=== PATIENT | male | born 1945 | race African-American/Black ===

== ENCOUNTER 2019-11-16 22:38 | Inpatient (IN) | payer OTHER ==
[2019-11-16 23:19] LABS: Absolute Lymphocytes (CBC) 0.8 K/uL (0.7-4.9); Basophils % 0.4 % (0-1.3); Hematocrit 35.2 % (39.6-49.0); Lymphocytes % 5.9 % (15.3-44.8); MPV 9.1 fL (7.6-11.3); RBC Red Blood Cell Count 4.22 M/uL (4.33-5.43)
[2019-11-16 23:51] LABS: Protime INR 1.33
[2019-11-17 00:06] LABS: Albumin 3.7 g/dL (3.4-5.0); Bilirubin Direct 0.5 mg/dL (0-0.2); Magnesium 2.1 mg/dL (1.8-2.4); Potassium 3.8 mmol/L (3.5-5.1); Protein, Total 7.5 g/dL (6.4-8.2); Troponin (Emerg Dept Use Only) 0.06 ng/mL (0.0-0.045)
[2019-11-17 00:20] LABS: Anisocytosis 1+; Blood Morphology Comment NOTED (NOT SEEN); Platelet Estimate ADEQ
--- NOTE | 2019-11-17 01:53 | ER ---
Nurse's Notes [facility] Name: Eze Wallace Age: 74 yrs Sex: Male : 1945 Arrival Date: 11/16/2019 Time: 22:48 Bed 20 Private MD: Diagnosis: Unspecified combined systolic (congestive) and diastolic (congestive) heart failure;Weakness Presentation: 11/16 22:49 Presenting complaint: Child states: He fell yesterday walking down the ramp at his [place] house. we took him to the [place] to have him checked out because he usually walks well They discharged him after giving him potassium. Today he was having trouble getting around and slowly fell down in the bathroom. The last time this happened he was having oxygen depravation because of sleep apnea. Transition of care: patient was not received from another setting of care. Onset of symptoms was November 15, 2019. Risk Assessment: Do you want to hurt yourself or someone else? Patient reports no desire to harm self or others. Initial Sepsis Screen: Does the patient meet any 2 criteria? No. Patient's initial sepsis screen is negative. Does the patient have a suspected source of infection? No. Patient's initial sepsis screen is negative. Care prior to arrival: None. 22:49 Method Of Arrival: EMS: [facility] tl1 22:49 Acuity: MIRIAM 2 tl1 Historical: - Allergies: 22:58 No Known Allergies; tl1 - Home Meds: 22:58 Potassium Chloride Oral [Active]; Aspirin Oral [Active]; hydrochlorothiazide Oral tl1 [Active]; lisinopril Oral [Active]; tamulosin [Active]; Omeprazole Oral [Active]; carvedilol oral oral [Active]; atorvastatin oral oral [Active]; finasteride oral oral [Active]; - PMHx: 22:58 Hypertension; BPH; High Cholesterol; Obesity; tl1 - Immunization history:: Adult Immunizations up to date. - Social history:: Smoking status: Patient/guardian denies using tobacco, never smoked. - Ebola Screening: : Patient negative for fever greater than or equal to 101.5 degrees Fahrenheit, and additional compatible Ebola Virus Disease symptoms Patient denies exposure to infectious person Patient denies travel to an Ebola-affected area in the 21 days before illness onset. Screenin:11 Abuse screen: Denies threats or abuse. Denies injuries from another. Nutritional rv screening: No deficits noted. Tuberculosis screening: No symptoms or risk factors identified. Fall Risk None identified. Assessment: 23:10 General: Appears in no apparent distress. uncomfortable, Behavior is calm, cooperative. rv Pain: Complains of pain in knees, generalized. Neuro: Level of Consciousness is awake, alert, obeys commands, Oriented to person, place, time, situation. Cardiovascular: Patient's skin is warm and dry. Respiratory: Airway is patent. GI: No signs and/or symptoms were reported involving the gastrointestinal system. : No signs and/or symptoms were reported regarding the genitourinary system. EENT: No signs and/or symptoms were reported regarding the EENT system. Derm: Skin is intact. Musculoskeletal: No signs and/or symptoms reported regarding the musculoskeletal system. 11/17 01:34 Reassessment: Patient appears in no apparent distress at this time. Patient and/or rv family updated on plan of care and expected duration. Pain level reassessed. Patient is alert, oriented x 3, equal unlabored respirations, skin warm/dry/pink. awaiting CT scan result. Vital Signs: 11/16 23:00 BP 145 / 94; Pulse 93; Resp 19; Temp 98.9; Pulse Ox 98% on R/A; Weight 195.04 kg; tl1 Height 6 ft. 0 in. (182.88 cm); Pain 5/10; 11/17 00:00 BP 139 / 77; Pulse 87; Resp 18; Pulse Ox 97% on R/A; rv 01:00 BP 138 / 68; Pulse 96; Resp 18; Pulse Ox 96% on R/A; rv 02:18 BP 132 / 105; Pulse 103; Resp 22; Pulse Ox 97% on R/A; Pain 0/10; tl1 04:05 BP 138 / 90; Pulse 98; Resp 20; Temp 98.1; Pulse Ox 95% on R/A; Pain 0/10; tl1 11/16 23:00 Body Mass Index 58.32 (195.04 kg, 182.88 cm) tl1 ED Course: 11/16 22:48 Patient arrived in ED. tl1 22:51 Carlos Augustine MD is Attending Physician. tw4 22:51 Jai, Donn, RN is Primary Nurse. rv 22:54 Triage completed. tl1 23:00 Arm band placed on right wrist. tl1 23:11 Patient has correct armband on for positive identification. Bed in low position. Call rv light in reach. Side rails up X2. Adult w/ patient. Pulse ox on. NIBP on. 23:11 Inserted saline lock: 20 gauge in right antecubital area, using aseptic technique. rv Blood collected. Missed attempt(s): 22 gauge in right antecubital area. 23:29 XRAY Chest (1 view) In Process Unspecified. EDMS 12 00:49 CT completed. Pt tolerated procedure poorly. Patient moved to CT via stretcher. Patient moved back from CT. 01:01 CT Head Brain wo Cont In Process Unspecified. EDMS 01:51 Sheldon Paulino MD is Hospitalizing Provider. tw4 04:01 Pillow given. tl1 04:01 Cleaned of incontinence. Linen changed. tl1 04:01 No provider procedures requiring assistance completed. Patient admitted, IV remains in tl1 place. 04:10 Jean cath inserted, using sterile technique, 18 Fr., by pr, balloon inflated, to ao gravity drainage, returned didier urine. Patient tolerated well. Administered Medications: 02:18 Drug: Lasix 40 mg Route: IVP; Infused Over: 4 mins; Site: left forearm; tl1 04:40 Follow up: Response: No adverse reaction; Marked relief of symptoms tl1 Output: 04:39 Urine: 900ml (Jean); Total: 900ml. tl1 Outcome: 01:52 Decision to Hospitalize by Provider. tw4 04:39 Admitted to Tele accompanied by nurse, accompanied by tech, via stretcher, with chart. tl1 04:39 Condition: stable 04:39 Instructed on the need for admit. 04:41 Patient left the ED. tl1 Signatures: Dispatcher [employer] EDMS Chavez Melton Roseanne Rhodes, RN RN tl1 Terry Rodriguez RN RN ao Wadley, Terrence, MD MD tw4 Donn Vergara, SAMI RN rv
--- NOTE | 2019-11-17 01:53 | EDPHYS ---
Physician Documentation [facility] Name: Eze Wallace Age: 74 yrs Sex: Male : 1945 Arrival Date: 11/16/2019 Time: 22:48 Bed 20 Private MD: ED Physician Carlos Augustine HPI: 11/17 04:32 This 74 yrs old Black Male presents to ER via EMS with complaints of General Weakness. tw4 04:32 The patient presents with generalized weakness. Onset: The symptoms/episode tw4 began/occurred today. Context: occurred at home. Modifying factors: The symptoms are alleviated by nothing, the symptoms are aggravated by nothing. Associated signs and symptoms: The patient has no apparent associated signs or symptoms. Severity of symptoms: At their worst the symptoms were moderate in the emergency department the symptoms have resolved. The patient has not experienced similar symptoms in the past. Historical: - Allergies: 11/16 22:58 No Known Allergies; tl1 - Home Meds: 22:58 Potassium Chloride Oral [Active]; Aspirin Oral [Active]; hydrochlorothiazide Oral tl1 [Active]; lisinopril Oral [Active]; tamulosin [Active]; Omeprazole Oral [Active]; carvedilol oral oral [Active]; atorvastatin oral oral [Active]; finasteride oral oral [Active]; - PMHx: 22:58 Hypertension; BPH; High Cholesterol; Obesity; tl1 - Immunization history:: Adult Immunizations up to date. - Social history:: Smoking status: Patient/guardian denies using tobacco, never smoked. - Ebola Screening: : Patient negative for fever greater than or equal to 101.5 degrees Fahrenheit, and additional compatible Ebola Virus Disease symptoms Patient denies exposure to infectious person Patient denies travel to an Ebola-affected area in the 21 days before illness onset. ROS: 11/17 04:32 Constitutional: Negative for fever, chills, and weight loss, Eyes: Negative for injury, tw4 pain, redness, and discharge, Cardiovascular: Negative for chest pain, palpitations, and edema, Respiratory: Negative for shortness of breath, cough, wheezing, and pleuritic chest pain, Abdomen/GI: Negative for abdominal pain, nausea, vomiting, diarrhea, and constipation, Back: Negative for injury and pain, MS/Extremity: Negative for injury and deformity, Skin: Negative for injury, rash, and discoloration. Neuro: Positive for weakness, Negative for altered mental status, dizziness, gait disturbance, headache, hearing loss, loss of consciousness, numbness, seizure activity, speech changes, syncope. Psych: Exam: 04:32 Constitutional: This is a well developed, well nourished patient who is awake, alert, tw4 and in no acute distress. Head/Face: Normocephalic, atraumatic. Chest/axilla: Normal chest wall appearance and motion. Nontender with no deformity. No lesions are appreciated. Cardiovascular: Regular rate and rhythm with a normal S1 and S2. No gallops, murmurs, or rubs. Normal PMI, no JVD. No pulse deficits. Respiratory: Lungs have equal breath sounds bilaterally, clear to auscultation and percussion. No rales, rhonchi or wheezes noted. No increased work of breathing, no retractions or nasal flaring. Abdomen/GI: Soft, non-tender, with normal bowel sounds. No distension or tympany. No guarding or rebound. No evidence of tenderness throughout. Back: No spinal tenderness. No costovertebral tenderness. Full range of motion. MS/ Extremity: Pulses equal, no cyanosis. Neurovascular intact. Full, normal range of motion. Neuro: Awake and alert, GCS 15, oriented to person, place, time, and situation. Cranial nerves II-XII grossly intact. Motor strength 5/5 in all extremities. Sensory grossly intact. Cerebellar exam normal. Normal gait. Vital Signs: 11/16 23:00 BP 145 / 94; Pulse 93; Resp 19; Temp 98.9; Pulse Ox 98% on R/A; Weight 195.04 kg; tl1 Height 6 ft. 0 in. (182.88 cm); Pain 5/10; 11/17 00:00 BP 139 / 77; Pulse 87; Resp 18; Pulse Ox 97% on R/A; rv 01:00 BP 138 / 68; Pulse 96; Resp 18; Pulse Ox 96% on R/A; rv 02:18 BP 132 / 105; Pulse 103; Resp 22; Pulse Ox 97% on R/A; Pain 0/10; tl1 04:05 BP 138 / 90; Pulse 98; Resp 20; Temp 98.1; Pulse Ox 95% on R/A; Pain 0/10; tl1 11/16 23:00 Body Mass Index 58.32 (195.04 kg, 182.88 cm) tl1 MDM: 11/16 22:51 Patient medically screened. tw4 11/17 04:36 Differential diagnosis: cardiac arrhythmia, CVA, GI bleed. Data reviewed: vital signs, tw4 nurses notes. Data interpreted: Pulse oximetry: Interpretation: normal. Counseling: I had a detailed discussion with the patient and/or guardian regarding: the historical points, exam findings, and any diagnostic results supporting the discharge/admit diagnosis, lab results. Special discussion: I discussed with the patient/guardian in detail that at this point there is no indication for admission to the hospital. It is understood, however, that if the symptoms persist or worsen the patient needs to return immediately for re-evaluation. 04:37 Physician consultation: Sheldon Paulino MD regarding admission, to the telemetry unit. tw4 patient's condition, and will see patient in inpatient room. ED course: Pt underwent CT for previous neurologic symptoms that he had a day ago. CT scan negative. Pt CXR revealed CXR. will admit for weakness and CHf. D/W Dr Sanchez will obtain a neuro consult. 11/16 22:51 Order name: Basic Metabolic Panel; Complete Time: 00:24 tw4 11/17 00:26 Interpretation: Normal except: GLUC 109; BUN 26; CRE 1.40; GFR 60. tw4 11/16 22:51 Order name: CBC with Diff; Complete Time: 00:24 tw4 11/17 00:26 Interpretation: Normal except: WBC 13.0; RBC 4.22; HGB 11.6; HCT 35.2; MCV 83.5; LYM% tw4 5.9; GUSTAVO% 85.7; RDW 18.7; NEUT A 11.1. 11/16 22:51 Order name: LFT's; Complete Time: 00:24 4 11/17 00:27 Interpretation: Normal except: AST 109; BILIT 2.0; BILID 0.5; GLOB 3.8; A/G 1.0. tw4 11/16 22:51 Order name: Magnesium; Complete Time: 00:24 tw4 11/17 00:28 Interpretation: Within normal limits: MG 2.1. tw4 11/16 22:51 Order name: NT PRO-BNP; Complete Time: 00:24 tw4 11/17 00:27 Interpretation: Within normal limits: NT PRO-BNP 742. tw4 11/16 22:51 Order name: PT-INR; Complete Time: 00:24 tw4 11/17 00:27 Interpretation: Normal except: PT 15.5. tw4 11/16 22:51 Order name: Troponin (emerg Dept Use Only); Complete Time: 00:24 tw4 11/17 00:27 Interpretation: Abnormal: TROPED 0.06. tw4 11/16 23:51 Order name: Manual Differential; Complete Time: 00:24 EDMS 11/17 00:28 Interpretation: Normal except: SEGS 86; LYM 10. tw4 11/17 00:59 Order name: Urine Microscopic Only rv 11/17 01:00 Order name: Urine Dipstick--Ancillary (enter results) nj 11/17 02:31 Order name: Urine Culture EDCA 11/17 03:32 Order name: CBC with Automated Diff EDMS 11/17 03:32 Order name: CBC with Automated Diff EDMS 11/17 03:33 Order name: Comprehensive Metabolic Panel EDCA 11/16 22:51 Order name: XRAY Chest (1 view) tw4 11/17 00:22 Order name: CT Head Brain wo Cont rv 11/17 03:32 Order name: Echo with Doppler EDMS 11/17 03:33 Order name: Comprehensive Metabolic Panel EDMS 11/17 03:33 Order name: Magnesium EDMS 11/17 03:33 Order name: Magnesium EDMS 11/17 03:33 Order name: Phosphorus EDMS 11/17 03:33 Order name: Phosphorus EDMS 11/17 03:33 Order name: NT PRO-BNP EDMS 11/17 03:33 Order name: NT PRO-BNP EDMS 11/17 03:33 Order name: Protime (+INR) EDMS 11/17 03:33 Order name: Protime (+INR) EDMS 11/17 03:33 Order name: PTT, Activated Partial Thromb EDMS 11/17 03:33 Order name: PTT, Activated Partial Thromb EDMS 11/17 03:33 Order name: Troponin I EDMS 11/17 03:33 Order name: Troponin I EDMS 11/16 22:51 Order name: EKG; Complete Time: 22:57 tw4 11/16 22:51 Order name: Cardiac monitoring; Complete Time: 23:11 tw4 11/16 22:51 Order name: EKG - Nurse/Tech; Complete Time: 23:11 4 11/16 22:51 Order name: IV Saline Lock; Complete Time: 23:11 4 11/16 22:51 Order name: Labs collected and sent; Complete Time: 23:11 tw4 11/16 22:51 Order name: O2 Per Protocol; Complete Time: 23:11 tw4 11/16 22:51 Order name: O2 Sat Monitoring; Complete Time: 23:11 tw4 11/17 03:32 Order name: [facility] 11/17 04:02 Order name: Jean; Complete Time: 04:40 tl1 EC:32 Rate is 86 beats/min. Rhythm is regular. QRS [place] is Normal. ID interval is normal. QT tw4 interval is normal. No Q waves. T waves are Inverted in leads V3, V4, V5. No ST changes noted. Clinical impression: NSR w/ Non-specific ST/T Changes. Interpreted by me. Reviewed by me. Administered Medications: 02:18 Drug: Lasix 40 mg Route: IVP; Infused Over: 4 mins; Site: left forearm; tl1 04:40 Follow up: Response: No adverse reaction; Marked relief of symptoms tl1 Disposition: 11/17/19 01:52 Hospitalization ordered by Sheldon Paulino for Inpatient Admission. Preliminary diagnosis are Unspecified combined systolic (congestive) and diastolic (congestive) heart failure, Weakness. - Bed requested for Telemetry/MedSurg (Inpatient). - Status is Inpatient Admission. tl1 - Condition is Stable. - Problem is new. - Symptoms are unchanged. UTI on Admission? No Signatures: Dispatcher [employer] [facility] Roseanne Rhodes RN RN tl1 Liyah Hart RN RN Carlos Augustine MD MD tw4 Corrections: (The following items were deleted from the chart) 03:43 01:52 Hospitalization Ordered by Sheldon Paulino MD for Inpatient Admission. Preliminary cg diagnosis is Unspecified combined systolic (congestive) and diastolic (congestive) heart failure; Weakness. Bed requested for Telemetry/MedSurg (Inpatient). Status is Inpatient Admission. Condition is Stable. Problem is new. Symptoms are unchanged. UTI on Admission? No. tw4 04:41 03:43 11/17/2019 01:52 Hospitalization Ordered by Sheldon Paulino MD for Inpatient tl1 Admission. Preliminary diagnosis is Unspecified combined systolic (congestive) and diastolic (congestive) heart failure; Weakness. Bed requested for Telemetry/MedSurg (Inpatient). Status is Inpatient Admission. Condition is Stable. Problem is new. Symptoms are unchanged. UTI on Admission? No. cg
[2019-11-17] MEDS ORDERED: FUROSEMIDE 40 MG/4 ML VIAL ONE (02:08)
[2019-11-17 02:27] LABS: Urine Bacteria >50 /HPF (NONE SEEN); Urine Culture Reflex Order REFLEXED; Urine Mucus 4+ /HPF (NONE SEEN); Urine RBC <5 /HPF (NONE SEEN); Urine Urothelial Cells <5 /HPF (NONE SEEN)
[2019-11-17 02:28] LABS: Urine Blood 2+ (NEG); Urine Glucose NEGATIVE (NEG); Urine Protein 2+ (NEG); Urine Specific Gravity >1.030 (1.005-1.030)
[2019-11-17] MEDS ORDERED: ACETAMINOPHEN 500 MG TAB PO PRN (03:26)
[2019-11-17] MEDS ORDERED: ONDANSETRON 4 MG/2 ML VIAL IV PRN (03:26)
[2019-11-17] MEDS ORDERED: POTASSIUM CL SA 10 MEQ TAB PO ONE (05:26)
[2019-11-17] MEDS: FUROSEMIDE 40 MG/4 ML VIAL IV SCH ×3 (05:48→17:15)
[2019-11-17] MEDS ORDERED: HYDROCORTISONE SUC 100 MG INJ IV ONE ×2 (05:50→22:34)
[2019-11-17] MEDS: METOPROLOL TAR 50 MG TAB PO SCH ×3 (06:20→21:41)
[2019-11-17] MEDS ORDERED: CEFTRIAXONE/SWI 1gm 1 GM/10 ML SYR IV SCH (07:00)
--- NOTE | 2019-11-17 07:49 | EKG ---
Test Date: 2019-11-16 Test Time: 23:16:04 Sales Porter: DINO MEASUREMENT RESULTS: Intervals: Rate: 86 RI: 176 QRSD: 110 QT: 376 QTc: 449 [place]: P: 40 RI: 176 QRS: -19 T: -31 INTERPRETIVE STATEMENTS: Normal sinus rhythm Nonspecific T wave abnormality Abnormal ECG Compared to ECG 02/16/2007 15:51:30 T-wave abnormality now present Electronically Signed On 11-17-19 07:49:00 SECRETARY ADMINISTRATIVE ASSISTANT by Milo Wilson
--- NOTE | 2019-11-17 08:09 | RAD REPORT ---
EXAM DESCRIPTION: RAD - Chest Single View - 11/16/2019 11:29 pm CLINICAL HISTORY: MALAISE Chest pain. COMPARISON: No comparisons FINDINGS: Portable technique limits examination quality. Mild to moderate pulmonary edema is seen bilaterally. The heart is moderately enlarged with a tortuou s thoracic aorta. No displaced fractures.
--- NOTE | 2019-11-17 08:13 | RAD REPORT ---
EXAM DESCRIPTION: RAD - Knee Left 2 View - 11/17/2019 6:57 am CLINICAL HISTORY: pain COMPARISON: Chest Single View dated 11/16/2019 FINDINGS: The examination is limited due to nonstandard anatomic positioning. Severe tricompartmenta l osteoarthritis is noted with [id number]. A small suprapatellar joint effusion is evident. Soft ti ssue swelling is evident along the anterior aspect of the knee. Bony fragmentation along the inferior patella seen, age undetermined. Correlation with point tenderness in this region would be suggested. IMPRESSION: Advanced tricompartmental osteoarthritis.
[2019-11-17] MEDS: CLOPIDOGREL 75 MG TABLET PO SCH (08:25)
[2019-11-17] MEDS: ASPIRIN EC 81 MG TAB PO SCH (08:25)
[2019-11-17] MEDS: ENOXAPARIN 40 MG/0.4 ML SQ SCH (08:25)
--- NOTE | 2019-11-17 08:30 | P.HP ---
Certification for Inpatient Patient admitted to: Inpatient With expected LOS: >2 Midnights Patient will require the following post-hospital care: None Practitioner: I am a practitioner with admitting privileges, knowledge of patient current condition, hospital course, and medical plan of care. Services: Services provided to patient in accordance with Admission requirements found in Title 42 Section 412.3 of the Code of Federal Regulations Patient History Date of Service: 11/17/19 Reason for admission: Syncope; knee pain History of Present Illness: Patient is a 74-year-old gentleman who fell a few days ago. He apparently had a near syncopal event but was able to catch himself. He went to the emergency room at the [facility] in his workup was unremarkable. He was sent home but he has continued to have pain in his knee. He tried to stand up yesterday and fell to his knees. He came into the hospital for further evaluation. Into the emergency room his workup revealed bilateral arthropathy as well as dyspnea. He has been short of breath for the last few days. Is given him a hard time getting around. He will be admitted to the hospital for CHF exacerbation. He does have bilateral warm knees and it appears he may have arthropathy. Unknown etiology. Patient has multiple comorbidities. He has morbid obesity, hypertension, diabetes, and patient also has lymphedema. He will be admitted to the hospital for further workup. Allergies No Known Allergies Allergy (Verified 11/17/19 04:55) Home Medications: Acetaminophen [Tylenol] 2 tab PO BIDP PRN 11/17/19 Aspirin Chewable [Aspirin Chewable*] 1 tab PO DAILY 11/17/19 Atorvastatin Calcium [Lipitor] 1 tab PO DAILY 11/17/19 Carvedilol [Coreg] 1 tab PO BID 11/17/19 Cetirizine HCl [Allergy Relief] 1 tab PO DAILY PRN 11/17/19 Finasteride [Proscar*] 1 tab PO DAILY 11/17/19 Lisinopril [Zestril] 1 tab PO DAILY 11/17/19 Omeprazole [Prilosec] 1 tab PO DAILY 11/17/19 Potassium Chloride 1 tab PO DAILY 11/17/19 Tamsulosin [Flomax*] 1 tab PO DAILY 11/17/19 hydroCHLOROthiazide [Hydrochlorothiazide] 1 tab PO DAILY 11/17/19 - Past Medical/Surgical History Has patient received pneumonia vaccine in the past: Yes Diabetic: Yes -: sleep apnea -: HTN -: HLD -: obesity -: lymphedema -: DM-borderline not on medication -: CHF Past Surgical History: Patient denies surgical history - Family History Father History Unknown: Yes Mother History Unknown: Yes - Social History Smoking Status: Former smoker Alcohol use: No CD- Drugs: No Caffeine use: No Place of Residence: Home Review of Systems 10-point ROS is otherwise unremarkable Physical Examination - Vital Signs Temperature: 98.7 F Blood Pressure: 145/74 Pulse: 82 Respirations: 16 Pulse Ox (%): 94 - Physical Exam General: Alert, In no apparent distress, Oriented x3 HEENT: Atraumatic, PERRLA, Mucous membr. moist/pink, EOMI, Sclerae nonicteric Neck: Supple, 2+ carotid pulse no bruit, No LAD, Without JVD or thyroid abnormality Respiratory: Diminished, Crackles/rales Cardiovascular: Regular rate/rhythm, Normal S1 S2, Systolic murmur Gastrointestinal: Normal bowel sounds, Soft and benign, Non-distended, No tenderness Musculoskeletal: No clubbing, No tenderness, Swelling Integumentary: No rashes, Tenderness/swelling Neurological: Normal gait, Normal speech, Normal strength at 5/5 x4 extr, Normal tone, Sensation intact, Cranial nerves 3-12 intact, Normal affect Lymphatics: No axilla or inguinal lymphadenopathy - Studies Laboratory Data (last 24 hrs) 11/16/19 23:05: PT 15.5 H, INR 1.33 11/16/19 23:05: WBC 13.0 H, Hgb 11.6 L, Hct 35.2 L, Plt Count 205 11/16/19 23:05: Sodium 141, Potassium 3.8, BUN 26 H, Creatinine 1.40 H, Glucose 109 H, Magnesium 2.1, Total Bilirubin 2.0 H, AST 109 H, ALT 53, Alkaline Phosphatase 76 Assessment & Plan - Problems (Diagnosis) (1) Lymphedema Current Visit: Yes Status: Acute (2) Congestive heart failure Current Visit: Yes Status: Acute Qualifiers: Heart failure type: systolic Heart failure chronicity: acute Qualified Code(s): I50.21 - Acute systolic (congestive) heart failure (3) Hypertension Current Visit: Yes Status: Acute (4) Type 2 diabetes mellitus Current Visit: Yes Status: Acute (5) Status post fall Current Visit: Yes Status: Acute (6) Syncope Current Visit: Yes Status: Acute (7) Morbid obesity with BMI of 60.0-69.9, adult Current Visit: Yes Status: Acute - Plan 1. Echocardiogram 2. Continue with treatment of her arthropathy 3. Continue with low dose Beta paulina 4. Cardiology consultation 5. Aggressive diuresis 6. Strict I's and O's 7. Repeat CXR 8. Daily weights 9. Anti-inflammatory but avoid NSAIDs 10. Physical therapy consultation 11. GI and DVT prophylaxis Discharge Plan: Home Plan to discharge in: Greater than 2 days - Advance Directives Does patient have a Living Will: Yes Does patient have a Durable POA for Healthcare: Yes - Code Status/Comfort Care Code Status Assessed: Yes Code Status: Full Code Critical Care: No Time Spent Managing PTS Care (In Minutes): 45
--- NOTE | 2019-11-17 11:23 | RAD REPORT ---
EXAM DESCRIPTION: Head Brain Wo Cont CLINICAL HISTORY: WEAKNESS COMPARISON: None Available. TECHNIQUE: Multiple helical axial tomographic images were obtained of the head without intravenous c ontrast. This exam was performed according to our departmental dose-optimization program, which inclu hardeep automated exposure control, adjustment of the mA and/or kV according to patient size and/or use o f iterative reconstruction technique. FINDINGS: Mild generalized brain volume loss is demonstrated. There is mild hypoattenuation in the c erebral white matter which is nonspecific but suggestive of chronic microvascular ischemic changes. T here is no acute intracranial hemorrhage. No mass. No midline shift. No ventriculomegaly. Blake-white matter differentiation is maintained. Paranasal sinuses are clear. Mastoid air cells and middle ear spaces are clear. Orbits and orbital co ntents are unremarkable. Osseous structures are unremarkable. Surrounding soft tissues are unremarkable. IMPRESSION: No acute intracranial process. Electronically signed by: Walt Gambino MD 11/17/2019 1:04 AM SOLDERER Due to temporary technical issues with the PACS/Fluency reporting system, reports are being signed by the in house radiologist as a courtesy to ensure prompt reporting. The interpreting radiologist is f ully responsible for the content of the report.
--- NOTE | 2019-11-17 14:32 | P.PN ---
Date of Service: 11/17/19 Patient states he feels much better after IV Lasix given in the ED. He is diuresing. He is currently not orthopneic. He is complaining of pain in bilateral knees. Breath sounds are diminished on lung auscultation. Bilateral knee is warm to touch, more swollen on the left and tender. Continue IV Lasix Jean catheter inserted, strict I&Os. Echocardiogram is pending. Knee x-ray report severe osteoarthritis. Check uric acid level Pain management as needed.
[2019-11-17] MEDS: CEFTRIAXONE/SWI 1gm 1 GM/10 ML SYR IV SCH (21:41)
[2019-11-17] MEDS ORDERED: WATER FOR INJ,STERILE 10 ML ONE (22:55)
[2019-11-18 06:10] LABS: Protime INR 1.18
[2019-11-18 06:22] LABS: Albumin 2.9 g/dL (3.4-5.0); Bilirubin Total 1.1 mg/dL (0.2-1.0); Magnesium 2.2 mg/dL (1.8-2.4); Potassium 3.7 mmol/L (3.5-5.1); Protein, Total 6.4 g/dL (6.4-8.2); Uric Acid 4.8 mg/dL (3.5-7.2)
[2019-11-18 06:39] LABS: Absolute Lymphocytes (CBC) 0.8 K/uL (0.7-4.9); Basophils % 0.4 % (0-1.3); Hematocrit 31.5 % (39.6-49.0); Lymphocytes % 8.2 % (15.3-44.8); RBC Red Blood Cell Count 3.79 M/uL (4.33-5.43)
--- NOTE | 2019-11-18 07:51 | ECHO ---
HEIGHT: 6 ft 0 in WEIGHT: 427 lb 8 oz DATE OF STUDY: 11/17/[address]: Sheldon Paulino MD 2-DIMENSIONAL: YES M.MODE: YES DOPPLER: YES COLOR FLOW: YES TDS: YES PORTABLE: NO DEFINITY: NO BUBBLE STUDY: NO DIAGNOSIS: CONGESTIVE HEART FAILURE CARDIAC HISTORY: CATHERIZATION: NO SURGERY: NO PROSTHETIC VALVE: NO PACEMAKER: NO MEASUREMENTS (cm) DIASTOLIC (NORMALS) SYSTOLIC (NORMALS) IVSd 1.3 (0.6-1.2) LA Diam 4.1 (1.9-4.0) LVEF 59% LVIDd 4.7 (3.5-5.7) LVIDs 3.2 (2.0-3.5) %FS 31% LVPWd 1.3 (0.6-1.2) Ao Diam 3.0 (2.0-3.7) 2 DIMENSIONAL ASSESSMENT: RIGHT ATRIUM: NORMAL LEFT ATRIUM: DILATED RIGHT VENTRICLE: NORMAL LEFT VENTRICLE: LEFT VENTRICULAR HYPERTROPHY TRICUSPID VALVE: NORMAL MITRAL VALVE: NORMAL PULMONIC VALVE: NORMAL AORTIC VALVE: SCLEROSIS PERICARDIAL EFFUSION: NONE AORTIC ROOT: NORMAL LEFT VENTRICULAR WALL MOTION: NORMAL DOPPLER/COLOR FLOW: NO AORTIC STENOSIS OR AORTIC REGURGITATION. IMPAIRED LEFT VENTRICULAR RELAXATION. COMMENTS: NORMAL LEFT VENTRICULAR EJECTION FRACTION. LEFT VENTRICULAR HYPERTROPHY. AORTIC SCLEROSIS WITH NO AORTIC STENOSIS OR AORTIC REGURGITATION. IMPAIRED LEFT VENTRICULAR RELAXATION. TECHNOLOGIST: Joy DYE
[2019-11-18] MEDS ORDERED: POTASSIUM CL SA 10 MEQ TAB PO ONE (08:00)
[2019-11-18] MEDS: CLOPIDOGREL 75 MG TABLET PO SCH (08:38)
[2019-11-18] MEDS: METOPROLOL TAR 50 MG TAB PO SCH ×2 (08:38→20:40)
[2019-11-18] MEDS: ASPIRIN EC 81 MG TAB PO SCH (08:39)
[2019-11-18] MEDS: FUROSEMIDE 40 MG/4 ML VIAL IV SCH ×2 (08:39→18:11)
[2019-11-18] MEDS: ENOXAPARIN 40 MG/0.4 ML SQ SCH (08:39)
--- NOTE | 2019-11-18 12:35 | P.PN ---
Subjective Date of Service: 11/18/19 Chief Complaint: Falls; knee pain Patient states he feels much better today. He reports less pain in bilateral knee are better. He is not orthopneic. Physical Examination - Vital Signs Temperature: 97.0 F Blood Pressure: 138/71 Pulse: 67 Respirations: 20 Pulse Ox (%): 97 - Physical Exam General: Alert, In no apparent distress HEENT: Mucous membr. moist/pink Neck: JVD not distended Respiratory: Clear to auscultation bilaterally (Trace bilateral lower extremity edema), Diminished Cardiovascular: Edema Gastrointestinal: Normal bowel sounds, Soft and benign, No tenderness Musculoskeletal: Other (Left knee swelling with mild erythema.) Neurological: Normal speech, Other (No focal deficits) Assessment And Plan - Current Problems (Diagnosis) (1) Acute diastolic heart failure Current Visit: Yes Status: Acute (2) Arthritis Current Visit: Yes Status: Acute (3) Lymphedema Current Visit: Yes Status: Acute (4) Morbid obesity with BMI of 60.0-69.9, adult Current Visit: Yes Status: Acute (5) Status post fall Current Visit: Yes Status: Acute (6) Type 2 diabetes mellitus Current Visit: Yes Status: Acute (7) UTI (urinary tract infection) Current Visit: Yes Status: Acute - Plan Continue IV Lasix for diuresis CHF and lymphedema. Continue IV Rocephin for UTI. Urine culture report mixed growth. Patient knee pain and swelling seems to have improved after a couple of shots of IV hydrocortisone. Will start short course oral prednisone 20 mg daily. Continue PT and OT PT recommended inpatient rehab versus skilled rehab Check hemoglobin A1c.
[2019-11-18] MEDS: CEFTRIAXONE/SWI 1gm 1 GM/10 ML SYR IV SCH (20:40)
[2019-11-19 07:08] VITALS: BMI 57.1
[2019-11-19 07:10] LABS: BUN Blood Urea Nitrogen 21 mg/dL (7-18); Bicarbonate 34 mmol/L (21-32); Glucose Level 106 mg/dL (74-106); Potassium 3.2 mmol/L (3.5-5.1); Sodium Level 142 mmol/L (136-145)
[2019-11-19] MEDS ORDERED: predniSONE 20 MG TAB PO SCH (09:00)
[2019-11-19] MEDS: ASPIRIN EC 81 MG TAB PO SCH (09:57)
[2019-11-19] MEDS: METOPROLOL TAR 50 MG TAB PO SCH (09:57)
[2019-11-19] MEDS: CLOPIDOGREL 75 MG TABLET PO SCH (09:58)
[2019-11-19] MEDS: FUROSEMIDE 40 MG/4 ML VIAL IV SCH ×2 (09:58→17:24)
[2019-11-19] MEDS: ENOXAPARIN 40 MG/0.4 ML SQ SCH (09:58)
[2019-11-19 12:17] VITALS: BP 160/83; TEMP 97.1
[2019-11-19] MEDS ORDERED: POTASSIUM 25 MEQ EFFERV TAB PO SCH (13:00)
--- NOTE | 2019-11-19 16:13 | P.PN ---
Subjective Date of Service: 11/19/19 Chief Complaint: Falls; knee pain No major changes from yesterday. He reports weakness in bilateral knees. He denies any shortness of breath. Physical Examination - Vital Signs Temperature: 97.1 F Blood Pressure: 160/83 Pulse: 88 Respirations: 18 Pulse Ox (%): 95 - Physical Exam General: In no apparent distress, Obese Neck: JVD not distended Respiratory: Clear to auscultation bilaterally, Diminished Cardiovascular: Regular rate/rhythm, Normal S1 S2 Gastrointestinal: Soft and benign, No tenderness Musculoskeletal: Other (Bilateral lower extremity, bilateral knees swelling have improved.) Neurological: Normal speech, Normal strength at 5/5 x4 extr - Studies Microbiology Data (last 24 hrs): 11/17/19 00:50 Clean Catch Urine [place] Count - Final >100,000 CFU/ML. 11/17/19 00:50 Clean Catch Urine - Final MIXED [place]. Assessment And Plan - Current Problems (Diagnosis) (1) Acute diastolic heart failure Current Visit: Yes Status: Acute (2) Arthritis Current Visit: Yes Status: Acute (3) Lymphedema Current Visit: Yes Status: Acute (4) Morbid obesity with BMI of 60.0-69.9, adult Current Visit: Yes Status: Acute (5) Status post fall Current Visit: Yes Status: Acute (6) Type 2 diabetes mellitus Current Visit: Yes Status: Acute (7) UTI (urinary tract infection) Current Visit: Yes Status: Acute - Plan Continue IV Lasix for diuresis CHF and lymphedema. Continue IV Rocephin for UTI. Urine culture report mixed growth. Planning for 5 days of antibiotic treatment for UTI. Continue oral prednisone 20 mg daily. Continue PT and OT PT recommended inpatient rehab versus skilled rehab
[2019-11-19 16:39] VITALS: O2SAT 93
--- NOTE | 2019-11-19 17:52 | P.DS ---
Admission Date: 11/17/19 Discharge Date: 11/19/19 Disposition: TRANSFER TO INPATIENT REHAB Discharge Condition: FAIR Reason for Admission: Falls; knee pain - Problems (1) Acute diastolic heart failure Current Visit: Yes Status: Acute (2) Arthritis Current Visit: Yes Status: Acute (3) Lymphedema Current Visit: Yes Status: Acute (4) Morbid obesity with BMI of 60.0-69.9, adult Current Visit: Yes Status: Acute (5) Status post fall Current Visit: Yes Status: Acute (6) Type 2 diabetes mellitus Current Visit: Yes Status: Acute (7) UTI (urinary tract infection) Current Visit: Yes Status: Acute Brief History of Present Illness: 74-year-old gentleman with a history of hypertension, morbidly obese presented to the ED with a complaint of weakness and pain in his bilateral knees. His EKG demonstrate sinus rhythm with nonspecific T-wave abnormality. Chest x-ray demonstrates findings suggestive of vascular congestion. His troponin was mildly elevated to 0.06. The patient had no complaint of chest. His bilateral knees were swollen, worse on the left. His knee x-rays reported advanced osteoarthritis. The patient was admitted for further management. Hospital Course: He was treated with IV Lasix and diuresed well with it. His shortness of breath improved. Echocardiogram was performed which reported normal EF. His renal function was stable. He was also placed on steroids with improvement in his bilateral knee pain and swelling. His UA suggested the presence of UTI. Urine culture yielded mixed growth. Patient was treated with IV Rocephin for UTI. Patient was seen by physical therapy and inpatient rehab recommended. He has been accepted for rehab. Patient is therefore discharged for acute rehab. Her home medications have been resumed on discharge. He is also prescribed Lasix 40 mg daily. He is also prescribed Augmentin for 5 days to complete treatment for UTI. Vital Signs/Physical Exam: Temp Pulse Resp BP Pulse Ox 97.1 F 88 18 160/83 H 95 11/19/19 16:13 11/19/19 17:24 11/19/19 16:13 11/19/19 17:24 11/19/19 16:13 General: In no apparent distress, Obese HEENT: Mucous membr. moist/pink Neck: JVD not distended Respiratory: Clear to auscultation bilaterally, Normal air movement, Diminished Cardiovascular: Regular rate/rhythm, Normal S1 S2, Edema Gastrointestinal: Normal bowel sounds, Soft and benign, No tenderness Musculoskeletal: Other (Bilateral lower extremity lymphedema) Neurological: Normal speech, Normal strength at 5/5 x4 extr Laboratory Data at Discharge: WBC 9.2 K/uL (4.3-10.9) D 11/18/19 05:34 Hgb 10.7 g/dL (13.6-17.9) L 11/18/19 05:34 Hct 31.5 % (39.6-49.0) L 11/18/19 05:34 Plt Count 184 K/uL (152-406) 11/18/19 05:34 PT 13.8 SECONDS (9.5-12.5) H 11/18/19 05:34 INR 1.18 11/18/19 05:34 APTT 25.0 SECONDS (24.3-36.9) 11/18/19 05:34 Sodium 142 mmol/L (136-145) 11/19/19 06:15 Potassium 3.2 mmol/L (3.5-5.1) L 11/19/19 06:15 BUN 21 mg/dL (7-18) H 11/19/19 06:15 Creatinine 0.96 mg/dL (0.55-1.3) 11/19/19 06:15 Glucose 106 mg/dL (74-106) 11/19/19 06:15 Uric Acid 4.8 mg/dL (3.5-7.2) 11/18/19 05:34 Phosphorus 3.0 mg/dL (2.5-4.9) 11/18/19 05:34 Magnesium 2.2 mg/dL (1.8-2.4) 11/18/19 05:34 Total Bilirubin 1.1 mg/dL (0.2-1.0) H 11/18/19 05:34 AST 91 U/L (15-37) H 11/18/19 05:34 ALT 60 U/L (12-78) 11/18/19 05:34 Alkaline Phosphatase 63 U/L (45-117) 11/18/19 05:34 Troponin I 0.06 ng/mL (0.0-0.045) H 11/17/19 07:10 Home Medications: Acetaminophen [Tylenol] 2 tab PO BIDP PRN 11/17/19 Aspirin Chewable [Aspirin Chewable*] 1 tab PO DAILY 11/17/19 Atorvastatin Calcium [Lipitor] 1 tab PO DAILY 11/17/19 Carvedilol [Coreg] 1 tab PO BID 11/17/19 Cetirizine HCl [Allergy Relief] 1 tab PO DAILY PRN 11/17/19 Finasteride [Proscar*] 1 tab PO DAILY 11/17/19 Lisinopril [Zestril] 1 tab PO DAILY 11/17/19 Omeprazole [Prilosec] 1 tab PO DAILY 11/17/19 Potassium Chloride 1 tab PO DAILY 11/17/19 Tamsulosin [Flomax*] 1 tab PO DAILY 11/17/19 hydroCHLOROthiazide [Hydrochlorothiazide] 1 tab PO DAILY 11/17/19 Amox/Clavulanate [Augmentin 875-125 Tab] 1 each PO BID #10 tab 11/19/19 Clopidogrel Bisulfate [Plavix*] 75 mg PO DAILY tablet 11/19/19 predniSONE [Prednisone*] 20 mg PO DAILY tab 11/19/19 New Medications: Amox/Clavulanate [Augmentin 875-125 Tab] 1 each PO BID #10 tab Diet: ADA Activity: Fall precautions Time spent managing pt's care (in minutes): 40
[2019-11-20] MEDS ORDERED: POTASSIUM 25 MEQ EFFERV TAB PO SCH (09:00)
== END 2019-11-19 19:55 | DRG 292 ==
LOC: ER 22:38 → ERHOLD 11-17 03:26 → 4TH 11-17 04:07
PROVIDERS: ADMIT Hospitalist; ATTEND Internal Medicine
DX: I11.0 Hypertensive heart disease with heart failure (principal); N39.0 Urinary tract infection, site not specified; Z68.44 Body mass index [BMI] 60.0-69.9, adult; I50.32 Chronic diastolic (congestive) heart failure; E66.01 Morbid (severe) obesity due to excess calories; E11.9 Type 2 diabetes mellitus without complications; E78.5 Hyperlipidemia, unspecified; G47.30 Sleep apnea, unspecified; R55 Syncope and collapse; Z91.81 History of falling
CPT/HCPCS: 36415; 51702; 70450; 71045; 80048; 80053; 80076; 81003; 81015; 82140; 83036; 83605; 83735; 83880; 84100; 84484; 84550; 85025; 85610; 85730; 87086; 87088; 93005; 93306; 96374; 97110; 97116; 97161; 97530; 99285; J0696; J1650; J1720; J1940; J7512

== ENCOUNTER 2019-11-19 15:29 | Inpatient (IN) | payer OTHER ==
--- NOTE | 2019-11-19 16:52 | R.PREADM ---
SCREENING DATE AND TIME 11/19/2019 16:11 (PRINTER FLOOR COVERING ASSISTANT) ANTICIPATED REHAB ADMISSION DATE 11/21/2019 REFERRING FACILITY [facility] REFERRAL DATE AND TIME 11/19/2019 16:11 (PRINTER FLOOR COVERING ASSISTANT) REFERRAL OFFICE PHONE [phone] REFERRAL ROOM# [id number] ACUTE ADMIT DATE 11/17/2019 Previous Rehabilitation(s): No. 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 Laureano Waller M.D. MR# [id number] NAME MELYSSA OBANDO ADDRESS [address] PHONE [facility] [address] DATE OF 1945 AGE 74 SSN# [id number] GENDER male MARITAL STATUS RACE black ADMIT FROM 02 - [facility] PRE-HOSPITAL LIVING SETTING 01 - Home (private home/apt. board/care, assisted living, penitentiary, transitional living) HOME TYPE AND DETAILS Type of home: single family house # of levels in the residence: 0 # of steps within the residence: 0 # of steps to enter the residence: 0 PRE-HOSPITAL LIVING WITH Alone FAMILY SUPPORT Yes PRIMARY FAMILY CONTACT NAME LUCAS BENTON PRIMARY FAMILY CONTACT PHONE 1ST EMERGENCY CONTACT LUCAS BENTON 1ST CONTACT PHONE PHONE 2ND CONTACT ON ADM.? no PATIENT EMPLOYMENT STATUS Retired (for age) PATIENT EMPLOYER No Employer PAYOR INFORMATION: 1ST PAYOR NAME Medicare 1ST PAYOR PHONE [phone] 1ST PAYOR INJURY/ILLNESS DUE TO ACCIDENT? No ANOTHER DEMOCRAT RESPONSIBLE? No PRIMARY REHAB/ACUTE DIAGNOSIS: CHF EXACERBATION ONSET DATE 11/17/2019 REHAB IMPAIRMENT CATEGORY (KAITLYN): 14 Cardiac does NOT meet 60% rule PRIMARY DIAGNOSIS-RELATED SURGERIES: No surgeries related to the primary diagnosis were performed. COMORBID REHAB/ACUTE DIAGNOSES: - N/A SLEEP APNEA HTN HLD OBESITY Chronic Lymphedema DM-BORDERLINE NOT ON MEDICATION CHF INTERVENTIONS: - Sleep Apnea 02 sats Oxygen Respiratory management RISK FOR COMPLICATIONS: - Sleep Apnea Anoxia BI CVA Fatigue CA SUMMARY OF ACUTE HOSPITALIZATION: Pt. is a 74 yo Right-handed black male. On 11/17/2019 he was admitted to [facility] with diagnosis CHF EXACERBATION . His impairment category is Cardiac 09 - Cardiac Disorders (09). Pre-morbidly, Pt. was independent/mod-I in Locomotion, Safety Awareness, Social Cognition, Transfers Control, Balance, Sphincter Control, Self-Care, Endurance, and Communication; and he had good Locomot ion, Safety Awareness, Balance, Social Cognition, Transfers Control, Sphincter Control, Communication , Endurance, and Self-Care. Currently, he has deficits of locomotion, transfers control, endurance, and self care . Pt. is now referred to [facility] for acute in-patient rehabilitation in order to maximize patient's functional independence in activities of daily living, strength, ROM, and mobi lity. Patient has realistic goal of being discharged at assistance level 6-[place] to reside at Home with Fam braden/Relatives. Melyssa Obando is a 77 year old male that lives alone in a single divine house. Modified independent with all ADLs and self care. On 11/17/2019, patient fell and his work up revealed bilateral arthropathy as well as dyspnea and has been short of breath for the last few days and was admitted to [facility] and treated. He is now medically stable but in need of 24-hour nursing, doctor supervision and oversite while receiving acti ve and ongoing intensive (PT, reasonably expected to participate in 3hours of therapy a day/15 hours per week and receive care with an intensive interdisciplinary approach. PAST MEDICAL HISTORY CHF Chronic Lymphedema DM-BORDERLINE NOT ON MEDICATION HLD HTN OBESITY SLEEP APNEA PAST SURGICAL HISTORY: N/A MEDICATION ALLERGIES: No Known Drug Allergies (NKDA) ENVIRONMENTAL ALLERGIES: None Known - Substance Allergies None Known - Other Allergies None Known CODE STATUS: Full code WEIGHT/HEIGHT/BMI: WEIGHT 427 lbs HEIGHT 6' 0" BMI 57.9 DIET: - Diet Type Regular - Diet - Solid Texture Regular - Diet - Liquid Texture Regular - Tube Feed N/A REVIEW OF SYSTEMS: - Gen Alert and awake Lying in bed No apparent distress Oriented to: person, time, and place - Vital Signs Temperature: 97.1 F SBP/DBP: 160/83 Pulse: 88 Resp: 18 Vital signs stable, afebrile - CVS RRR VITAL SIGNS Temperature: 97.1 F SBP/DBP: 160/83 Pulse: 88 Resp: 18 Vital signs stable, afebrile MEDICATIONS/TREATMENT: Other- See attached MAR (Medication Administration Record). CURRENT SPHINCTER CONTROL: Pre-hospital bladder status: continent # of bladder accidents in the last 7 days prior to screenin Pre-hospital bowel status: continent # of bowel accidents in the last 7 days prior to screenin Last Bowel Movement Date: 11/18/2019 CURRENT LOCOMOTION STATUS: distance walked 200 feet DETAILED CURRENT FUNCTIONAL STATUS: - Bladder accident frequency: Ind - No accidents in the past 7 days - Bowel accident frequency: Ind - No accidents in the past 7 days - Walking score based on distance walked: 0(N/A) score based on distance walked: 3(>=150ft) - Wheelchair score based on distance traveled: 0(N/A) QI SCORES: - Self-Care A. Eating 05-Setup or clean-up assistance B. Oral hygiene 05-Setup or clean-up assistance C. Toileting hygiene 04-Supervision or touching assistance E. Shower/bathe self 03-Partial/moderate assistance F. Upper body dressing 03-Partial/moderate assistance G. Lower body dressing 02-Substantial/maximal assistance H. Putting on/taking off footwear 02-Substantial/maximal assistance - Mobility A. Roll left and right 03-Partial/moderate assistance B. Sit to lying 03-Partial/moderate assistance C. Lying to sitting on side of bed 03-Partial/moderate assistance D. Sit to stand 03-Partial/moderate assistance E. Chair/[id number] transfer 03-Partial/moderate assistance F. Toilet transfer 03-Partial/moderate assistance G. Car transfer 88-Not attempted due to medical condition or safety concerns I. Walk 10 feet 04-Supervision or touching assistance J. Walk 50 feet with two turns 88-Not attempted due to medical condition or safety concerns K. Walk 150 feet 04-Supervision or touching assistance L. Walking 10 feet on uneven surfaces 88-Not attempted due to medical condition or safety concerns M. 1 step (curb) 88-Not attempted due to medical condition or safety concerns N. 4 steps 88-Not attempted due to medical condition or safety concerns O. 12 steps 88-Not attempted due to medical condition or safety concerns P. Picking up object 88-Not attempted due to medical condition or safety concerns R. Wheel 50 feet with two turns 88-Not attempted due to medical condition or safety concerns S. Wheel 150 feet 88-Not attempted due to medical condition or safety concerns - Bladder and Bowel Bladder continence 0-Always continent Bowel continence 0-Always continent - Endurance Fair - Balance Fair - Safety Awareness Fair CURRENT FUNC. DEFICITS: Self-Care, Mobility, Endurance, Balance, and Safety Awareness CURRENT / PREVIOUS ASSISTIVE DEVICES: 3-in-1 Commode BSC Home [facility] Bed Rolling Walker Shower Chair Tub Bench Wheelchair CURRENT USE ASSISTIVE DEVICES: SCDs HISTORY OF FALLS. HAS THE PATIENT HAD TWO OR MORE FALLS IN THE PAST YEAR OR ANY FALL WITH INJURY IN T HE PAST YEAR?: No PRIOR SURGERY. DID THE PATIENT HAVE MAJOR SURGERY DURING THE 100 DAYS PRIOR TO ADMISSION?: No THERAPY NOTES FROM ACUTE CARE: Attached. SPECIAL NEEDS: - Safety Concerns Skin breakdown precautions needed due to skin breakdown risk PATIENT NEEDS ACTIVE AND ONGOING THERAPEUTIC INTERVENTION OF MULTIPLE THERAPY DISCIPLINES, INCLUDING: - Dietary and Nutrition Adequate Nutrition. Nutritional Education. Nutritional Supplements. PATIENT NEEDS CLOSE MEDICAL SUPERVISION BY A REHABILITATION PHYSICIAN FOR: Coordination of Treatment Team Medical and Co-Morbidity Management PATIENT REQUIRES 24X7 REHAB NURSING FOR MEDICAL AND FUNCTIONAL MGT. OF THE FOLLOWING DEFICITS: Disease Management Medication Management Patient/Family Education Providing Safe Environment PATIENT REQUIRES INTENSIVE, COORDINATED INTERDISCIPLINARY APPROACH TO REHAB: Arranging Home Equipment/Services Discharge Planning Family Intervention/Training Water Jet Operator/Case Management PATIENT REHAB POTENTIAL: Saroj OBANDO is able and expected to receive 3 hours of individualized therapy daily on at least 5 of e very 7 days Saroj HERNANDEZs prognosis for significant practical improvement within a reasonable period of time appea rs Good Expected level of measurable improvement will be of a practical value to Saroj OBANDO's functional capa city or adaptations to impairments Has a viable Discharge Plan Medically appropriate; condition is sufficiently stable to participate in intensive rehab program DISCHARGE PLAN: - Estimated Length of Stay (days) 10. - Consensus on plan Discharge plan has been discussed with primary caregiver. Patient/Family is in agreement with the evelio n. Primary caregiver is in agreement with the plan. - Patient/Family Goals Return home with assistance. - Planned Living Setting Upon Discharge Home, to live with Family/Relatives. Transitional Living. RECOMMENDED CARE LEVEL: IRF RECOMMENDATION DETAILS: Recommended Admission to Comprehensive Rehabilitation Program to Increase Functional [place] SCREENER'S COMPLETENESS CONFIRMATION: - Screening Confirmation The patient data collection on this preadmission screening form is finished PHYSICIANS REVIEW AND ADMISSION DETERMINATION Admit - Based on my review of the Pre-Admission Screening results, in my medical judgment and experie nce, I concur with the findings and recommend admission to [facility], as this patient requires an IRF level of care. SIGNATURE PANEL: Clinical Liaison - [electronically] signed by Adan Solorzano on 11/19/2019 at 16:38 (PRINTER FLOOR COVERING ASSISTANT) Physician Reviewer - [electronically] signed by Dr. Laureano Waller M.D. on 11/19/2019 at 16:51 (PRINTER FLOOR COVERING ASSISTANT )
[2019-11-19 21:58] LABS: Urine Appearance CLOUDY; Urine Bilirubin NEGATIVE (NEG); Urine Blood 3+ (NEG); Urine Color YELLOW; Urine Glucose NEGATIVE (NEG); Urine Protein 1+ (NEG); Urine pH 6.5 (5.0-7.0)
[2019-11-19] MEDS ORDERED: ACETAMINOPHEN 325 MG TABLET PO PRN (22:02)
[2019-11-19] MEDS ORDERED: ACETAMINOPHEN 500 MG TAB PO PRN (22:06)
[2019-11-19 22:10] LABS: Urine Bacteria <20 /HPF (NONE SEEN); Urine Culture Reflex Order NOT NEEDED; Urine Mucus 1+ /HPF (NONE SEEN); Urine RBC TNTC /HPF (NONE SEEN)
[2019-11-19] MEDS ORDERED: CETIRIZINE HCL 5 MG TABLET PO PRN (22:39)
[2019-11-20] MEDS ORDERED: D50W 25 GM/50 ML SYRINGE/VIAL IV PRN (03:09)
[2019-11-20] MEDS ORDERED: GLUCAGON 1 MG/VIAL IM PRN (03:09)
[2019-11-20] MEDS: carvediloL 25 MG TAB PO SCH ×2 (05:25→16:53)
[2019-11-20 05:37] VITALS: BMI 55.5
[2019-11-20] MEDS: PANTOPRAZOLE 40MG TABLET PO SCH (06:16)
[2019-11-20 06:24] LABS: Basophils % 0.3 % (0-1.3); Hematocrit 34.5 % (39.6-49.0); Lymphocytes % 15.2 % (15.3-44.8); MPV 8.6 fL (7.6-11.3); RBC Red Blood Cell Count 4.07 M/uL (4.33-5.43)
[2019-11-20] MEDS: INSULIN -REGULAR HUMAN 50 UNIT/0.5 ML ML SQ SCH ×4 (07:30→20:20)
[2019-11-20 07:37] LABS: BUN Blood Urea Nitrogen 24 mg/dL (7-18); Bicarbonate 34 mmol/L (21-32); Glucose Level 110 mg/dL (74-106); Magnesium 2.1 mg/dL (1.8-2.4); Potassium 3.5 mmol/L (3.5-5.1); Sodium Level 141 mmol/L (136-145)
[2019-11-20 07:41] LABS: Prealbumin ND mg/dL (20-40)
[2019-11-20] MEDS: ASPIRIN EC 81 MG TAB PO SCH (08:10)
[2019-11-20] MEDS: FINASTERIDE 5 MG TAB PO SCH (08:11)
[2019-11-20] MEDS: predniSONE 20 MG TAB PO SCH (08:11)
[2019-11-20] MEDS: POTASSIUM CL SA 10 MEQ TAB PO SCH (08:12)
[2019-11-20] MEDS: lisinopriL 20 MG TAB PO SCH (08:12)
[2019-11-20] MEDS: CLOPIDOGREL 75 MG TABLET PO SCH (08:12)
[2019-11-20] MEDS: hydroCHLOROthiazide 25 MG TAB PO SCH (08:12)
[2019-11-20] MEDS: ATORVASTATIN 80 MG TAB PO SCH (20:17)
[2019-11-20] MEDS: TAMSULOSIN 0.4 MG SR CAP PO SCH (20:17)
[2019-11-21] MEDS: carvediloL 25 MG TAB PO SCH ×2 (05:16→17:18)
[2019-11-21] MEDS: PANTOPRAZOLE 40MG TABLET PO SCH (06:30)
[2019-11-21] MEDS: INSULIN -REGULAR HUMAN 50 UNIT/0.5 ML ML SQ SCH ×4 (07:30→21:00)
[2019-11-21] MEDS: lisinopriL 20 MG TAB PO SCH (07:43)
[2019-11-21] MEDS: ASPIRIN EC 81 MG TAB PO SCH (07:43)
[2019-11-21] MEDS: FINASTERIDE 5 MG TAB PO SCH (07:43)
[2019-11-21] MEDS: POTASSIUM CL SA 10 MEQ TAB PO SCH (07:44)
[2019-11-21] MEDS: predniSONE 20 MG TAB PO SCH (07:44)
[2019-11-21] MEDS: hydroCHLOROthiazide 25 MG TAB PO SCH (07:44)
[2019-11-21] MEDS: CLOPIDOGREL 75 MG TABLET PO SCH (07:44)
[2019-11-21] MEDS ORDERED: DOCUSATE NA/SENNA CONC 1 TAB PO PRN (09:19)
[2019-11-21] MEDS: TAMSULOSIN 0.4 MG SR CAP PO SCH (21:29)
[2019-11-21] MEDS: ATORVASTATIN 80 MG TAB PO SCH (21:29)
[2019-11-21] MEDS: JUVEN PACKET PO SCH (21:30)
[2019-11-22] MEDS: carvediloL 25 MG TAB PO SCH ×2 (05:17→17:23)
[2019-11-22] MEDS: PANTOPRAZOLE 40MG TABLET PO SCH (06:25)
[2019-11-22] MEDS: hydroCHLOROthiazide 25 MG TAB PO SCH (07:29)
[2019-11-22] MEDS: ASPIRIN EC 81 MG TAB PO SCH (07:29)
[2019-11-22] MEDS: FINASTERIDE 5 MG TAB PO SCH (07:29)
[2019-11-22] MEDS: POTASSIUM CL SA 10 MEQ TAB PO SCH (07:29)
[2019-11-22] MEDS: CLOPIDOGREL 75 MG TABLET PO SCH (07:29)
[2019-11-22] MEDS: lisinopriL 20 MG TAB PO SCH (07:29)
[2019-11-22] MEDS: INSULIN -REGULAR HUMAN 50 UNIT/0.5 ML ML SQ SCH ×4 (07:30→21:00)
[2019-11-22] MEDS: predniSONE 20 MG TAB PO SCH (07:30)
[2019-11-22] MEDS: JUVEN PACKET PO SCH ×2 (07:31→19:35)
--- NOTE | 2019-11-22 09:59 | FAST ---
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 Laureano Waller M.D. ADMISSION DIAGNOSIS: - Cardiac 09 - Cardiac Disorders () CHF EXACERBATION . EATING: EATING - STEP 1: Does the patient complete the activity by him/herself with no assistance (physical, verbal/nonverbal cueing, setup/clean-up)? No. EATING - STEP 2: Does the patient need only setup/clean-up assistance from one helper? No. EATING - STEP 3: Does the patient need only verbal/nonverbal cueing or touching/steadying/contact guard assistance fro m one helper? Yes. 1. [id number] ADMISSION PERFORMANCE: Supervision or touching assistance CODE: 04 ORAL HYGIENE: ORAL HYGIENE - STEP 1: Does the patient complete the activity by him/herself with no assistance (physical, verbal/nonverbal cueing, setup/clean-up)? No. ORAL HYGIENE - STEP 2: Does the patient need only setup/clean-up assistance from one helper? Yes. 1. [id number] ADMISSION PERFORMANCE: Setup or clean-up assistance CODE: 05 TOILETING HYGIENE: TOILETING HYGIENE - STEP 1: Does the patient complete the activity by him/herself with no assistance (physical, verbal/nonverbal cueing, setup/clean-up)? No. TOILETING HYGIENE - STEP 2: Does the patient need only setup/clean-up assistance from one helper? No. TOILETING HYGIENE - STEP 3: Does the patient need only verbal/nonverbal cueing or touching/steadying/contact guard assistance fro m one helper? Yes. 1. [id number] ADMISSION PERFORMANCE: Supervision or touching assistance CODE: 04 BATHING: Not assessed/no information CODE: - DRESSING - UPPER BODY: Not assessed/no information CODE: - DRESSING - LOWER BODY: Not assessed/no information CODE: - PUTTING ON/TAKING OFF FOOTWEAR: Not assessed/no information CODE: - ROLL LEFT AND RIGHT: ROLL LEFT AND RIGHT - STEP 1: Does the patient complete the activity by him/herself with no assistance (physical, verbal/nonverbal cueing, setup/clean-up)? No. ROLL LEFT AND RIGHT - STEP 2: Does the patient need only setup/clean-up assistance from one helper? No. ROLL LEFT AND RIGHT - STEP 3: Does the patient need only verbal/nonverbal cueing or touching/steadying/contact guard assistance fro m one helper? Yes. 1. [id number] ADMISSION PERFORMANCE: Supervision or touching assistance CODE: 04 SIT TO LYING: SIT TO LYING - STEP 1: Does the patient complete the activity by him/herself with no assistance (physical, verbal/nonverbal cueing, setup/clean-up)? No. SIT TO LYING - STEP 2: Does the patient need only setup/clean-up assistance from one helper? No. SIT TO LYING - STEP 3: Does the patient need only verbal/nonverbal cueing or touching/steadying/contact guard assistance fro m one helper? Yes. 1. [id number] ADMISSION PERFORMANCE: Supervision or touching assistance CODE: 04 LYING TO SITTING: LYING TO SITTING ON SIDE OF BED - STEP 1: Does the patient complete the activity by him/herself with no assistance (physical, verbal/nonverbal cueing, setup/clean-up)? No. LYING TO SITTING ON SIDE OF BED - STEP 2: Does the patient need only setup/clean-up assistance from one helper? No. LYING TO SITTING ON SIDE OF BED - STEP 3: Does the patient need only verbal/nonverbal cueing or touching/steadying/contact guard assistance fro m one helper? Yes. 1. [id number] ADMISSION PERFORMANCE: Supervision or touching assistance CODE: 04 SIT TO STAND: SIT TO STAND - STEP 1: Does the patient complete the activity by him/herself with no assistance (physical, verbal/nonverbal cueing, setup/clean-up)? No. SIT TO STAND - STEP 2: Does the patient need only setup/clean-up assistance from one helper? No. SIT TO STAND - STEP 3: Does the patient need only verbal/nonverbal cueing or touching/steadying/contact guard assistance fro m one helper? Yes. 1. [id number] ADMISSION PERFORMANCE: Supervision or touching assistance CODE: 04 TRANSFERS: BED, CHAIR: CHAIR/AAS-CN-GBUCY TRANSFER - STEP 1: Does the patient complete the activity by him/herself with no assistance (physical, verbal/nonverbal cueing, setup/clean-up)? No. CHAIR/[id number] TRANSFER - STEP 2: Does the patient need only setup/clean-up assistance from one helper? No. CHAIR/[id number] TRANSFER - STEP 3: Does the patient need only verbal/nonverbal cueing or touching/steadying/contact guard assistance fro m one helper? Yes. 1. [id number] ADMISSION PERFORMANCE: Supervision or touching assistance CODE: 04 TRANSFER TOILET: TOILET TRANSFER - STEP 1: Does the patient complete the activity by him/herself with no assistance (physical, verbal/nonverbal cueing, setup/clean-up)? No. TOILET TRANSFER - STEP 2: Does the patient need only setup/clean-up assistance from one helper? No. TOILET TRANSFER - STEP 3: Does the patient need only verbal/nonverbal cueing or touching/steadying/contact guard assistance fro m one helper? Yes. 1. [id number] ADMISSION PERFORMANCE: Supervision or touching assistance CODE: 04 TRANSFERS: CAR: Not assessed/no information CODE: - WALK 10 FEET: Not assessed/no information CODE: - 1 STEP (CURB): Not assessed/no information CODE: - PICKING UP OBJECT: Not assessed/no information CODE: - DOES THE PATIENT USE A WHEELCHAIR/SCOOTER? CODE: EXPR WHEEL 50 FEET WITH TWO TURNS: Not assessed/no information CODE: - INDICATE THE TYPE OF WHEELCHAIR/SCOOTER USED: CODE: EXPR WHEEL 150 FEET: Not assessed/no information CODE: - INDICATE THE TYPE OF WHEELCHAIR/SCOOTER USED: CODE: EXPR BLADDER AND BOWEL: H350. BLADDER CONTINENCE (3-DAY ASSESSMENT PERIOD): Always continent (no documented incontinence) CODE: 0 H400. BOWEL CONTINENCE (3-DAY ASSESSMENT PERIOD): Always continent CODE: 0 SIGNATURE PANEL: The following modified sections: 1. [id number] Admission Performance, 1. [id number] Admission Performance, 1. [id number] Admission Performance, 1. [id number] Admission Performance, 1. RT1042I Admission Performance, 1. BH2847H Admission Performance, 1. [id number] Admission Performance, 1. [id number] Admission Performance , 1. CW4425E Admission Performance, 1. [id number] Admission Performance, 1. [id number] Admission Performanc e, Code, H350. Bladder Continence (3-day assessment period), H400. Bowel Continence (3-day assessment period) were [electronically] signed by Steve Anguiano on FriNov 22 2019 09:58:14 GMT-0600 (Central Sta ndard Time)
--- NOTE | 2019-11-22 16:14 | FAST ---
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 Laureano Waller M.D. ADMISSION DIAGNOSIS: - Cardiac 09 - Cardiac Disorders () CHF EXACERBATION . EATING: Not assessed/no information CODE: - ORAL HYGIENE: ORAL HYGIENE - STEP 1: Does the patient complete the activity by him/herself with no assistance (physical, verbal/nonverbal cueing, setup/clean-up)? Yes. 1. ADMISSION PERFORMANCE: Independent CODE: 06 TOILETING HYGIENE: Not assessed/no information CODE: - BATHING: SHOWER/BATHE SELF - STEP 1: Does the patient complete the activity by him/herself with no assistance (physical, verbal/nonverbal cueing, setup/clean-up)? Yes. 1. ADMISSION PERFORMANCE: Independent CODE: 06 DRESSING - UPPER BODY: DRESSING - UPPER BODY - STEP 1: Does the patient complete the activity by him/herself with no assistance (physical, verbal/nonverbal cueing, setup/clean-up)? Yes. 1. ADMISSION PERFORMANCE: Independent CODE: 06 DRESSING - LOWER BODY: DRESSING - LOWER BODY - STEP 1: Does the patient complete the activity by him/herself with no assistance (physical, verbal/nonverbal cueing, setup/clean-up)? Yes. 1. ADMISSION PERFORMANCE: Independent CODE: 06 PUTTING ON/TAKING OFF FOOTWEAR: FOOTWEAR - STEP 1: Does the patient complete the activity by him/herself with no assistance (physical, verbal/nonverbal cueing, setup/clean-up)? Yes. 1. [id number] ADMISSION PERFORMANCE: Independent CODE: 06 DOES THE PATIENT USE A WHEELCHAIR/SCOOTER? CODE: EXPR INDICATE THE TYPE OF WHEELCHAIR/SCOOTER USED: CODE: EXPR INDICATE THE TYPE OF WHEELCHAIR/SCOOTER USED: CODE: EXPR BLADDER AND BOWEL: CODE: EXPR CODE: EXPR SIGNATURE PANEL: The following modified sections: 1. [id number] Admission Performance, 1. [id number] Admission Performance, 1. [id number] Admission Performance, 1. IR5600k Admission Performance, 1. IP1676h Admission Performance were [electronically] signed by JASON Krishna on FriNov 22 2019 16:13:24 GMT-0600 (Central Standard Time)
--- NOTE | 2019-11-22 17:45 | R.HP ---
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 board/care, assisted living, custodial, transitional living) PRE-HOSPITAL LIVING WITH Alone ENCOUNTER PHYSICIAN: Dr. Laureano Waller M.D. 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 is a 74 yo Right-handed black male. On 11/17/2019 he was admitted to [facility] with diagnosis CHF EXACERBATION . His impairment category is Cardiac 09 - Cardiac Disorders (09), extreme obesity. Pre-morbidly, Pt. was independent/mod-I in Locomotion, Safety Awareness, Social Cognition, Transfers Control, Balance, Sphincter Control, Self-Care, Endurance, and Communication; and he had good Locomot ion, Safety Awareness, Balance, Social Cognition, Transfers Control, Sphincter Control, Communication , Endurance, and Self-Care. Currently, he has deficits of locomotion, transfers control, endurance, and self care . Pt. is now referred to [facility] for acute in-patient rehabilitation in order to maximize patient's functional independence in activities of daily living, strength, ROM, and mobi lity. Patient has realistic goal of being discharged at assistance level 6-[place] to reside at Home with Fam braden/Relatives. Melyssa Obando is a 77 year old male that lives alone in a single divine house. Modified independent with all ADLs and self care. On 11/17/2019, patient fell and his work up revealed bilateral arthropathy as well as dyspnea and has been short of breath for the last few days and was admitted to [facility] and treated. He is now medically stable but in need of 24-hour nursing, doctor supervision and oversite while receiving acti ve and ongoing intensive (PT, reasonably expected to participate in 3hours of therapy a day/15 hours per week and receive care with an intensive interdisciplinary approach. 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 SLEEP APNEA PAST SURGICAL HISTORY: N/A FAMILY HISTORY: Family history is not contributory. SOCIAL HISTORY: - Home Living Alone REVIEW OF SYSTEMS: - Gen No Chills Fatigue No Fever - Eyes No Double Vision No itchiness - ENMT No Difficulty Swallowing - CVS No Chest Discomfort Fatigue No Weight Gain - Resp No Cough Shortness of Breath - GI Continent No Abdominal Pain No Constipation No Diarrhea - Continent No Kidney Pain No Painful Urination No Urinary Urgency - MSK Joint Pain Muscle Cramps Stiffness - Skin No Itching No Rash No Suspicious Lesions - Neuro No Coordination Difficulty No Difficulty with Concentration No Memory Loss No Seizures No Weakness - Psych No Anxiety No Depression No HIV Exposure No Persistent Infections No Seasonal Allergies - Endo No Cold/Heat Intolerance No Excessive Hunger No Excessive Thirst No Excessive Urination PHYSICAL EXAM - Gen Alert and awake Lying in bed No apparent distress Oriented to: person, time, and place - Skin No skin breakdown. No abnormalities - Eyes No abnormalities - ENMT No abnormalities - Neck No abnormalities - CVS RRR - Chest No abnormalities - Resp Clear to auscultation - Abd Obese, soft, nontender - GI Soft Deferred - No abnormalities - Ext Mild bilateral lower extremity edema. - MSK 4/5 weakness in both lower extremities. - Neuro 4/5 strength right upper and lower extremities. - Psych No abnormalities VITAL SIGNS Temperature: 97.1 F SBP/DBP: 160/83 Pulse: 88 Resp: 18 NURSING: - Shower allowing shower ACTIVITIES OOB only with supervision QI SCORES: - Self-Care A. Eating 05-Setup or clean-up assistance B. Oral hygiene 05-Setup or clean-up assistance C. Toileting hygiene 04-Supervision or touching assistance E. Shower/bathe self 03-Partial/moderate assistance F. Upper body dressing 03-Partial/moderate assistance G. Lower body dressing 02-Substantial/maximal assistance H. Putting on/taking off footwear 02-Substantial/maximal assistance - Mobility A. Roll left and right 03-Partial/moderate assistance B. Sit to lying 03-Partial/moderate assistance C. Lying to sitting on side of bed 03-Partial/moderate assistance D. Sit to stand 03-Partial/moderate assistance E. Chair/nyl-ie-obegm transfer 03-Partial/moderate assistance F. Toilet transfer 03-Partial/moderate assistance G. Car transfer 88-Not attempted due to medical condition or safety concerns I. Walk 10 feet 04-Supervision or touching assistance J. Walk 50 feet with two turns 88-Not attempted due to medical condition or safety concerns K. Walk 150 feet 04-Supervision or touching assistance L. Walking 10 feet on uneven surfaces 88-Not attempted due to medical condition or safety concerns M. 1 step (curb) 88-Not attempted due to medical condition or safety concerns N. 4 steps 88-Not attempted due to medical condition or safety concerns O. 12 steps 88-Not attempted due to medical condition or safety concerns P. Picking up object 88-Not attempted due to medical condition or safety concerns R. Wheel 50 feet with two turns 88-Not attempted due to medical condition or safety concerns S. Wheel 150 feet 88-Not attempted due to medical condition or safety concerns - Bladder and Bowel Bladder continence 0-Always continent Bowel continence 0-Always continent - Endurance Fair - Balance Fair - Safety Awareness Fair CURRENT FUNC. DEFICITS: Self-Care, Mobility, Endurance, Balance, and Safety Awareness MEDICATIONS: - Other See attached MAR (Medication Administration Record) ASSESSMENT: Pt. is a 74 yo Right-handed black male.On 11/17/2019 he was admitted to [facility] with diagnosis CHF EXACERBATION .His impairment category is Cardiac 09 - Cardiac Disorders (09). Pre-morbidly, Pt. was independent/mod-I in Locomotion, Safety Awareness, Social Cognition, Transfers Control, Balance, Sphincter Control, Self-Care, Endurance, and Communication; and he had good Locomot ion, Safety Awareness, Balance, Social Cognition, Transfers Control, Sphincter Control, Communication , Endurance, and Self-Care.Currently, he has deficits of locomotion, transfers control, endurance, an d self care .Pt. is now referred to [facility] for acute in-patient rehabilita tion in order to maximize patient's functional independence in activities of daily living, strength, ROM, and mobility.- Rehab Goal Patient has realistic goal of being discharged at assistance level 6-[place] to reside at Home with Fam braden/Relatives. Melyssa Obando is a 77 year old male that lives alone in a single divine house. Modified independent with all ADLs and self care. On 11/17/2019, patient fell and his work up revealed bilateral arthropathy as well as dyspnea and has been short of breath for the last few days and was admitted to [facility] and treated. He is now medically stable but in need of 24-hour nursing, doctor supervision and oversite while receiving acti ve and ongoing intensive (PT, reasonably expected to participate in 3hours of therapy a day/15 hours per week and receive care with an intensive interdisciplinary approach.REHAB PLAN: - Physical Therapy Gait dysfunction - to improve, our physical therapists will perform initial evaluation of pt's status upon admission and devise an individualized program for Gait Training, and Wheel Chair mobility Inability to transfer - to improve, our physical therapists will perform initial evaluation of pt's s tatus upon admission and devise an individualized program for Bed mobility Need for home safety evaluation - to improve, our physical therapists will perform initial evaluation of pt's status upon admission and devise an individualized program for Home Evaluation Need in caregiver upon discharge - to improve, our physical therapists will perform initial evaluatio n of pt's status upon admission and devise an individualized program for Caregiver Training Edema - to improve, our physical therapists will perform initial evaluation of pt's status upon admi ssion and devise an individualized program for Elevation Training, and Lymphedema Therapy New precaution - to improve, our physical therapists will perform initial evaluation of pt's status u mayda admission and devise an individualized program for Patient precaution education Poor endurance - to improve, our physical therapists will perform initial evaluation of pt's status u mayda admission and devise an individualized program for Endurance Training Weakness - to improve, our physical therapists will perform initial evaluation of pt's status upon ad mission and devise an individualized program for Aquatic Therapy, Neuromuscular Reeducation, and Stre ngthening Achieving independence - to improve, our physical therapists will perform initial evaluation of pt's status upon admission and devise an individualized program for Community Reintegration Activities - Occupational Therapy Need for care administrative tech - to improve, our occupation therapists will perform initial evaluation of pt's s tatus upon admission and devise an individualized program for Caregiver Training Weakness - to improve, our occupation therapists will perform initial evaluation of pt's status upon admission and devise an individualized program for Aquatic Therapy, Balance, Endurance, UE ROM, and U E strengthening MEDICAL PLAN: - Diet Type Start Regular - Diet - Liquid Texture Start Regular - Tube Feed Start N/A - Other See attached MAR (Medication Administration Record) - Diet - Solid Texture Regular - Shower shower DISCHARGE PLAN: - Estimated Length of Stay (days) 10. - Consensus on plan Discharge plan has been discussed with primary caregiver. Patient/Family is in agreement with the evelio n. Primary caregiver is in agreement with the plan. - Patient/Family Goals Return home with assistance. - Planned Living Setting Upon Discharge Home, to live with Family/Relatives. Transitional Living. SIGNATURE PANEL: (RED LEADER)
--- NOTE | 2019-11-22 17:47 | PAPE ---
PATIENT: 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 Laureano Waller M.D. ADMISSION DIAGNOSIS: CHF EXACERBATION ONSET DATE 11/17/2019 SECONDARY/COMORBID DIAGNOSES TIERED: - N/A SLEEP APNEA HTN HLD OBESITY Chronic Lymphedema DM-BORDERLINE NOT ON MEDICATION CHF POST-ADMISSION FUNCTIONAL/MEDICAL STATUS: - Bladder Same accident frequency: Ind - No accidents in the past 7 days - Bowel Same accident frequency: Ind - No accidents in the past 7 days - Walking Same score based on distance walked: 0(N/A) Same score based on distance walked: 3(>=150ft) - Wheelchair Same score based on distance traveled: 0(N/A) STATUS CHANGE EVALUATION: No change in Functional or Medical Status is identified compared with Pre-Admission screening. PATIENT NEEDS CLOSE MEDICAL SUPERVISION BY A REHABILITATION PHYSICIAN FOR: Coordination of Treatment Team Medical and Co-Morbidity Management PATIENT REQUIRES 24X7 REHAB NURSING FOR MEDICAL AND FUNCTIONAL MGT. OF THE FOLLOWING DEFICITS: Disease Management Medication Management Patient/Family Education Providing Safe Environment PATIENT REQUIRES INTENSIVE, COORDINATED INTERDISCIPLINARY APPROACH TO REHAB: Arranging Home Equipment/Services Discharge Planning Family Intervention/Training Igniter Assembler/Case Management LIST OF IDENTIFIED AND POTENTIAL PROBLEMS: Alteration in leisure activities Bladder, Incontinence Bowel, Incontinence Fluid volume overload related to Congestive Heart Failure (CHF) Infection, Actual or Potential Mobility Impaired Pain, Alteration in Comfort Self Care Deficit Skin Integrity, Actual or Potential Urinary Tract Infection (UTI), Actual or Potential RISK FOR COMPLICATIONS - Sleep Apnea Anoxia. BI. CVA. Fatigue. AL. INTERVENTIONS - Sleep Apnea 02 sats. Oxygen. Respiratory management. PATIENT COULD BE AT RISK FOR COMPLICATIONS FROM ADVERSE MEDICAL CONDITIONS DUE TO HIS/HER COMORBIDITI ES AND THE RIGORS OF THE INTENSIVE REHABILLITATION PROGRAM. METHODS OR INTERVENTIONS TO AVOID COMPLIC ATIONS INCLUDE: - Infection Clinical staff to assess and manage the signs and symptoms of infection including fever, redness, war mth, etc. - Urinary Tract Infection - Falls Patient will be evaluated for Fall Precautions and will be placed on Fall Precautions as indicated pe r protocol. - Skin Breakdown Nursing will assess skin daily using assessment tool and will place on Skin Breakdown Precautions as indicated per protocol. - Pain Clinical staff may employ non-medication methods such as massage, distraction, decrease stimulus, etc . as needed. Clinical staff will assess patient's pain level every shift per protocol to assess and e nsure pain management effectiveness. Medications will be given and the pain level re-assessed. PRELIMINARY PLAN OF CARE: - Physical Therapy Patient needs Physical Therapy for a daily minimum of 1.5 hours at least 5 out of 7 days, to improve: Mobility, Strengthening, Transfers, Stretching, ROM, Endurance, Ability to manage stairs, Gait, and Balance. - Rehabilitation Nursing Patient requires 24x7 Rehabilitation Nursing for: Pain Issues, Identifying and preventing risk factor s, Monitoring and reporting current medical conditions, Assisting with ambulation and transfer, Virgil ting with all ADL-s, Teaching patients about disease process and medications, Family teaching, Provid ing safe environment, Bowel and Bladder Issues, Skin Integrity, and Medication Management. Patient needs Igniter Assembler and/or Case Management for: Discharge Planning, Arranging Home Equipmen t or Services, and Family Interventions. - Dietary and Nutrition Services Patient needs Dietary and Nutrition Services for: Adequate Nutrition, Nutritional Supplements, and Nu tritional Education. - Occupational Therapy Patient needs Occupational Therapy for a daily minimum of 1.5 hours at least 5 out of 7 days, to impr ove Activities of Daily Living, including: Eating, Grooming, Bathing, Dressing, Toileting, Toilet Tra nsfers, Community Reintegration, Higher functional activities, Adaptive Equipment, Splinting, Househo ld Tasks, and Other activities as determined. QI SCORES: - Self-Care A. Eating 05-Setup or clean-up assistance B. Oral hygiene 05-Setup or clean-up assistance C. Toileting hygiene 04-Supervision or touching assistance E. Shower/bathe self 03-Partial/moderate assistance F. Upper body dressing 03-Partial/moderate assistance G. Lower body dressing 02-Substantial/maximal assistance H. Putting on/taking off footwear 02-Substantial/maximal assistance - Mobility A. Roll left and right 03-Partial/moderate assistance B. Sit to lying 03-Partial/moderate assistance C. Lying to sitting on side of bed 03-Partial/moderate assistance D. Sit to stand 03-Partial/moderate assistance E. Chair/ryh-dx-qrbbg transfer 03-Partial/moderate assistance F. Toilet transfer 03-Partial/moderate assistance G. Car transfer 88-Not attempted due to medical condition or safety concerns I. Walk 10 feet 04-Supervision or touching assistance J. Walk 50 feet with two turns 88-Not attempted due to medical condition or safety concerns K. Walk 150 feet 04-Supervision or touching assistance L. Walking 10 feet on uneven surfaces 88-Not attempted due to medical condition or safety concerns M. 1 step (curb) 88-Not attempted due to medical condition or safety concerns N. 4 steps 88-Not attempted due to medical condition or safety concerns O. 12 steps 88-Not attempted due to medical condition or safety concerns P. Picking up object 88-Not attempted due to medical condition or safety concerns R. Wheel 50 feet with two turns 88-Not attempted due to medical condition or safety concerns S. Wheel 150 feet 88-Not attempted due to medical condition or safety concerns - Bladder and Bowel Bladder continence 0-Always continent Bowel continence 0-Always continent - Endurance Fair - Balance Fair - Safety Awareness Fair POTENTIAL FUNCTIONAL GOALS FOR PATIENT TO ACHIEVE BY DISCHARGE: - Safety Precaution Patient will remain free from falls or injury at time of discharge. - Bed Mobility Patient will perform bed mobility at 4-Hipolito level of assistance. - Transfers Patient will complete transfers from bed to chair at 4-Hipolito level of assistance. - Mobility Patient will ambulate 150 ft with 4-Hipolito level of assistance with RW. PATIENT REHAB POTENTIAL Saroj OBANDO is able and expected to receive 3 hours of individualized therapy daily on at least 5 of e very 7 days Saroj HERNANDEZs prognosis for significant practical improvement within a reasonable period of time appea rs Good Expected level of measurable improvement will be of a practical value to Saroj OBANDO's functional capa city or adaptations to impairments Has a viable Discharge Plan Medically appropriate; condition is sufficiently stable to participate in intensive rehab program DISCHARGE PLAN: - Estimated Length of Stay (days) 10. - Consensus on plan Discharge plan has been discussed with primary caregiver. Patient/Family is in agreement with the evelio n. Primary caregiver is in agreement with the plan. - Patient/Family Goals Return home with assistance. - Planned Living Setting Upon Discharge Home, to live with Family/Relatives. Transitional Living. CONCLUSION ON REHABILITATION NECESSITY: I have evaluated patient's pre-admission functional status and, comparing it to the patient's post-ad mission functional status now, I conclude that the pre-admission assessment was accurate. Patient's c ondition on admission supports the medical necessity of admission to IRF. It is safe to proceed with patient's therapy program. 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
--- NOTE | 2019-11-22 18:14 | R.PN ---
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 SUBJECTIVE: Pt denied any Shortness of Breath. Pt denied any depression. Ambulated 500' with a rolling walker and standby assistance. Self-propelled wheelchair 250' with joaquin dby assistance. VITAL SIGNS Temperature: 97.1 F SBP/DBP: 160/83 Pulse: 88 Resp: 18 MEDICATION ALLERGIES: No Known Drug Allergies (NKDA) ENVIRONMENTAL ALLERGIES: None Known - Substance Allergies None Known - Other Allergies None Known NURSING: - Shower allowing shower ACTIVITIES OOB only with supervision THERAPIES: - Dietary and Nutrition Adequate Nutrition. Nutritional Education. Nutritional Supplements. PHYSICAL EXAM - Gen Alert and awake Lying in bed No apparent distress Oriented to: person, time, and place - Skin No skin breakdown. No abnormalities - Eyes No abnormalities - ENMT No abnormalities - Neck No abnormalities - CVS RRR - Chest No abnormalities - Resp Clear to auscultation - Abd Obese, soft, nontender - GI Soft Deferred - No abnormalities - Ext Mild bilateral lower extremity edema. - MSK 4/5 weakness in both lower extremities. - Neuro 4/5 strength right upper and lower extremities. - Psych No abnormalities ASSESSMENT: Pt. is a 74 yo Right-handed black male.On 11/17/2019 he was admitted to [facility] with diagnosis CHF EXACERBATION .His impairment category is Cardiac 09 - Cardiac Disorders (09), extreme obesity.His impairment category is Cardiac 09 - Cardiac Disorders (09).Pre-morbidly, Pt. wa s independent/mod-I in Locomotion, Safety Awareness, Social Cognition, Transfers Control, Balance, Sp hincter Control, Self-Care, Endurance, and Communication; and he had good Locomotion, Safety Awarenes s, Balance, Social Cognition, Transfers Control, Sphincter Control, Communication, Endurance, and Mirian f-Care.Currently, he has deficits of locomotion, transfers control, endurance, and self care .Pt. is now referred to [facility] for acute in-patient rehabilitation in order to max imize patient's functional independence in activities of daily living, strength, ROM, and mobility.- Rehab Goal Patient has realistic goal of being discharged at assistance level 6-[place] to reside at Home with Fam braden/Relatives. MDM/PLAN: - Physical Therapy Gait dysfunction - to improve, our physical therapists will perform initial evaluation of pt's statu s upon admission and devise an individualized program for Gait Training, and Wheel Chair mobility Inability to transfer - to improve, our physical therapists will perform initial evaluation of pt's status upon admission and devise an individualized program for Bed mobility Need for home safety evaluation - to improve, our physical therapists will perform initial evaluatio n of pt's status upon admission and devise an individualized program for Home Evaluation Need in caregiver upon discharge - to improve, our physical therapists will perform initial evaluati on of pt's status upon admission and devise an individualized program for Caregiver Training Edema - to improve, our physical therapists will perform initial evaluation of pt's status upon admis niru and devise an individualized program for Elevation Training, and Lymphedema Therapy New precaution - to improve, our physical therapists will perform initial evaluation of pt's status upon admission and devise an individualized program for Patient precaution education Poor endurance - to improve, our physical therapists will perform initial evaluation of pt's status upon admission and devise an individualized program for Endurance Training Weakness - to improve, our physical therapists will perform initial evaluation of pt's status upon a dmission and devise an individualized program for Aquatic Therapy, Neuromuscular Reeducation, and Str engthening Achieving independence - to improve, our physical therapists will perform initial evaluation of pt's status upon admission and devise an individualized program for Community Reintegration Activities - Occupational Therapy Need for hourly caregiver - to improve, our occupation therapists will perform initial evaluation of pt's status upon admission and devise an individualized program for Caregiver Training Weakness - to improve, our occupation therapists will perform initial evaluation of pt's status upon admission and devise an individualized program for Aquatic Therapy, Balance, Endurance, UE ROM, and UE strengthening - Other See attached MAR (Medication Administration Record) - Diet Type Continue Regular - Diet - Liquid Texture Continue Regular - Tube Feed Continue N/A - Diet - Solid Texture Continue Regular - Shower allowing shower FUNCTIONAL STATUS: UPDATED AT WEEKLY TEAM CONFERENCE - Bladder Same accident frequency: 7-Ind - No accidents in the past 7 days - Bowel Same accident frequency: 7-Ind - No accidents in the past 7 days - Walking Same score based on distance walked: 0(N/A) Same score based on distance walked: 3(>=150ft) - Wheelchair Same score based on distance traveled: 0(N/A) FUNCTIONAL STATUS: - Self-Care A. Eating Ind B. Grooming Ind C. Bathing sup D. Dressing - Upper sup E. Dressing - Lower modA F. Toileting Hipolito - Sphincter Control G. Bladder control sup H. Bowel control sup - Transfers Control I. Bed/Chair/Wheelchair modA J. Toilet modA K. Tub/Shower modA - Locomotion L. Walk/Wheelchair (B) sup M. Stairs ADNO - Communication N. Comprehension (B) Ind O. Expression (B) Ind - Social Cognition P. Social Interaction Ind Q. Problem Solving Ind R. Memory Ind - Endurance Good - Balance Good - Safety Awareness Good QI SCORES: - Self-Care A. Eating 05-Setup or clean-up assistance B. Oral hygiene 05-Setup or clean-up assistance C. Toileting hygiene 04-Supervision or touching assistance E. Shower/bathe self 03-Partial/moderate assistance F. Upper body dressing 03-Partial/moderate assistance G. Lower body dressing 02-Substantial/maximal assistance H. Putting on/taking off footwear 02-Substantial/maximal assistance - Mobility A. Roll left and right 03-Partial/moderate assistance B. Sit to lying 03-Partial/moderate assistance C. Lying to sitting on side of bed 03-Partial/moderate assistance D. Sit to stand 03-Partial/moderate assistance E. Chair/nbm-yt-[id number] transfer 03-Partial/moderate assistance F. Toilet transfer 03-Partial/moderate assistance G. Car transfer 88-Not attempted due to medical condition or safety concerns I. Walk 10 feet 04-Supervision or touching assistance J. Walk 50 feet with two turns 88-Not attempted due to medical condition or safety concerns K. Walk 150 feet 04-Supervision or touching assistance L. Walking 10 feet on uneven surfaces 88-Not attempted due to medical condition or safety concerns M. 1 step (curb) 88-Not attempted due to medical condition or safety concerns N. 4 steps 88-Not attempted due to medical condition or safety concerns O. 12 steps 88-Not attempted due to medical condition or safety concerns P. Picking up object 88-Not attempted due to medical condition or safety concerns R. Wheel 50 feet with two turns 88-Not attempted due to medical condition or safety concerns S. Wheel 150 feet 88-Not attempted due to medical condition or safety concerns - Bladder and Bowel Bladder continence 0-Always continent Bowel continence 0-Always continent - Endurance Fair - Balance Fair - Safety Awareness Fair CURRENT [facility]. 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
[2019-11-22] MEDS: CRANBERRY FRUIT EXTRACT 200 MG CAP PO SCH (19:31)
[2019-11-22] MEDS: TAMSULOSIN 0.4 MG SR CAP PO SCH (19:31)
[2019-11-22] MEDS: ENOXAPARIN 40 MG/0.4 ML SQ SCH (19:31)
[2019-11-22] MEDS: ATORVASTATIN 80 MG TAB PO SCH (19:31)
[2019-11-23] MEDS: carvediloL 25 MG TAB PO SCH ×2 (05:03→17:00)
[2019-11-23] MEDS: INSULIN -REGULAR HUMAN 50 UNIT/0.5 ML ML SQ SCH ×4 (07:30→21:00)
[2019-11-23] MEDS: PANTOPRAZOLE 40MG TABLET PO SCH (07:31)
[2019-11-23] MEDS: lisinopriL 20 MG TAB PO SCH (08:00)
[2019-11-23] MEDS: JUVEN PACKET PO SCH ×2 (08:00→18:57)
[2019-11-23] MEDS ORDERED: ENOXAPARIN 30 MG/0.3 ML SQ SCH (08:00)
[2019-11-23] MEDS: hydroCHLOROthiazide 25 MG TAB PO SCH (09:00)
[2019-11-23] MEDS: CLOPIDOGREL 75 MG TABLET PO SCH (09:00)
[2019-11-23] MEDS: FINASTERIDE 5 MG TAB PO SCH (09:00)
[2019-11-23] MEDS: predniSONE 20 MG TAB PO SCH (09:00)
[2019-11-23] MEDS: POTASSIUM CL SA 10 MEQ TAB PO SCH (09:00)
[2019-11-23] MEDS: ASPIRIN EC 81 MG TAB PO SCH (09:00)
[2019-11-23] MEDS: CRANBERRY FRUIT EXTRACT 200 MG CAP PO SCH ×2 (09:00→18:56)
[2019-11-23] MEDS: ENOXAPARIN 40 MG/0.4 ML SQ SCH (17:00)
[2019-11-23] MEDS ORDERED: ENOXAPARIN 40 MG/0.4 ML SQ SCH (18:00)
[2019-11-23] MEDS: TAMSULOSIN 0.4 MG SR CAP PO SCH (18:56)
[2019-11-23] MEDS: ATORVASTATIN 80 MG TAB PO SCH (18:56)
[2019-11-24] MEDS: carvediloL 25 MG TAB PO SCH ×2 (05:08→17:31)
[2019-11-24] MEDS: PANTOPRAZOLE 40MG TABLET PO SCH (07:12)
[2019-11-24] MEDS: INSULIN -REGULAR HUMAN 50 UNIT/0.5 ML ML SQ SCH ×4 (07:26→20:54)
[2019-11-24] MEDS: CRANBERRY FRUIT EXTRACT 200 MG CAP PO SCH ×2 (08:10→20:54)
[2019-11-24] MEDS: FINASTERIDE 5 MG TAB PO SCH (08:10)
[2019-11-24] MEDS: lisinopriL 20 MG TAB PO SCH (08:10)
[2019-11-24] MEDS: CLOPIDOGREL 75 MG TABLET PO SCH (08:10)
[2019-11-24] MEDS: ASPIRIN EC 81 MG TAB PO SCH (08:10)
[2019-11-24] MEDS: predniSONE 20 MG TAB PO SCH (08:10)
[2019-11-24] MEDS: POTASSIUM CL SA 10 MEQ TAB PO SCH (08:11)
[2019-11-24] MEDS: hydroCHLOROthiazide 25 MG TAB PO SCH (08:11)
[2019-11-24] MEDS: JUVEN PACKET PO SCH ×2 (08:15→20:54)
[2019-11-24] MEDS: ENOXAPARIN 40 MG/0.4 ML SQ SCH (16:37)
[2019-11-24] MEDS: ATORVASTATIN 80 MG TAB PO SCH (20:54)
[2019-11-24] MEDS: TAMSULOSIN 0.4 MG SR CAP PO SCH (20:54)
[2019-11-25] MEDS: carvediloL 25 MG TAB PO SCH ×2 (05:16→17:08)
[2019-11-25 06:24] LABS: Absolute Lymphocytes (CBC) 1.4 K/uL (0.7-4.9); Basophils % 0.6 % (0-1.3); Hematocrit 36.6 % (39.6-49.0); Lymphocytes % 16.4 % (15.3-44.8); MPV 8.9 fL (7.6-11.3); RBC Red Blood Cell Count 4.36 M/uL (4.33-5.43)
[2019-11-25] MEDS: PANTOPRAZOLE 40MG TABLET PO SCH (06:32)
[2019-11-25 06:48] LABS: Albumin 3.2 g/dL (3.4-5.0); Magnesium 2.1 mg/dL (1.8-2.4); Prealbumin 14.9 mg/dL (20-40)
[2019-11-25] MEDS: INSULIN -REGULAR HUMAN 50 UNIT/0.5 ML ML SQ SCH ×4 (07:30→20:26)
[2019-11-25] MEDS: hydroCHLOROthiazide 25 MG TAB PO SCH (08:03)
[2019-11-25] MEDS: lisinopriL 20 MG TAB PO SCH (08:03)
[2019-11-25] MEDS: ASPIRIN EC 81 MG TAB PO SCH (08:03)
[2019-11-25] MEDS: CRANBERRY FRUIT EXTRACT 200 MG CAP PO SCH ×2 (08:03→20:23)
[2019-11-25] MEDS: CLOPIDOGREL 75 MG TABLET PO SCH (08:03)
[2019-11-25] MEDS: FINASTERIDE 5 MG TAB PO SCH (08:03)
[2019-11-25] MEDS: predniSONE 20 MG TAB PO SCH (08:03)
[2019-11-25] MEDS: JUVEN PACKET PO SCH ×2 (08:04→20:23)
[2019-11-25] MEDS: POTASSIUM CL SA 10 MEQ TAB PO SCH (08:04)
--- NOTE | 2019-11-25 16:40 | FAST ---
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 Laureano Waller M.D. ADMISSION DIAGNOSIS: - Cardiac 09 - Cardiac Disorders () CHF EXACERBATION . EATING: EATING - STEP 1: Does the patient complete the activity by him/herself with no assistance (physical, verbal/nonverbal cueing, setup/clean-up)? No. EATING - STEP 2: Does the patient need only setup/clean-up assistance from one helper? Yes. 1. [id number] ADMISSION PERFORMANCE: Setup or clean-up assistance CODE: 05 ORAL HYGIENE: ORAL HYGIENE - STEP 1: Does the patient complete the activity by him/herself with no assistance (physical, verbal/nonverbal cueing, setup/clean-up)? No. ORAL HYGIENE - STEP 2: Does the patient need only setup/clean-up assistance from one helper? Yes. 1. [id number] ADMISSION PERFORMANCE: Setup or clean-up assistance CODE: 05 TOILETING HYGIENE: TOILETING HYGIENE - STEP 1: Does the patient complete the activity by him/herself with no assistance (physical, verbal/nonverbal cueing, setup/clean-up)? No. TOILETING HYGIENE - STEP 2: Does the patient need only setup/clean-up assistance from one helper? Yes. 1. [id number] ADMISSION PERFORMANCE: Setup or clean-up assistance CODE: 05 BATHING: Not assessed/no information CODE: - DRESSING - UPPER BODY: DRESSING - UPPER BODY - STEP 1: Does the patient complete the activity by him/herself with no assistance (physical, verbal/nonverbal cueing, setup/clean-up)? No. DRESSING - UPPER BODY - STEP 2: Does the patient need only setup/clean-up assistance from one helper? Yes. 1. [id number] ADMISSION PERFORMANCE: Setup or clean-up assistance CODE: 05 DRESSING - LOWER BODY: DRESSING - LOWER BODY - STEP 1: Does the patient complete the activity by him/herself with no assistance (physical, verbal/nonverbal cueing, setup/clean-up)? No. DRESSING - LOWER BODY - STEP 2: Does the patient need only setup/clean-up assistance from one helper? Yes. 1. [id number] ADMISSION PERFORMANCE: Setup or clean-up assistance CODE: 05 PUTTING ON/TAKING OFF FOOTWEAR: FOOTWEAR - STEP 1: Does the patient complete the activity by him/herself with no assistance (physical, verbal/nonverbal cueing, setup/clean-up)? Yes. 1. [id number] ADMISSION PERFORMANCE: Independent CODE: 06 ROLL LEFT AND RIGHT: ROLL LEFT AND RIGHT - STEP 1: Does the patient complete the activity by him/herself with no assistance (physical, verbal/nonverbal cueing, setup/clean-up)? Yes. 1. [id number] ADMISSION PERFORMANCE: Independent CODE: 06 SIT TO LYING: SIT TO LYING - STEP 1: Does the patient complete the activity by him/herself with no assistance (physical, verbal/nonverbal cueing, setup/clean-up)? Yes. 1. [id number] ADMISSION PERFORMANCE: Independent CODE: 06 LYING TO SITTING: LYING TO SITTING ON SIDE OF BED - STEP 1: Does the patient complete the activity by him/herself with no assistance (physical, verbal/nonverbal cueing, setup/clean-up)? Yes. 1. [id number] ADMISSION PERFORMANCE: Independent CODE: 06 SIT TO STAND: SIT TO STAND - STEP 1: Does the patient complete the activity by him/herself with no assistance (physical, verbal/nonverbal cueing, setup/clean-up)? Yes. 1. [id number] ADMISSION PERFORMANCE: Independent CODE: 06 TRANSFERS: BED, CHAIR: CHAIR/[id number] TRANSFER - STEP 1: Does the patient complete the activity by him/herself with no assistance (physical, verbal/nonverbal cueing, setup/clean-up)? Yes. 1. [id number] ADMISSION PERFORMANCE: Independent CODE: 06 TRANSFER TOILET: TOILET TRANSFER - STEP 1: Does the patient complete the activity by him/herself with no assistance (physical, verbal/nonverbal cueing, setup/clean-up)? Yes. 1. [id number] ADMISSION PERFORMANCE: Independent CODE: 06 TRANSFERS: CAR: Not assessed/no information CODE: - WALK 10 FEET: Not assessed/no information CODE: - 1 STEP (CURB): Not assessed/no information CODE: - PICKING UP OBJECT: Not assessed/no information CODE: - DOES THE PATIENT USE A WHEELCHAIR/SCOOTER? Q1. DOES THE PATIENT USE A WHEELCHAIR/SCOOTER?: Yes CODE: 1 WHEEL 50 FEET WITH TWO TURNS: WHEEL 50 FEET WITH TWO TURNS - STEP 1: Does the patient complete the activity by him/herself with no assistance (physical, verbal/nonverbal cueing, setup/clean-up)? Yes. 1. [id number] ADMISSION PERFORMANCE: Independent CODE: 06 INDICATE THE TYPE OF WHEELCHAIR/SCOOTER USED: RR1. INDICATE THE TYPE OF WHEELCHAIR/SCOOTER USED.: Manual CODE: 1 WHEEL 150 FEET: WHEEL 150 FEET - STEP 1: Does the patient complete the activity by him/herself with no assistance (physical, verbal/nonverbal cueing, setup/clean-up)? Yes. 1. [id number] ADMISSION PERFORMANCE: Independent CODE: 06 INDICATE THE TYPE OF WHEELCHAIR/SCOOTER USED: SS1. INDICATE THE TYPE OF WHEELCHAIR/SCOOTER USED.: Manual CODE: 1 BLADDER AND BOWEL: H350. BLADDER CONTINENCE (3-DAY ASSESSMENT PERIOD): Always continent (no documented incontinence) CODE: 0 H400. BOWEL CONTINENCE (3-DAY ASSESSMENT PERIOD): Always continent CODE: 0 SIGNATURE PANEL: The following modified sections: 1. [id number] Admission Performance, 1. [id number] Admission Performance, 1. [id number] Admission Performance, 1. [id number] Admission Performance, 1. [id number] Admission Performance, 1. [id number] Admission Performance, 1. [id number] Admission Performance, 1. [id number] Admission Performance , 1. [id number] Admission Performance, 1. [id number] Admission Performance, 1. [id number] Admission Performanc e, 1. [id number] Admission Performance, Q1. Does the patient use a wheelchair/scooter?, 1. [id number] Admis niru Performance, RR1. Indicate the type of wheelchair/scooter used., 1. [id number] Admission Performanc e, Code, SS1. Indicate the type of wheelchair/scooter used., H350. Bladder Continence (3-day assessme nt period), H400. Bowel Continence (3-day assessment period) were [electronically] signed by Susie Comer C.N.A. on FriNov 25 2019 16:39:12 GMT-0600 (Central Standard Time)
[2019-11-25] MEDS: ENOXAPARIN 40 MG/0.4 ML SQ SCH (16:47)
--- NOTE | 2019-11-25 17:36 | R.PN ---
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 SUBJECTIVE: Pt denied any Shortness of Breath. Pt denied any depression. Ambulated 750' with a rolling walker and independence. Self-propelled wheelchair 250' with independen ce. Up and down 18 steps with standby assistance WBC 8.6, Hgb 12.2, prealbumin 14.9, glucose 98 to 169. UA esterase 2+, WBC 20-50. VITAL SIGNS Temperature: 97.1 F SBP/DBP: 136/64 Pulse: 68 Resp: 18 MEDICATION ALLERGIES: No Known Drug Allergies (NKDA) ENVIRONMENTAL ALLERGIES: None Known - Substance Allergies None Known - Other Allergies None Known NURSING: - Shower allowing shower ACTIVITIES OOB only with supervision THERAPIES: - Dietary and Nutrition Adequate Nutrition. Nutritional Education. Nutritional Supplements. PHYSICAL EXAM - Gen Alert and awake Lying in bed No apparent distress Oriented to: person, time, and place - Skin No skin breakdown. No abnormalities - Eyes No abnormalities - ENMT No abnormalities - Neck No abnormalities - CVS RRR - Chest No abnormalities - Resp Clear to auscultation - Abd Obese, soft, nontender - GI Soft Deferred - No abnormalities - Ext Mild bilateral lower extremity edema. - MSK 4/5 weakness in both lower extremities. - Neuro 4/5 strength right upper and lower extremities. - Psych No abnormalities ASSESSMENT: Pt. is a 74 yo Right-handed black male.On 11/17/2019 he was admitted to [facility] with diagnosis CHF EXACERBATION .His impairment category is Cardiac 09 - Cardiac Disorders (), extreme obesity.His impairment category is Cardiac 09 - Cardiac Disorders ().Pre-morbidly, Pt. wa s independent/mod-I in Locomotion, Safety Awareness, Social Cognition, Transfers Control, Balance, Sp hincter Control, Self-Care, Endurance, and Communication; and he had good Locomotion, Safety Awarenes s, Balance, Social Cognition, Transfers Control, Sphincter Control, Communication, Endurance, and Mirian f-Care.Currently, he has deficits of locomotion, transfers control, endurance, and self care .Pt. is now referred to [facility] for acute in-patient rehabilitation in order to max imize patient's functional independence in activities of daily living, strength, ROM, and mobility.- Rehab Goal Patient has realistic goal of being discharged at assistance level 6-[place] to reside at Home with Fam braden/Relatives. MDM/PLAN: - Physical Therapy Gait dysfunction - to improve, our physical therapists will perform initial evaluation of pt's statu s upon admission and devise an individualized program for Gait Training, and Wheel Chair mobility Inability to transfer - to improve, our physical therapists will perform initial evaluation of pt's status upon admission and devise an individualized program for Bed mobility Need for home safety evaluation - to improve, our physical therapists will perform initial evaluatio n of pt's status upon admission and devise an individualized program for Home Evaluation Need in caregiver upon discharge - to improve, our physical therapists will perform initial evaluati on of pt's status upon admission and devise an individualized program for Caregiver Training Edema - to improve, our physical therapists will perform initial evaluation of pt's status upon admi ssion and devise an individualized program for Elevation Training, and Lymphedema Therapy New precaution - to improve, our physical therapists will perform initial evaluation of pt's status upon admission and devise an individualized program for Patient precaution education Poor endurance - to improve, our physical therapists will perform initial evaluation of pt's status upon admission and devise an individualized program for Endurance Training Weakness - to improve, our physical therapists will perform initial evaluation of pt's status upon a dmission and devise an individualized program for Aquatic Therapy, Neuromuscular Reeducation, and Str engthening Achieving independence - to improve, our physical therapists will perform initial evaluation of pt's status upon admission and devise an individualized program for Community Reintegration Activities - Occupational Therapy Need for field care manager - to improve, our occupation therapists will perform initial evaluation of pt's status upon admission and devise an individualized program for Caregiver Training Weakness - to improve, our occupation therapists will perform initial evaluation of pt's status upon admission and devise an individualized program for Aquatic Therapy, Balance, Endurance, UE ROM, and UE strengthening - Other See attached MAR (Medication Administration Record) - Diet Type Continue Regular - Diet - Liquid Texture Continue Regular - Tube Feed Continue N/A - Diet - Solid Texture Continue Regular - Shower allowing shower FUNCTIONAL STATUS: UPDATED AT WEEKLY TEAM CONFERENCE - Bladder Same accident frequency: 7-Ind - No accidents in the past 7 days - Bowel Same accident frequency: 7-Ind - No accidents in the past 7 days - Walking Same score based on distance walked: 0(N/A) Same score based on distance walked: 3(>=150ft) - Wheelchair Same score based on distance traveled: 0(N/A) FUNCTIONAL STATUS: - Self-Care A. Eating Ind B. Grooming Ind C. Bathing sup D. Dressing - Upper sup E. Dressing - Lower modA F. Toileting Hipolito - Sphincter Control G. Bladder control sup H. Bowel control sup - Transfers Control I. Bed/Chair/Wheelchair modA J. Toilet modA K. Tub/Shower modA - Locomotion L. Walk/Wheelchair (B) sup M. Stairs ADNO - Communication N. Comprehension (B) Ind O. Expression (B) Ind - Social Cognition P. Social Interaction Ind Q. Problem Solving Ind R. Memory Ind - Endurance Good - Balance Good - Safety Awareness Good QI SCORES: - Self-Care A. Eating 05-Setup or clean-up assistance B. Oral hygiene 05-Setup or clean-up assistance C. Toileting hygiene 04-Supervision or touching assistance E. Shower/bathe self 03-Partial/moderate assistance F. Upper body dressing 03-Partial/moderate assistance G. Lower body dressing 02-Substantial/maximal assistance H. Putting on/taking off footwear 02-Substantial/maximal assistance - Mobility A. Roll left and right 03-Partial/moderate assistance B. Sit to lying 03-Partial/moderate assistance C. Lying to sitting on side of bed 03-Partial/moderate assistance D. Sit to stand 03-Partial/moderate assistance E. Chair/uti-ox-ozigv transfer 03-Partial/moderate assistance F. Toilet transfer 03-Partial/moderate assistance G. Car transfer 88-Not attempted due to medical condition or safety concerns I. Walk 10 feet 04-Supervision or touching assistance J. Walk 50 feet with two turns 88-Not attempted due to medical condition or safety concerns K. Walk 150 feet 04-Supervision or touching assistance L. Walking 10 feet on uneven surfaces 88-Not attempted due to medical condition or safety concerns M. 1 step (curb) 88-Not attempted due to medical condition or safety concerns N. 4 steps 88-Not attempted due to medical condition or safety concerns O. 12 steps 88-Not attempted due to medical condition or safety concerns P. Picking up object 88-Not attempted due to medical condition or safety concerns R. Wheel 50 feet with two turns 88-Not attempted due to medical condition or safety concerns S. Wheel 150 feet 88-Not attempted due to medical condition or safety concerns - Bladder and Bowel Bladder continence 0-Always continent Bowel continence 0-Always continent - Endurance Fair - Balance Fair - Safety Awareness Fair CURRENT [facility]. 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
[2019-11-25] MEDS: PROMOD 30 ML DOSE PO SCH (20:23)
[2019-11-25] MEDS: ATORVASTATIN 80 MG TAB PO SCH (20:23)
[2019-11-25] MEDS: TAMSULOSIN 0.4 MG SR CAP PO SCH (20:23)
[2019-11-26] MEDS: carvediloL 25 MG TAB PO SCH ×2 (05:12→17:07)
[2019-11-26] MEDS: PANTOPRAZOLE 40MG TABLET PO SCH (06:44)
[2019-11-26] MEDS: INSULIN -REGULAR HUMAN 50 UNIT/0.5 ML ML SQ SCH ×4 (07:11→19:46)
[2019-11-26] MEDS: JUVEN PACKET PO SCH ×2 (08:00→19:45)
[2019-11-26] MEDS: FINASTERIDE 5 MG TAB PO SCH (08:16)
[2019-11-26] MEDS: lisinopriL 20 MG TAB PO SCH (08:16)
[2019-11-26] MEDS: CRANBERRY FRUIT EXTRACT 200 MG CAP PO SCH ×2 (08:16→19:45)
[2019-11-26] MEDS: POTASSIUM CL SA 10 MEQ TAB PO SCH (08:16)
[2019-11-26] MEDS: ASPIRIN EC 81 MG TAB PO SCH (08:17)
[2019-11-26] MEDS: hydroCHLOROthiazide 25 MG TAB PO SCH (08:17)
[2019-11-26] MEDS: CLOPIDOGREL 75 MG TABLET PO SCH (08:17)
[2019-11-26] MEDS: predniSONE 20 MG TAB PO SCH (08:17)
[2019-11-26] MEDS: PROMOD 30 ML DOSE PO SCH ×2 (09:05→19:45)
--- NOTE | 2019-11-26 10:09 | P.RH.PN ---
Estimated Length of Stay: 12 Expected Discharge Date: 11/30/19 Discharge Disposition Plan: Home Family Support: Yes Jail Goal: Mobility, Transfers, Self Care Vital Signs: Last Vital Signs Temp 97.6 F 11/26/19 07:02 Pulse 68 11/26/19 08:17 Resp 18 11/26/19 07:02 BP 152/79 H 11/26/19 08:17 Pulse Ox 97 11/26/19 07:02 Laboratory: Laboratory Last Values WBC 8.6 K/uL (4.3-10.9) D 11/25/19 05:53 RBC 4.36 M/uL (4.33-5.43) 11/25/19 05:53 Hgb 12.2 g/dL (13.6-17.9) L 11/25/19 05:53 Hct 36.6 % (39.6-49.0) L 11/25/19 05:53 MCV 83.9 fL (80-100) 11/25/19 05:53 MCH 28.0 pg (27.0-35.0) 11/25/19 05:53 MCHC 33.4 g/dL (32.0-36.0) 11/25/19 05:53 RDW 19.1 % (12.1-15.2) H 11/25/19 05:53 Plt Count 262 K/uL (152-406) D 11/25/19 05:53 MPV 8.9 fL (7.6-11.3) 11/25/19 05:53 Neutrophils % 70.5 % (41.7-73.7) 11/25/19 05:53 Lymphocytes % 16.4 % (15.3-44.8) 11/25/19 05:53 Monocytes % 11.3 % (3.3-12.3) 11/25/19 05:53 Eosinophils % 1.2 % (0-4.4) 11/25/19 05:53 Basophils % 0.6 % (0-1.3) 11/25/19 05:53 Absolute Neutrophils 6.1 K/uL (1.8-8.0) 11/25/19 05:53 Absolute Lymphocytes 1.4 K/uL (0.7-4.9) 11/25/19 05:53 Absolute Monocytes 1.0 K/uL (0.1-1.3) 11/25/19 05:53 Absolute Eosinophils 0.1 K/uL (0-0.5) 11/25/19 05:53 Absolute Basophils 0.1 K/uL (0-0.5) 11/25/19 05:53 Sodium 139 mmol/L (136-145) 11/25/19 05:53 Potassium 4.0 mmol/L (3.5-5.1) 11/25/19 05:53 Chloride 104 mmol/L (98-107) 11/25/19 05:53 Carbon Dioxide 32 mmol/L (21-32) 11/25/19 05:53 BUN 26 mg/dL (7-18) H 11/25/19 05:53 Creatinine 1.17 mg/dL (0.55-1.3) 11/25/19 05:53 Estimated GFR 74 mL/min (=/>90) L 11/25/19 05:53 Glucose 98 mg/dL (74-106) 11/25/19 05:53 POC Glucose 76 mg/dl (65-120) 11/26/19 06:52 Calcium 8.7 mg/dL (8.5-10.1) 11/25/19 05:53 Magnesium 2.1 mg/dL (1.8-2.4) 11/25/19 05:53 Albumin 3.2 g/dL (3.4-5.0) L 11/25/19 05:53 Prealbumin 14.9 mg/dL (20-40) L 11/25/19 05:53 Urine Color Yellow 11/19/19 21:40 Urine Appearance Cloudy 11/19/19 21:40 Urine pH 6.5 (5.0-7.0) 11/19/19 21:40 Ur Specific [place] 1.020 (1.005-1.030) 11/19/19 21:40 Urine Ketones Negative (NEG) 11/19/19 21:40 Urine Blood 3+ (NEG) H 11/19/19 21:40 Urine Nitrite Negative (NEG) 11/19/19 21:40 Urine Bilirubin Negative (NEG) 11/19/19 21:40 Urine Urobilinogen 1.0 mg/dL (0.2-1.0) 11/19/19 21:40 Ur Leukocyte Esterase 2+ (NEG) H 11/19/19 21:40 Urine RBC Tntc /HPF (NONE SEEN) H 11/19/19 21:40 Urine WBC 20-50 /HPF (<5) H 11/19/19 21:40 Ur Squamous Epith Cells <5 /HPF (NONE SEEN) 11/19/19 21:40 Urine Bacteria <20 /HPF (NONE SEEN) 11/19/19 21:40 Urine Mucus 1+ /HPF (NONE SEEN) 11/19/19 21:40 Urine Culture Reflexed Not needed 11/19/19 21:40 Urine Glucose Negative (NEG) 11/19/19 21:40 Urine Total Protein 1+ (NEG) H 11/19/19 21:40 Weight: 409 lb 6.4 oz Wound Present: No Closed Surgical Incision Present: No Negative Pressure Wound Therapy Present: No Physician Update: WBC 8.6, Hgb 12.2, glucose 76 to 169, prealbumin 14.9. He is walking 250' independently up to 1250'. He does his ADLs independently. Based on his progress, he will discharged home next Friday. Medical Issues: Patient is always continent with bladder and bowel Functional Improvement: Patient has met all short-term goals at this time and is progressing well toward long-term goals. Patient shows good overall technique and safety awareness w/ therapy. Summary: Patient's care plan and long term acute care registered nurse goals have been reviewed and revised as necessary. Please see the Rehabilitation Signature page for all necessary signatures.
[2019-11-26] MEDS: ENOXAPARIN 40 MG/0.4 ML SQ SCH (17:07)
[2019-11-26] MEDS: TAMSULOSIN 0.4 MG SR CAP PO SCH (19:45)
[2019-11-26] MEDS: ATORVASTATIN 80 MG TAB PO SCH (19:45)
[2019-11-27] MEDS: carvediloL 25 MG TAB PO SCH ×2 (05:02→17:04)
[2019-11-27] MEDS: PANTOPRAZOLE 40MG TABLET PO SCH (06:32)
[2019-11-27] MEDS: LIDOCAINE 4% PATCH TOP SCH (07:15)
[2019-11-27] MEDS: INSULIN -REGULAR HUMAN 50 UNIT/0.5 ML ML SQ SCH ×4 (07:26→19:46)
[2019-11-27] MEDS: JUVEN PACKET PO SCH ×2 (08:00→19:31)
[2019-11-27] MEDS: hydroCHLOROthiazide 25 MG TAB PO SCH (08:15)
[2019-11-27] MEDS: ASPIRIN EC 81 MG TAB PO SCH (08:15)
[2019-11-27] MEDS: lisinopriL 20 MG TAB PO SCH (08:15)
[2019-11-27] MEDS: FINASTERIDE 5 MG TAB PO SCH (08:16)
[2019-11-27] MEDS: CLOPIDOGREL 75 MG TABLET PO SCH (08:16)
[2019-11-27] MEDS: predniSONE 20 MG TAB PO SCH (08:16)
[2019-11-27] MEDS: POTASSIUM CL SA 10 MEQ TAB PO SCH (08:16)
[2019-11-27] MEDS: CRANBERRY FRUIT EXTRACT 200 MG CAP PO SCH ×2 (08:16→19:31)
[2019-11-27] MEDS: PROMOD 30 ML DOSE PO SCH ×2 (08:18→19:36)
--- NOTE | 2019-11-27 14:30 | R.PN ---
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 SUBJECTIVE: Pt denied any Shortness of Breath. Pt denied any depression. Ambulated 500' with a rolling walker and standby assistance. Self-propelled wheelchair 500' with joaquin dby assistance. Up and down 18 steps with standby assistance WBC 8.6, Hgb 12.2, prealbumin 14.9, glucose 96 to 125. UA esterase 2+, WBC 20-50. VITAL SIGNS Temperature: 97.0 F SBP/DBP: 122/65 Pulse: 64 Resp: 16 MEDICATION ALLERGIES: No Known Drug Allergies (NKDA) ENVIRONMENTAL ALLERGIES: None Known - Substance Allergies None Known - Other Allergies None Known NURSING: - Shower allowing shower ACTIVITIES OOB only with supervision THERAPIES: - Dietary and Nutrition Adequate Nutrition. Nutritional Education. Nutritional Supplements. PHYSICAL EXAM - Gen Alert and awake Lying in bed No apparent distress Oriented to: person, time, and place - Skin No skin breakdown. No abnormalities - Eyes No abnormalities - ENMT No abnormalities - Neck No abnormalities - CVS RRR - Chest No abnormalities - Resp Clear to auscultation - Abd Obese, soft, nontender - GI Soft Deferred - No abnormalities - Ext Mild bilateral lower extremity edema. - MSK 4/5 weakness in both lower extremities. - Neuro 4/5 strength right upper and lower extremities. - Psych No abnormalities ASSESSMENT: Pt. is a 74 yo Right-handed black male.On 11/17/2019 he was admitted to [facility] with diagnosis CHF EXACERBATION .His impairment category is Cardiac 09 - Cardiac Disorders (), extreme obesity.His impairment category is Cardiac 09 - Cardiac Disorders ().Pre-morbidly, Pt. wa s independent/mod-I in Locomotion, Safety Awareness, Social Cognition, Transfers Control, Balance, Sp hincter Control, Self-Care, Endurance, and Communication; and he had good Locomotion, Safety Awarenes s, Balance, Social Cognition, Transfers Control, Sphincter Control, Communication, Endurance, and Mirian f-Care.Currently, he has deficits of locomotion, transfers control, endurance, and self care .Pt. is now referred to [facility] for acute in-patient rehabilitation in order to max imize patient's functional independence in activities of daily living, strength, ROM, and mobility.- Rehab Goal Patient has realistic goal of being discharged at assistance level 6-[place] to reside at Home with Fam braden/Relatives. MDM/PLAN: - Physical Therapy Gait dysfunction - to improve, our physical therapists will perform initial evaluation of pt's statu s upon admission and devise an individualized program for Gait Training, and Wheel Chair mobility Inability to transfer - to improve, our physical therapists will perform initial evaluation of pt's status upon admission and devise an individualized program for Bed mobility Need for home safety evaluation - to improve, our physical therapists will perform initial evaluatio n of pt's status upon admission and devise an individualized program for Home Evaluation Need in caregiver upon discharge - to improve, our physical therapists will perform initial evaluati on of pt's status upon admission and devise an individualized program for Caregiver Training Edema - to improve, our physical therapists will perform initial evaluation of pt's status upon admi ssion and devise an individualized program for Elevation Training, and Lymphedema Therapy New precaution - to improve, our physical therapists will perform initial evaluation of pt's status upon admission and devise an individualized program for Patient precaution education Poor endurance - to improve, our physical therapists will perform initial evaluation of pt's status upon admission and devise an individualized program for Endurance Training Weakness - to improve, our physical therapists will perform initial evaluation of pt's status upon a dmission and devise an individualized program for Aquatic Therapy, Neuromuscular Reeducation, and Str engthening Achieving independence - to improve, our physical therapists will perform initial evaluation of pt's status upon admission and devise an individualized program for Community Reintegration Activities - Occupational Therapy Need for healthcare corporate account director - to improve, our occupation therapists will perform initial evaluation of pt's status upon admission and devise an individualized program for Caregiver Training Weakness - to improve, our occupation therapists will perform initial evaluation of pt's status upon admission and devise an individualized program for Aquatic Therapy, Balance, Endurance, UE ROM, and UE strengthening - Other See attached MAR (Medication Administration Record) - Diet Type Continue Regular - Diet - Liquid Texture Continue Regular - Tube Feed Continue N/A - Diet - Solid Texture Continue Regular - Shower allowing shower FUNCTIONAL STATUS: UPDATED AT WEEKLY TEAM CONFERENCE - Bladder Same accident frequency: 7-Ind - No accidents in the past 7 days - Bowel Same accident frequency: 7-Ind - No accidents in the past 7 days - Walking Same score based on distance walked: 0(N/A) Same score based on distance walked: 3(>=150ft) - Wheelchair Same score based on distance traveled: 0(N/A) FUNCTIONAL STATUS: - Self-Care A. Eating Ind B. Grooming Ind C. Bathing sup D. Dressing - Upper sup E. Dressing - Lower modA F. Toileting Hipolito - Sphincter Control G. Bladder control sup H. Bowel control sup - Transfers Control I. Bed/Chair/Wheelchair modA J. Toilet modA K. Tub/Shower modA - Locomotion L. Walk/Wheelchair (B) sup M. Stairs ADNO - Communication N. Comprehension (B) Ind O. Expression (B) Ind - Social Cognition P. Social Interaction Ind Q. Problem Solving Ind R. Memory Ind - Endurance Good - Balance Good - Safety Awareness Good QI SCORES: - Self-Care A. Eating 05-Setup or clean-up assistance B. Oral hygiene 05-Setup or clean-up assistance C. Toileting hygiene 04-Supervision or touching assistance E. Shower/bathe self 03-Partial/moderate assistance F. Upper body dressing 03-Partial/moderate assistance G. Lower body dressing 02-Substantial/maximal assistance H. Putting on/taking off footwear 02-Substantial/maximal assistance - Mobility A. Roll left and right 03-Partial/moderate assistance B. Sit to lying 03-Partial/moderate assistance C. Lying to sitting on side of bed 03-Partial/moderate assistance D. Sit to stand 03-Partial/moderate assistance E. Chair/[id number] transfer 03-Partial/moderate assistance F. Toilet transfer 03-Partial/moderate assistance G. Car transfer 88-Not attempted due to medical condition or safety concerns I. Walk 10 feet 04-Supervision or touching assistance J. Walk 50 feet with two turns 88-Not attempted due to medical condition or safety concerns K. Walk 150 feet 04-Supervision or touching assistance L. Walking 10 feet on uneven surfaces 88-Not attempted due to medical condition or safety concerns M. 1 step (curb) 88-Not attempted due to medical condition or safety concerns N. 4 steps 88-Not attempted due to medical condition or safety concerns O. 12 steps 88-Not attempted due to medical condition or safety concerns P. Picking up object 88-Not attempted due to medical condition or safety concerns R. Wheel 50 feet with two turns 88-Not attempted due to medical condition or safety concerns S. Wheel 150 feet 88-Not attempted due to medical condition or safety concerns - Bladder and Bowel Bladder continence 0-Always continent Bowel continence 0-Always continent - Endurance Fair - Balance Fair - Safety Awareness Fair CURRENT [facility]. 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
[2019-11-27] MEDS: ENOXAPARIN 40 MG/0.4 ML SQ SCH (17:04)
[2019-11-27] MEDS: ATORVASTATIN 80 MG TAB PO SCH (19:31)
[2019-11-27] MEDS: TAMSULOSIN 0.4 MG SR CAP PO SCH (19:31)
[2019-11-28] MEDS: carvediloL 25 MG TAB PO SCH ×2 (05:12→16:49)
[2019-11-28] MEDS: PANTOPRAZOLE 40MG TABLET PO SCH (06:19)
[2019-11-28] MEDS: INSULIN -REGULAR HUMAN 50 UNIT/0.5 ML ML SQ SCH ×4 (07:30→19:38)
[2019-11-28] MEDS: LIDOCAINE 4% PATCH TOP SCH (07:56)
[2019-11-28] MEDS: POTASSIUM CL SA 10 MEQ TAB PO SCH (07:57)
[2019-11-28] MEDS: PROMOD 30 ML DOSE PO SCH ×2 (07:57→19:21)
[2019-11-28] MEDS: CRANBERRY FRUIT EXTRACT 200 MG CAP PO SCH ×2 (07:57→19:21)
[2019-11-28] MEDS: lisinopriL 20 MG TAB PO SCH (07:57)
[2019-11-28] MEDS: FINASTERIDE 5 MG TAB PO SCH (07:57)
[2019-11-28] MEDS: JUVEN PACKET PO SCH ×2 (07:58→19:21)
[2019-11-28] MEDS: hydroCHLOROthiazide 25 MG TAB PO SCH (07:58)
[2019-11-28] MEDS: ASPIRIN EC 81 MG TAB PO SCH (07:58)
[2019-11-28] MEDS: predniSONE 20 MG TAB PO SCH (07:58)
[2019-11-28] MEDS: CLOPIDOGREL 75 MG TABLET PO SCH (07:58)
[2019-11-28] MEDS: ENOXAPARIN 40 MG/0.4 ML SQ SCH (16:48)
[2019-11-28] MEDS: TAMSULOSIN 0.4 MG SR CAP PO SCH (19:21)
[2019-11-28] MEDS: ATORVASTATIN 80 MG TAB PO SCH (19:21)
[2019-11-29] MEDS: carvediloL 25 MG TAB PO SCH ×2 (05:08→17:00)
[2019-11-29] MEDS: PANTOPRAZOLE 40MG TABLET PO SCH (06:30)
[2019-11-29] MEDS: INSULIN -REGULAR HUMAN 50 UNIT/0.5 ML ML SQ SCH ×4 (07:30→20:19)
[2019-11-29] MEDS: PROMOD 30 ML DOSE PO SCH ×2 (08:00→20:18)
[2019-11-29] MEDS: JUVEN PACKET PO SCH ×2 (08:00→20:00)
[2019-11-29] MEDS: CRANBERRY FRUIT EXTRACT 200 MG CAP PO SCH ×2 (08:39→20:18)
[2019-11-29] MEDS: FINASTERIDE 5 MG TAB PO SCH (08:39)
[2019-11-29] MEDS: POTASSIUM CL SA 10 MEQ TAB PO SCH (08:39)
[2019-11-29] MEDS: predniSONE 20 MG TAB PO SCH (08:40)
[2019-11-29] MEDS: hydroCHLOROthiazide 25 MG TAB PO SCH (08:40)
[2019-11-29] MEDS: lisinopriL 20 MG TAB PO SCH (08:40)
[2019-11-29] MEDS: ASPIRIN EC 81 MG TAB PO SCH (08:40)
[2019-11-29] MEDS: LIDOCAINE 4% PATCH TOP SCH (08:40)
[2019-11-29] MEDS: CLOPIDOGREL 75 MG TABLET PO SCH (08:41)
--- NOTE | 2019-11-29 14:46 | FAST ---
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 Laureano Waller M.D. ADMISSION DIAGNOSIS: - Cardiac 09 - Cardiac Disorders () CHF EXACERBATION . EATING: Not assessed/no information CODE: - ORAL HYGIENE: ORAL HYGIENE - STEP 1: Does the patient complete the activity by him/herself with no assistance (physical, verbal/nonverbal cueing, setup/clean-up)? Yes. 1. ADMISSION PERFORMANCE: Independent CODE: 06 TOILETING HYGIENE: Not assessed/no information CODE: - BATHING: SHOWER/BATHE SELF - STEP 1: Does the patient complete the activity by him/herself with no assistance (physical, verbal/nonverbal cueing, setup/clean-up)? Yes. 1. ADMISSION PERFORMANCE: Independent CODE: 06 DRESSING - UPPER BODY: DRESSING - UPPER BODY - STEP 1: Does the patient complete the activity by him/herself with no assistance (physical, verbal/nonverbal cueing, setup/clean-up)? Yes. 1. ADMISSION PERFORMANCE: Independent CODE: 06 DRESSING - LOWER BODY: DRESSING - LOWER BODY - STEP 1: Does the patient complete the activity by him/herself with no assistance (physical, verbal/nonverbal cueing, setup/clean-up)? Yes. 1. ADMISSION PERFORMANCE: Independent CODE: 06 PUTTING ON/TAKING OFF FOOTWEAR: FOOTWEAR - STEP 1: Does the patient complete the activity by him/herself with no assistance (physical, verbal/nonverbal cueing, setup/clean-up)? Yes. 1. [id number] ADMISSION PERFORMANCE: Independent CODE: 06 DOES THE PATIENT USE A WHEELCHAIR/SCOOTER? CODE: EXPR INDICATE THE TYPE OF WHEELCHAIR/SCOOTER USED: CODE: EXPR INDICATE THE TYPE OF WHEELCHAIR/SCOOTER USED: CODE: EXPR BLADDER AND BOWEL: CODE: EXPR CODE: EXPR SIGNATURE PANEL: The following modified sections: 1. [id number] Admission Performance, 1. [id number] Admission Performance, 1. [id number] Admission Performance, 1. [id number] Admission Performance, 1. [id number] Admission Performance were [electronically] signed by JASON Krishna on FriNov 29 2019 14:46:17 GMT-0600 (Central Standard Time)
[2019-11-29] MEDS: ENOXAPARIN 40 MG/0.4 ML SQ SCH (17:00)
[2019-11-29] MEDS: TAMSULOSIN 0.4 MG SR CAP PO SCH (20:18)
[2019-11-29] MEDS: ATORVASTATIN 80 MG TAB PO SCH (20:18)
--- NOTE | 2019-11-29 21:21 | R.PN ---
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 SUBJECTIVE: Pt denied any Shortness of Breath. Pt denied any depression. Ambulated 500' with a rolling walker and standby assistance. Self-propelled wheelchair 500' with joauqin dby assistance. Up and down 18 steps with standby assistance WBC 8.6, Hgb 12.2, prealbumin 14.9, glucose 96 to 125. UA esterase 2+, WBC 20-50. ADLs performed with independence. VITAL SIGNS Temperature: 97.0 F SBP/DBP: 128/72 Pulse: 79 Resp: 16 MEDICATION ALLERGIES: No Known Drug Allergies (NKDA) ENVIRONMENTAL ALLERGIES: None Known - Substance Allergies None Known - Other Allergies None Known NURSING: - Shower allowing shower ACTIVITIES OOB only with supervision THERAPIES: - Dietary and Nutrition Adequate Nutrition. Nutritional Education. Nutritional Supplements. PHYSICAL EXAM - Gen Alert and awake Lying in bed No apparent distress Oriented to: person, time, and place - Skin No skin breakdown. No abnormalities - Eyes No abnormalities - ENMT No abnormalities - Neck No abnormalities - CVS RRR - Chest No abnormalities - Resp Clear to auscultation - Abd Obese, soft, nontender - GI Soft Deferred - No abnormalities - Ext Mild bilateral lower extremity edema. - MSK 4/5 weakness in both lower extremities. - Neuro 4/5 strength right upper and lower extremities. - Psych No abnormalities ASSESSMENT: Pt. is a 74 yo Right-handed black male.On 11/17/2019 he was admitted to [facility] with diagnosis CHF EXACERBATION .His impairment category is Cardiac 09 - Cardiac Disorders (), extreme obesity.His impairment category is Cardiac 09 - Cardiac Disorders ().Pre-morbidly, Pt. wa s independent/mod-I in Locomotion, Safety Awareness, Social Cognition, Transfers Control, Balance, Sp hincter Control, Self-Care, Endurance, and Communication; and he had good Locomotion, Safety Awarenes s, Balance, Social Cognition, Transfers Control, Sphincter Control, Communication, Endurance, and Mirian f-Care.Currently, he has deficits of locomotion, transfers control, endurance, and self care .Pt. is now referred to [facility] for acute in-patient rehabilitation in order to max imize patient's functional independence in activities of daily living, strength, ROM, and mobility.- Rehab Goal Patient has realistic goal of being discharged at assistance level 6-[place] to reside at Home with Fam braden/Relatives. MDM/PLAN: - Physical Therapy Gait dysfunction - to improve, our physical therapists will perform initial evaluation of pt's statu s upon admission and devise an individualized program for Gait Training, and Wheel Chair mobility Inability to transfer - to improve, our physical therapists will perform initial evaluation of pt's status upon admission and devise an individualized program for Bed mobility Need for home safety evaluation - to improve, our physical therapists will perform initial evaluatio n of pt's status upon admission and devise an individualized program for Home Evaluation Need in caregiver upon discharge - to improve, our physical therapists will perform initial evaluati on of pt's status upon admission and devise an individualized program for Caregiver Training Edema - to improve, our physical therapists will perform initial evaluation of pt's status upon admi ssion and devise an individualized program for Elevation Training, and Lymphedema Therapy New precaution - to improve, our physical therapists will perform initial evaluation of pt's status upon admission and devise an individualized program for Patient precaution education Poor endurance - to improve, our physical therapists will perform initial evaluation of pt's status upon admission and devise an individualized program for Endurance Training Weakness - to improve, our physical therapists will perform initial evaluation of pt's status upon a dmission and devise an individualized program for Aquatic Therapy, Neuromuscular Reeducation, and Str engthening Achieving independence - to improve, our physical therapists will perform initial evaluation of pt's status upon admission and devise an individualized program for Community Reintegration Activities - Occupational Therapy Need for career development director - to improve, our occupation therapists will perform initial evaluation of pt's status upon admission and devise an individualized program for Caregiver Training Weakness - to improve, our occupation therapists will perform initial evaluation of pt's status upon admission and devise an individualized program for Aquatic Therapy, Balance, Endurance, UE ROM, and UE strengthening - Other See attached MAR (Medication Administration Record) - Diet Type Continue Regular - Diet - Liquid Texture Continue Regular - Tube Feed Continue N/A - Diet - Solid Texture Continue Regular - Shower allowing shower FUNCTIONAL STATUS: UPDATED AT WEEKLY TEAM CONFERENCE - Bladder Same accident frequency: 7-Ind - No accidents in the past 7 days - Bowel Same accident frequency: 7-Ind - No accidents in the past 7 days - Walking Same score based on distance walked: 0(N/A) Same score based on distance walked: 3(>=150ft) - Wheelchair Same score based on distance traveled: 0(N/A) FUNCTIONAL STATUS: - Self-Care A. Eating Ind B. Grooming Ind C. Bathing sup D. Dressing - Upper sup E. Dressing - Lower modA F. Toileting Hipolito - Sphincter Control G. Bladder control sup H. Bowel control sup - Transfers Control I. Bed/Chair/Wheelchair modA J. Toilet modA K. Tub/Shower modA - Locomotion L. Walk/Wheelchair (B) sup M. Stairs ADNO - Communication N. Comprehension (B) Ind O. Expression (B) Ind - Social Cognition P. Social Interaction Ind Q. Problem Solving Ind R. Memory Ind - Endurance Good - Balance Good - Safety Awareness Good QI SCORES: - Self-Care A. Eating 05-Setup or clean-up assistance B. Oral hygiene 05-Setup or clean-up assistance C. Toileting hygiene 04-Supervision or touching assistance E. Shower/bathe self 03-Partial/moderate assistance F. Upper body dressing 03-Partial/moderate assistance G. Lower body dressing 02-Substantial/maximal assistance H. Putting on/taking off footwear 02-Substantial/maximal assistance - Mobility A. Roll left and right 03-Partial/moderate assistance B. Sit to lying 03-Partial/moderate assistance C. Lying to sitting on side of bed 03-Partial/moderate assistance D. Sit to stand 03-Partial/moderate assistance E. Chair/[id number] transfer 03-Partial/moderate assistance F. Toilet transfer 03-Partial/moderate assistance G. Car transfer 88-Not attempted due to medical condition or safety concerns I. Walk 10 feet 04-Supervision or touching assistance J. Walk 50 feet with two turns 88-Not attempted due to medical condition or safety concerns K. Walk 150 feet 04-Supervision or touching assistance L. Walking 10 feet on uneven surfaces 88-Not attempted due to medical condition or safety concerns M. 1 step (curb) 88-Not attempted due to medical condition or safety concerns N. 4 steps 88-Not attempted due to medical condition or safety concerns O. 12 steps 88-Not attempted due to medical condition or safety concerns P. Picking up object 88-Not attempted due to medical condition or safety concerns R. Wheel 50 feet with two turns 88-Not attempted due to medical condition or safety concerns S. Wheel 150 feet 88-Not attempted due to medical condition or safety concerns - Bladder and Bowel Bladder continence 0-Always continent Bowel continence 0-Always continent - Endurance Fair - Balance Fair - Safety Awareness Fair [facility]RENT [facility] 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
[2019-11-30] MEDS: carvediloL 25 MG TAB PO SCH ×2 (05:14→17:29)
[2019-11-30] MEDS: PANTOPRAZOLE 40MG TABLET PO SCH (06:40)
[2019-11-30] MEDS: INSULIN -REGULAR HUMAN 50 UNIT/0.5 ML ML SQ SCH ×4 (07:30→20:30)
[2019-11-30] MEDS: LIDOCAINE 4% PATCH TOP SCH (07:54)
[2019-11-30] MEDS: JUVEN PACKET PO SCH ×2 (08:00→19:36)
[2019-11-30] MEDS: CLOPIDOGREL 75 MG TABLET PO SCH (08:04)
[2019-11-30] MEDS: lisinopriL 20 MG TAB PO SCH (08:04)
[2019-11-30] MEDS: ASPIRIN EC 81 MG TAB PO SCH (08:04)
[2019-11-30] MEDS: CRANBERRY FRUIT EXTRACT 200 MG CAP PO SCH ×2 (08:05→19:36)
[2019-11-30] MEDS: hydroCHLOROthiazide 25 MG TAB PO SCH (08:05)
[2019-11-30] MEDS: POTASSIUM CL SA 10 MEQ TAB PO SCH (08:05)
[2019-11-30] MEDS: FINASTERIDE 5 MG TAB PO SCH (08:05)
[2019-11-30] MEDS: PROMOD 30 ML DOSE PO SCH ×2 (08:06→19:36)
--- NOTE | 2019-11-30 10:23 | FAST ---
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 Laureano Waller M.D. ADMISSION DIAGNOSIS: - Cardiac 09 - Cardiac Disorders () CHF EXACERBATION . EATING: EATING - STEP 1: Does the patient complete the activity by him/herself with no assistance (physical, verbal/nonverbal cueing, setup/clean-up)? No. EATING - STEP 2: Does the patient need only setup/clean-up assistance from one helper? No. EATING - STEP 3: Does the patient need only verbal/nonverbal cueing or touching/steadying/contact guard assistance fro m one helper? Yes. 1. [id number] ADMISSION PERFORMANCE: Supervision or touching assistance CODE: 04 ORAL HYGIENE: ORAL HYGIENE - STEP 1: Does the patient complete the activity by him/herself with no assistance (physical, verbal/nonverbal cueing, setup/clean-up)? No. ORAL HYGIENE - STEP 2: Does the patient need only setup/clean-up assistance from one helper? No. ORAL HYGIENE - STEP 3: Does the patient need only verbal/nonverbal cueing or touching/steadying/contact guard assistance fro m one helper? Yes. 1. [id number] ADMISSION PERFORMANCE: Supervision or touching assistance CODE: 04 TOILETING HYGIENE: TOILETING HYGIENE - STEP 1: Does the patient complete the activity by him/herself with no assistance (physical, verbal/nonverbal cueing, setup/clean-up)? No. TOILETING HYGIENE - STEP 2: Does the patient need only setup/clean-up assistance from one helper? No. TOILETING HYGIENE - STEP 3: Does the patient need only verbal/nonverbal cueing or touching/steadying/contact guard assistance fro m one helper? Yes. 1. [id number] ADMISSION PERFORMANCE: Supervision or touching assistance CODE: 04 BATHING: Not assessed/no information CODE: - DRESSING - UPPER BODY: Not assessed/no information CODE: - DRESSING - LOWER BODY: Not assessed/no information CODE: - PUTTING ON/TAKING OFF FOOTWEAR: Not assessed/no information CODE: - ROLL LEFT AND RIGHT: ROLL LEFT AND RIGHT - STEP 1: Does the patient complete the activity by him/herself with no assistance (physical, verbal/nonverbal cueing, setup/clean-up)? No. ROLL LEFT AND RIGHT - STEP 2: Does the patient need only setup/clean-up assistance from one helper? No. ROLL LEFT AND RIGHT - STEP 3: Does the patient need only verbal/nonverbal cueing or touching/steadying/contact guard assistance fro m one helper? No. ROLL LEFT AND RIGHT - STEP 4: Does the patient need physical assistance - for example lifting or trunk support from one helper - wi th the helper providing less than half of the effort? Yes. 1. [id number] ADMISSION PERFORMANCE: Partial/moderate assistance CODE: 03 SIT TO LYING: SIT TO LYING - STEP 1: Does the patient complete the activity by him/herself with no assistance (physical, verbal/nonverbal cueing, setup/clean-up)? No. SIT TO LYING - STEP 2: Does the patient need only setup/clean-up assistance from one helper? No. SIT TO LYING - STEP 3: Does the patient need only verbal/nonverbal cueing or touching/steadying/contact guard assistance fro m one helper? Yes. 1. [id number] ADMISSION PERFORMANCE: Supervision or touching assistance CODE: 04 LYING TO SITTING: LYING TO SITTING ON SIDE OF BED - STEP 1: Does the patient complete the activity by him/herself with no assistance (physical, verbal/nonverbal cueing, setup/clean-up)? No. LYING TO SITTING ON SIDE OF BED - STEP 2: Does the patient need only setup/clean-up assistance from one helper? No. LYING TO SITTING ON SIDE OF BED - STEP 3: Does the patient need only verbal/nonverbal cueing or touching/steadying/contact guard assistance fro m one helper? Yes. 1. [id number] ADMISSION PERFORMANCE: Supervision or touching assistance CODE: 04 SIT TO STAND: SIT TO STAND - STEP 1: Does the patient complete the activity by him/herself with no assistance (physical, verbal/nonverbal cueing, setup/clean-up)? No. SIT TO STAND - STEP 2: Does the patient need only setup/clean-up assistance from one helper? No. SIT TO STAND - STEP 3: Does the patient need only verbal/nonverbal cueing or touching/steadying/contact guard assistance fro m one helper? Yes. 1. [id number] ADMISSION PERFORMANCE: Supervision or touching assistance CODE: 04 TRANSFERS: BED, CHAIR: [id number]/[id number] TRANSFER - STEP 1: Does the patient complete the activity by him/herself with no assistance (physical, verbal/nonverbal cueing, setup/clean-up)? No. CHAIR/[id number] TRANSFER - STEP 2: Does the patient need only setup/clean-up assistance from one helper? No. CHAIR/[id number] TRANSFER - STEP 3: Does the patient need only verbal/nonverbal cueing or touching/steadying/contact guard assistance fro m one helper? Yes. 1. [id number] ADMISSION PERFORMANCE: Supervision or touching assistance CODE: TRANSFER TOILET: TOILET TRANSFER - STEP 1: Does the patient complete the activity by him/herself with no assistance (physical, verbal/nonverbal cueing, setup/clean-up)? No. TOILET TRANSFER - STEP 2: Does the patient need only setup/clean-up assistance from one helper? No. TOILET TRANSFER - STEP 3: Does the patient need only verbal/nonverbal cueing or touching/steadying/contact guard assistance fro m one helper? Yes. 1. [id number] ADMISSION PERFORMANCE: Supervision or touching assistance CODE: 04 TRANSFERS: CAR: Not assessed/no information CODE: - WALK 10 FEET: Not assessed/no information CODE: - 1 STEP (CURB): Not assessed/no information CODE: - PICKING UP OBJECT: Not assessed/no information CODE: - DOES THE PATIENT USE A WHEELCHAIR/SCOOTER? CODE: EXPR WHEEL 50 FEET WITH TWO TURNS: Not assessed/no information CODE: - INDICATE THE TYPE OF WHEELCHAIR/SCOOTER USED: CODE: EXPR WHEEL 150 FEET: Not assessed/no information CODE: - INDICATE THE TYPE OF WHEELCHAIR/SCOOTER USED: CODE: EXPR BLADDER AND BOWEL: H350. BLADDER CONTINENCE (3-DAY ASSESSMENT PERIOD): Always continent (no documented incontinence) CODE: 0 H400. BOWEL CONTINENCE (3-DAY ASSESSMENT PERIOD): Always continent CODE: 0 SIGNATURE PANEL: The following modified sections: 1. [id number] Admission Performance, 1. [id number] Admission Performance, 1. [id number] Admission Performance, 1. [id number] Admission Performance, 1. [id number] Admission Performance, 1. [id number] Admission Performance, 1. [id number] Admission Performance, 1. [id number] Admission Performance , 1. [id number] Admission Performance, 1. [id number] Admission Performance, Code, H350. Bladder Continence (3-day assessment period), H400. Bowel Continence (3-day assessment period) were [electronically] sig kellie by Steve Anguiano on FriNov 30 2019 10:22:29 GMT-0600 (Central Standard Time)
--- NOTE | 2019-11-30 10:50 | FAST ---
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 Laureano Waller M.D. ADMISSION DIAGNOSIS: - Cardiac 09 - Cardiac Disorders () CHF EXACERBATION . EATING: EATING - STEP 1: Does the patient complete the activity by him/herself with no assistance (physical, verbal/nonverbal cueing, setup/clean-up)? No. EATING - STEP 2: Does the patient need only setup/clean-up assistance from one helper? No. EATING - STEP 3: Does the patient need only verbal/nonverbal cueing or touching/steadying/contact guard assistance fro m one helper? No. EATING - STEP 4: Does the patient need physical assistance - for example lifting or trunk support from one helper - wi th the helper providing less than half of the effort? Yes. 1. [id number] ADMISSION PERFORMANCE: Partial/moderate assistance CODE: 03 ORAL HYGIENE: ORAL HYGIENE - STEP 1: Does the patient complete the activity by him/herself with no assistance (physical, verbal/nonverbal cueing, setup/clean-up)? No. ORAL HYGIENE - STEP 2: Does the patient need only setup/clean-up assistance from one helper? No. ORAL HYGIENE - STEP 3: Does the patient need only verbal/nonverbal cueing or touching/steadying/contact guard assistance fro m one helper? Yes. 1. [id number] ADMISSION PERFORMANCE: Supervision or touching assistance CODE: 04 TOILETING HYGIENE: TOILETING HYGIENE - STEP 1: Does the patient complete the activity by him/herself with no assistance (physical, verbal/nonverbal cueing, setup/clean-up)? No. TOILETING HYGIENE - STEP 2: Does the patient need only setup/clean-up assistance from one helper? No. TOILETING HYGIENE - STEP 3: Does the patient need only verbal/nonverbal cueing or touching/steadying/contact guard assistance fro m one helper? Yes. 1. [id number] ADMISSION PERFORMANCE: Supervision or touching assistance CODE: 04 BATHING: Not assessed/no information CODE: - DRESSING - UPPER BODY: Not assessed/no information CODE: - DRESSING - LOWER BODY: Not assessed/no information CODE: - PUTTING ON/TAKING OFF FOOTWEAR: Not assessed/no information CODE: - ROLL LEFT AND RIGHT: ROLL LEFT AND RIGHT - STEP 1: Does the patient complete the activity by him/herself with no assistance (physical, verbal/nonverbal cueing, setup/clean-up)? No. ROLL LEFT AND RIGHT - STEP 2: Does the patient need only setup/clean-up assistance from one helper? No. ROLL LEFT AND RIGHT - STEP 3: Does the patient need only verbal/nonverbal cueing or touching/steadying/contact guard assistance fro m one helper? Yes. 1. [id number] ADMISSION PERFORMANCE: Supervision or touching assistance CODE: 04 SIT TO LYING: SIT TO LYING - STEP 1: Does the patient complete the activity by him/herself with no assistance (physical, verbal/nonverbal cueing, setup/clean-up)? No. SIT TO LYING - STEP 2: Does the patient need only setup/clean-up assistance from one helper? No. SIT TO LYING - STEP 3: Does the patient need only verbal/nonverbal cueing or touching/steadying/contact guard assistance fro m one helper? No. SIT TO LYING - STEP 4: Does the patient need physical assistance - for example lifting or trunk support from one helper - wi th the helper providing less than half of the effort? Yes. 1. [id number] ADMISSION PERFORMANCE: Partial/moderate assistance CODE: 03 LYING TO SITTING: LYING TO SITTING ON SIDE OF BED - STEP 1: Does the patient complete the activity by him/herself with no assistance (physical, verbal/nonverbal cueing, setup/clean-up)? No. LYING TO SITTING ON SIDE OF BED - STEP 2: Does the patient need only setup/clean-up assistance from one helper? No. LYING TO SITTING ON SIDE OF BED - STEP 3: Does the patient need only verbal/nonverbal cueing or touching/steadying/contact guard assistance fro m one helper? No. LYING TO SITTING ON SIDE OF BED - STEP 4: Does the patient need physical assistance - for example lifting or trunk support from one helper - wi th the helper providing less than half of the effort? Yes. 1. [id number] ADMISSION PERFORMANCE: Partial/moderate assistance CODE: 03 SIT TO STAND: SIT TO STAND - STEP 1: Does the patient complete the activity by him/herself with no assistance (physical, verbal/nonverbal cueing, setup/clean-up)? No. SIT TO STAND - STEP 2: Does the patient need only setup/clean-up assistance from one helper? No. SIT TO STAND - STEP 3: Does the patient need only verbal/nonverbal cueing or touching/steadying/contact guard assistance fro m one helper? No. SIT TO STAND - STEP 4: Does the patient need physical assistance - for example lifting or trunk support from one helper - wi th the helper providing less than half of the effort? Yes. 1. [id number] ADMISSION PERFORMANCE: Partial/moderate assistance CODE: 03 TRANSFERS: BED, CHAIR: CHAIR/[id number] TRANSFER - STEP 1: Does the patient complete the activity by him/herself with no assistance (physical, verbal/nonverbal cueing, setup/clean-up)? No. CHAIR/[id number] TRANSFER - STEP 2: Does the patient need only setup/clean-up assistance from one helper? No. CHAIR/[id number] TRANSFER - STEP 3: Does the patient need only verbal/nonverbal cueing or touching/steadying/contact guard assistance fro m one helper? Yes. 1. [id number] ADMISSION PERFORMANCE: Supervision or touching assistance CODE: 04 TRANSFER TOILET: TOILET TRANSFER - STEP 1: Does the patient complete the activity by him/herself with no assistance (physical, verbal/nonverbal cueing, setup/clean-up)? No. TOILET TRANSFER - STEP 2: Does the patient need only setup/clean-up assistance from one helper? No. TOILET TRANSFER - STEP 3: Does the patient need only verbal/nonverbal cueing or touching/steadying/contact guard assistance fro m one helper? Yes. 1. [id number] ADMISSION PERFORMANCE: Supervision or touching assistance CODE: 04 TRANSFERS: CAR: Not assessed/no information CODE: - WALK 10 FEET: Not assessed/no information CODE: - 1 STEP (CURB): Not assessed/no information CODE: - PICKING UP OBJECT: Not assessed/no information CODE: - DOES THE PATIENT USE A WHEELCHAIR/SCOOTER? CODE: EXPR WHEEL 50 FEET WITH TWO TURNS: Not assessed/no information CODE: - INDICATE THE TYPE OF WHEELCHAIR/SCOOTER USED: CODE: EXPR WHEEL 150 FEET: Not assessed/no information CODE: - INDICATE THE TYPE OF WHEELCHAIR/SCOOTER USED: CODE: EXPR BLADDER AND BOWEL: H350. BLADDER CONTINENCE (3-DAY ASSESSMENT PERIOD): Always continent (no documented incontinence) CODE: 0 H400. BOWEL CONTINENCE (3-DAY ASSESSMENT PERIOD): Always continent CODE: 0 SIGNATURE PANEL: The following modified sections: 1. [id number] Admission Performance, 1. [id number] Admission Performance, 1. [id number] Admission Performance, 1. [id number] Admission Performance, 1. [id number] Admission Performance, 1. [id number] Admission Performance, 1. [id number] Admission Performance, 1. [id number] Admission Performance , 1. [id number] Admission Performance, Code, H350. Bladder Continence (3-day assessment period), H400. B owel Continence (3-day assessment period) were [electronically] signed by Steve Anguiano on FriNov 30 10:49:21 T-0600 (Central Standard Time)
[2019-11-30] MEDS: ENOXAPARIN 40 MG/0.4 ML SQ SCH (17:29)
[2019-11-30] MEDS: TAMSULOSIN 0.4 MG SR CAP PO SCH (19:36)
[2019-11-30] MEDS: ATORVASTATIN 80 MG TAB PO SCH (19:36)
--- NOTE | 2019-11-30 21:59 | R.PN ---
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 SUBJECTIVE: Pt denied any Shortness of Breath. Pt denied any depression. Ambulated 1050' with a rolling walker with independence. Self-propelled wheelchair 500' with independ ence. Up and down 18 steps with standby assistance WBC 8.6, Hgb 12.2, prealbumin 14.9, glucose 96 to 125. UA esterase 2+, WBC 20-50. ADLs performed with independence. VITAL SIGNS Temperature: 97.0 F SBP/DBP: 119/58 Pulse: 71 Resp: 16 MEDICATION ALLERGIES: No Known Drug Allergies (NKDA) ENVIRONMENTAL ALLERGIES: None Known - Substance Allergies None Known - Other Allergies None Known NURSING: - Shower allowing shower ACTIVITIES OOB only with supervision THERAPIES: - Dietary and Nutrition Adequate Nutrition. Nutritional Education. Nutritional Supplements. PHYSICAL EXAM - Gen Alert and awake Lying in bed No apparent distress Oriented to: person, time, and place - Skin No skin breakdown. No abnormalities - Eyes No abnormalities - ENMT No abnormalities - Neck No abnormalities - CVS RRR - Chest No abnormalities - Resp Clear to auscultation - Abd Obese, soft, nontender - GI Soft Deferred - No abnormalities - Ext Mild bilateral lower extremity edema. - MSK 4/5 weakness in both lower extremities. - Neuro 4/5 strength right upper and lower extremities. - Psych No abnormalities ASSESSMENT: Pt. is a 74 yo Right-handed black male.On 11/17/2019 he was admitted to [facility] with diagnosis CHF EXACERBATION .His impairment category is Cardiac 09 - Cardiac Disorders (), extreme obesity.His impairment category is Cardiac 09 - Cardiac Disorders ().Pre-morbidly, Pt. wa s independent/mod-I in Locomotion, Safety Awareness, Social Cognition, Transfers Control, Balance, Sp hincter Control, Self-Care, Endurance, and Communication; and he had good Locomotion, Safety Awarenes s, Balance, Social Cognition, Transfers Control, Sphincter Control, Communication, Endurance, and Mirian f-Care.Currently, he has deficits of locomotion, transfers control, endurance, and self care .Pt. is now referred to [facility] for acute in-patient rehabilitation in order to max imize patient's functional independence in activities of daily living, strength, ROM, and mobility.- Rehab Goal Patient has realistic goal of being discharged at assistance level 6-[place] to reside at Home with Fam braden/Relatives. MDM/PLAN: - Physical Therapy Gait dysfunction - to improve, our physical therapists will perform initial evaluation of pt's statu s upon admission and devise an individualized program for Gait Training, and Wheel Chair mobility Inability to transfer - to improve, our physical therapists will perform initial evaluation of pt's status upon admission and devise an individualized program for Bed mobility Need for home safety evaluation - to improve, our physical therapists will perform initial evaluatio n of pt's status upon admission and devise an individualized program for Home Evaluation Need in caregiver upon discharge - to improve, our physical therapists will perform initial evaluati on of pt's status upon admission and devise an individualized program for Caregiver Training Edema - to improve, our physical therapists will perform initial evaluation of pt's status upon admi ssion and devise an individualized program for Elevation Training, and Lymphedema Therapy New precaution - to improve, our physical therapists will perform initial evaluation of pt's status upon admission and devise an individualized program for Patient precaution education Poor endurance - to improve, our physical therapists will perform initial evaluation of pt's status upon admission and devise an individualized program for Endurance Training Weakness - to improve, our physical therapists will perform initial evaluation of pt's status upon a dmission and devise an individualized program for Aquatic Therapy, Neuromuscular Reeducation, and Str engthening Achieving independence - to improve, our physical therapists will perform initial evaluation of pt's status upon admission and devise an individualized program for Community Reintegration Activities - Occupational Therapy Need for manager of care - to improve, our occupation therapists will perform initial evaluation of pt's status upon admission and devise an individualized program for Caregiver Training Weakness - to improve, our occupation therapists will perform initial evaluation of pt's status upon admission and devise an individualized program for Aquatic Therapy, Balance, Endurance, UE ROM, and UE strengthening - Other See attached MAR (Medication Administration Record) - Diet Type Continue Regular - Diet - Liquid Texture Continue Regular - Tube Feed Continue N/A - Diet - Solid Texture Continue Regular - Shower allowing shower FUNCTIONAL STATUS: UPDATED AT WEEKLY TEAM CONFERENCE - Bladder Same accident frequency: 7-Ind - No accidents in the past 7 days - Bowel Same accident frequency: 7-Ind - No accidents in the past 7 days - Walking Same score based on distance walked: 0(N/A) Same score based on distance walked: 3(>=150ft) - Wheelchair Same score based on distance traveled: 0(N/A) FUNCTIONAL STATUS: - Self-Care A. Eating Ind B. Grooming Ind C. Bathing sup D. Dressing - Upper sup E. Dressing - Lower modA F. Toileting Hipolito - Sphincter Control G. Bladder control sup H. Bowel control sup - Transfers Control I. Bed/Chair/Wheelchair modA J. Toilet modA K. Tub/Shower modA - Locomotion L. Walk/Wheelchair (B) sup M. Stairs ADNO - Communication N. Comprehension (B) Ind O. Expression (B) Ind - Social Cognition P. Social Interaction Ind Q. Problem Solving Ind R. Memory Ind - Endurance Good - Balance Good - Safety Awareness Good QI SCORES: - Self-Care A. Eating 05-Setup or clean-up assistance B. Oral hygiene 05-Setup or clean-up assistance C. Toileting hygiene 04-Supervision or touching assistance E. Shower/bathe self 03-Partial/moderate assistance F. Upper body dressing 03-Partial/moderate assistance G. Lower body dressing 02-Substantial/maximal assistance H. Putting on/taking off footwear 02-Substantial/maximal assistance - Mobility A. Roll left and right 03-Partial/moderate assistance B. Sit to lying 03-Partial/moderate assistance C. Lying to sitting on side of bed 03-Partial/moderate assistance D. Sit to stand 03-Partial/moderate assistance E. Chair/hef-pg-[id number] transfer 03-Partial/moderate assistance F. Toilet transfer 03-Partial/moderate assistance G. Car transfer 88-Not attempted due to medical condition or safety concerns I. Walk 10 feet 04-Supervision or touching assistance J. Walk 50 feet with two turns 88-Not attempted due to medical condition or safety concerns K. Walk 150 feet 04-Supervision or touching assistance L. Walking 10 feet on uneven surfaces 88-Not attempted due to medical condition or safety concerns M. 1 step (curb) 88-Not attempted due to medical condition or safety concerns N. 4 steps 88-Not attempted due to medical condition or safety concerns O. 12 steps 88-Not attempted due to medical condition or safety concerns P. Picking up object 88-Not attempted due to medical condition or safety concerns R. Wheel 50 feet with two turns 88-Not attempted due to medical condition or safety concerns S. Wheel 150 feet 88-Not attempted due to medical condition or safety concerns - Bladder and Bowel Bladder continence 0-Always continent Bowel continence 0-Always continent - Endurance Fair - Balance Fair - Safety Awareness Fair [facility] 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
[2019-12-01] MEDS: carvediloL 25 MG TAB PO SCH ×2 (05:19→16:47)
[2019-12-01] MEDS: PANTOPRAZOLE 40MG TABLET PO SCH (06:34)
[2019-12-01] MEDS: INSULIN -REGULAR HUMAN 50 UNIT/0.5 ML ML SQ SCH ×4 (07:30→20:11)
[2019-12-01] MEDS: JUVEN PACKET PO SCH ×2 (08:00→20:00)
[2019-12-01] MEDS: LIDOCAINE 4% PATCH TOP SCH (08:28)
[2019-12-01] MEDS: CRANBERRY FRUIT EXTRACT 200 MG CAP PO SCH ×2 (08:28→20:11)
[2019-12-01] MEDS: lisinopriL 20 MG TAB PO SCH (08:29)
[2019-12-01] MEDS: CLOPIDOGREL 75 MG TABLET PO SCH (08:29)
[2019-12-01] MEDS: POTASSIUM CL SA 10 MEQ TAB PO SCH (08:29)
[2019-12-01] MEDS: FINASTERIDE 5 MG TAB PO SCH (08:29)
[2019-12-01] MEDS: ASPIRIN EC 81 MG TAB PO SCH (08:29)
[2019-12-01] MEDS: PROMOD 30 ML DOSE PO SCH ×2 (08:30→20:00)
[2019-12-01] MEDS: hydroCHLOROthiazide 25 MG TAB PO SCH (08:30)
--- NOTE | 2019-12-01 12:25 | FAST ---
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 Laureano Waller M.D. ADMISSION DIAGNOSIS: - Cardiac 09 - Cardiac Disorders (09) CHF EXACERBATION . EATING: Not assessed/no information CODE: - ORAL HYGIENE: Not assessed/no information ORAL HYGIENE - STEP 1: Does the patient complete the activity by him/herself with no assistance (physical, verbal/nonverbal cueing, setup/clean-up)? Yes. 1. ADMISSION PERFORMANCE: Independent CODE: 06 TOILETING HYGIENE: Not assessed/no information CODE: - BATHING: SHOWER/BATHE SELF - STEP 1: Does the patient complete the activity by him/herself with no assistance (physical, verbal/nonverbal cueing, setup/clean-up)? Yes. 1. ADMISSION PERFORMANCE: Independent CODE: 06 DRESSING - UPPER BODY: DRESSING - UPPER BODY - STEP 1: Does the patient complete the activity by him/herself with no assistance (physical, verbal/nonverbal cueing, setup/clean-up)? Yes. 1. ADMISSION PERFORMANCE: Independent CODE: 06 DRESSING - LOWER BODY: DRESSING - LOWER BODY - STEP 1: Does the patient complete the activity by him/herself with no assistance (physical, verbal/nonverbal cueing, setup/clean-up)? Yes. 1. ADMISSION PERFORMANCE: Independent CODE: 06 PUTTING ON/TAKING OFF FOOTWEAR: FOOTWEAR - STEP 1: Does the patient complete the activity by him/herself with no assistance (physical, verbal/nonverbal cueing, setup/clean-up)? Yes. 1. [id number] ADMISSION PERFORMANCE: Independent CODE: 06 DOES THE PATIENT USE A WHEELCHAIR/SCOOTER? CODE: EXPR INDICATE THE TYPE OF WHEELCHAIR/SCOOTER USED: CODE: EXPR INDICATE THE TYPE OF WHEELCHAIR/SCOOTER USED: CODE: EXPR BLADDER AND BOWEL: CODE: EXPR CODE: EXPR SIGNATURE PANEL: The following modified sections: 1. [id number] Admission Performance, 1. [id number] Admission Performance, 1. [id number] Admission Performance, 1. AD6863a Admission Performance, 1. [id number] Admission Performance were [electronically] signed by JASON Krishna on FriDec 01 2019 12:24:26 GMT-0600 (Central Standard Time)
[2019-12-01] MEDS: ENOXAPARIN 40 MG/0.4 ML SQ SCH (16:47)
[2019-12-01] MEDS: ATORVASTATIN 80 MG TAB PO SCH (20:09)
[2019-12-01] MEDS: TAMSULOSIN 0.4 MG SR CAP PO SCH (20:09)
[2019-12-02] MEDS: carvediloL 25 MG TAB PO SCH ×2 (05:30→17:05)
[2019-12-02 06:16] LABS: Absolute Lymphocytes (CBC) 1.2 K/uL (0.7-4.9); Basophils % 0.5 % (0-1.3); Hematocrit 37.4 % (39.6-49.0); Lymphocytes % 20.6 % (15.3-44.8); MPV 9.4 fL (7.6-11.3); RBC Red Blood Cell Count 4.42 M/uL (4.33-5.43)
[2019-12-02 06:33] LABS: Magnesium 2.1 mg/dL (1.8-2.4); Potassium 3.9 mmol/L (3.5-5.1); Prealbumin 13.1 mg/dL (20-40)
[2019-12-02] MEDS: PANTOPRAZOLE 40MG TABLET PO SCH (07:23)
[2019-12-02] MEDS: INSULIN -REGULAR HUMAN 50 UNIT/0.5 ML ML SQ SCH ×4 (07:30→20:20)
[2019-12-02] MEDS: PROMOD 30 ML DOSE PO SCH ×2 (08:00→20:00)
[2019-12-02] MEDS: JUVEN PACKET PO SCH ×2 (08:00→20:00)
[2019-12-02] MEDS: LIDOCAINE 4% PATCH TOP SCH (08:26)
[2019-12-02] MEDS: ASPIRIN EC 81 MG TAB PO SCH (08:27)
[2019-12-02] MEDS: FINASTERIDE 5 MG TAB PO SCH (08:27)
[2019-12-02] MEDS: lisinopriL 20 MG TAB PO SCH (08:27)
[2019-12-02] MEDS: CRANBERRY FRUIT EXTRACT 200 MG CAP PO SCH ×2 (08:27→20:19)
[2019-12-02] MEDS: hydroCHLOROthiazide 25 MG TAB PO SCH (08:28)
[2019-12-02] MEDS: CLOPIDOGREL 75 MG TABLET PO SCH (08:28)
[2019-12-02] MEDS: POTASSIUM CL SA 10 MEQ TAB PO SCH (08:28)
[2019-12-02] MEDS: ENOXAPARIN 40 MG/0.4 ML SQ SCH (16:56)
--- NOTE | 2019-12-02 17:37 | FAST ---
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 Laureano Waller M.D. ADMISSION DIAGNOSIS: - Cardiac 09 - Cardiac Disorders (09) CHF EXACERBATION . ROLL LEFT AND RIGHT: ROLL LEFT AND RIGHT - STEP 1: Does the patient complete the activity by him/herself with no assistance (physical, verbal/nonverbal cueing, setup/clean-up)? Yes. 1. [id number] ADMISSION PERFORMANCE: Independent CODE: 06 SIT TO LYING: SIT TO LYING - STEP 1: Does the patient complete the activity by him/herself with no assistance (physical, verbal/nonverbal cueing, setup/clean-up)? Yes. 1. [id number] ADMISSION PERFORMANCE: Independent CODE: 06 LYING TO SITTING: LYING TO SITTING ON SIDE OF BED - STEP 1: Does the patient complete the activity by him/herself with no assistance (physical, verbal/nonverbal cueing, setup/clean-up)? Yes. 1. [id number] ADMISSION PERFORMANCE: Independent CODE: 06 SIT TO STAND: SIT TO STAND - STEP 1: Does the patient complete the activity by him/herself with no assistance (physical, verbal/nonverbal cueing, setup/clean-up)? Yes. 1. [id number] ADMISSION PERFORMANCE: Independent CODE: 06 TRANSFERS: BED, CHAIR: CHAIR/[id number] TRANSFER - STEP 1: Does the patient complete the activity by him/herself with no assistance (physical, verbal/nonverbal cueing, setup/clean-up)? Yes. 1. [id number] ADMISSION PERFORMANCE: Independent CODE: 06 TRANSFER TOILET: TOILET TRANSFER - STEP 1: Does the patient complete the activity by him/herself with no assistance (physical, verbal/nonverbal cueing, setup/clean-up)? Yes. 1. [id number] ADMISSION PERFORMANCE: Independent CODE: 06 TRANSFERS: CAR: CAR TRANSFER - STEP 1: Does the patient complete the activity by him/herself with no assistance (physical, verbal/nonverbal cueing, setup/clean-up)? Yes. 1. [id number] ADMISSION PERFORMANCE: Independent CODE: 06 WALK 10 FEET: WALK 10 FEET - STEP 1: Does the patient complete the activity by him/herself with no assistance (physical, verbal/nonverbal cueing, setup/clean-up)? Yes. 1. [id number] ADMISSION PERFORMANCE: Independent CODE: 06 WALK 50 FEET: WALK 50 FEET - STEP 1: Does the patient complete the activity by him/herself with no assistance (physical, verbal/nonverbal cueing, setup/clean-up)? Yes. 1. [id number] ADMISSION PERFORMANCE: Independent CODE: 06 WALK 150 FEET: WALK 150 FEET - STEP 1: Does the patient complete the activity by him/herself with no assistance (physical, verbal/nonverbal cueing, setup/clean-up)? Yes. 1. [id number] ADMISSION PERFORMANCE: Independent CODE: 06 WALK 10 FEET UNEVEN: WALKING 10 FEET ON UNEVEN SURFACES - STEP 1: Does the patient complete the activity by him/herself with no assistance (physical, verbal/nonverbal cueing, setup/clean-up)? Yes. 1. [id number] ADMISSION PERFORMANCE: Independent CODE: 06 1 STEP (CURB): 1 STEP CURB - STEP 1: Does the patient complete the activity by him/herself with no assistance (physical, verbal/nonverbal cueing, setup/clean-up)? Yes. 1. [id number] ADMISSION PERFORMANCE: Independent CODE: 06 4 STEPS: 4 STEPS - STEP 1: Does the patient complete the activity by him/herself with no assistance (physical, verbal/nonverbal cueing, setup/clean-up)? Yes. 1. [id number] ADMISSION PERFORMANCE: Independent CODE: 06 12 STEPS: 12 STEPS - STEP 1: Does the patient complete the activity by him/herself with no assistance (physical, verbal/nonverbal cueing, setup/clean-up)? Yes. 1. [id number] ADMISSION PERFORMANCE: Independent CODE: 06 PICKING UP OBJECT: PICKING UP OBJECT - STEP 1: Does the patient complete the activity by him/herself with no assistance (physical, verbal/nonverbal cueing, setup/clean-up)? Yes. 1. [id number] ADMISSION PERFORMANCE: Independent CODE: 06 DOES THE PATIENT USE A WHEELCHAIR/SCOOTER? Q1. DOES THE PATIENT USE A WHEELCHAIR/SCOOTER?: No CODE: 0 INDICATE THE TYPE OF WHEELCHAIR/SCOOTER USED: CODE: EXPR INDICATE THE TYPE OF WHEELCHAIR/SCOOTER USED: CODE: EXPR BLADDER AND BOWEL: CODE: EXPR CODE: EXPR SIGNATURE PANEL: The following modified sections: 1. [id number] Admission Performance, 1. [id number] Admission Performance, 1. IP1460A Admission Performance, 1. [id number] Admission Performance, 1. [id number] Admission Performance, 1. [id number] Admission Performance, 1. [id number] Admission Performance, 1. [id number] Admission Performance , 1. [id number] Admission Performance, 1. AV8852Z Admission Performance, 1. [id number] Admission Performanc e, 1. [id number] Admission Performance, 1. [id number] Admission Performance, 1. [id number] Admission Performan ce, 1. [id number] Admission Performance, Q1. Does the patient use a wheelchair/scooter? were [electronic ally] signed by Juan Diego Alvarez PT on FriDec 02 2019 17:36:27 T-0600 (Central Standard Time)
--- NOTE | 2019-12-02 19:14 | R.PN ---
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 SUBJECTIVE: Pt denied any Shortness of Breath. Pt denied any depression. Ambulated 1250' with a rolling walker with independence. Self-propelled wheelchair 500' with independ ence. Up and down 15 steps with independence. WBC 5.6, Hgb 12.2, prealbumin 13.1, glucose 98 to 120. ADLs performed with independence. VITAL SIGNS Temperature: 97.0 F SBP/DBP: 123/60 Pulse: 73 Resp: 16 MEDICATION ALLERGIES: No Known Drug Allergies (NKDA) ENVIRONMENTAL ALLERGIES: None Known - Substance Allergies None Known - Other Allergies None Known NURSING: - Shower allowing shower ACTIVITIES OOB only with supervision THERAPIES: - Dietary and Nutrition Adequate Nutrition. Nutritional Education. Nutritional Supplements. PHYSICAL EXAM - Gen Alert and awake Lying in bed No apparent distress Oriented to: person, time, and place - Skin No skin breakdown. No abnormalities - Eyes No abnormalities - ENMT No abnormalities - Neck No abnormalities - CVS RRR - Chest No abnormalities - Resp Clear to auscultation - Abd Obese, soft, nontender - GI Soft Deferred - No abnormalities - Ext Mild bilateral lower extremity edema. - MSK 4/5 weakness in both lower extremities. - Neuro 4/5 strength right upper and lower extremities. - Psych No abnormalities ASSESSMENT: Pt. is a 74 yo Right-handed black male.On 11/17/2019 he was admitted to [facility] with diagnosis CHF EXACERBATION .His impairment category is Cardiac 09 - Cardiac Disorders (09), extreme obesity.His impairment category is Cardiac 09 - Cardiac Disorders (09).Pre-morbidly, Pt. wa s independent/mod-I in Locomotion, Safety Awareness, Social Cognition, Transfers Control, Balance, Sp hincter Control, Self-Care, Endurance, and Communication; and he had good Locomotion, Safety Awarenes s, Balance, Social Cognition, Transfers Control, Sphincter Control, Communication, Endurance, and Mirian f-Care.Currently, he has deficits of locomotion, transfers control, endurance, and self care .Pt. is now referred to [facility] for acute in-patient rehabilitation in order to max imize patient's functional independence in activities of daily living, strength, ROM, and mobility.- Rehab Goal Patient has realistic goal of being discharged at assistance level 6-[place] to reside at Home with Fam braden/Relatives. MDM/PLAN: - Physical Therapy Gait dysfunction - to improve, our physical therapists will perform initial evaluation of pt's statu s upon admission and devise an individualized program for Gait Training, and Wheel Chair mobility Inability to transfer - to improve, our physical therapists will perform initial evaluation of pt's status upon admission and devise an individualized program for Bed mobility Need for home safety evaluation - to improve, our physical therapists will perform initial evaluatio n of pt's status upon admission and devise an individualized program for Home Evaluation Need in caregiver upon discharge - to improve, our physical therapists will perform initial evaluati on of pt's status upon admission and devise an individualized program for Caregiver Training Edema - to improve, our physical therapists will perform initial evaluation of pt's status upon admi ssion and devise an individualized program for Elevation Training, and Lymphedema Therapy New precaution - to improve, our physical therapists will perform initial evaluation of pt's status upon admission and devise an individualized program for Patient precaution education Poor endurance - to improve, our physical therapists will perform initial evaluation of pt's status upon admission and devise an individualized program for Endurance Training Weakness - to improve, our physical therapists will perform initial evaluation of pt's status upon a dmission and devise an individualized program for Aquatic Therapy, Neuromuscular Reeducation, and Str engthening Achieving independence - to improve, our physical therapists will perform initial evaluation of pt's status upon admission and devise an individualized program for Community Reintegration Activities - Occupational Therapy Need for healthcare administration internship - to improve, our occupation therapists will perform initial evaluation of pt's status upon admission and devise an individualized program for Caregiver Training Weakness - to improve, our occupation therapists will perform initial evaluation of pt's status upon admission and devise an individualized program for Aquatic Therapy, Balance, Endurance, UE ROM, and UE strengthening - Other See attached MAR (Medication Administration Record) - Diet Type Continue Regular - Diet - Liquid Texture Continue Regular - Tube Feed Continue N/A - Diet - Solid Texture Continue Regular - Shower allowing shower FUNCTIONAL STATUS: UPDATED AT WEEKLY TEAM CONFERENCE - Bladder Same accident frequency: 7-Ind - No accidents in the past 7 days - Bowel Same accident frequency: 7-Ind - No accidents in the past 7 days - Walking Same score based on distance walked: 0(N/A) Same score based on distance walked: 3(>=150ft) - Wheelchair Same score based on distance traveled: 0(N/A) FUNCTIONAL STATUS: - Self-Care A. Eating Ind B. Grooming Ind C. Bathing sup D. Dressing - Upper sup E. Dressing - Lower modA F. Toileting Hipolito - Sphincter Control G. Bladder control sup H. Bowel control sup - Transfers Control I. Bed/Chair/Wheelchair modA J. Toilet modA K. Tub/Shower modA - Locomotion L. Walk/Wheelchair (B) sup M. Stairs ADNO - Communication N. Comprehension (B) Ind O. Expression (B) Ind - Social Cognition P. Social Interaction Ind Q. Problem Solving Ind R. Memory Ind - Endurance Good - Balance Good - Safety Awareness Good QI SCORES: - Self-Care A. Eating 05-Setup or clean-up assistance B. Oral hygiene 05-Setup or clean-up assistance C. Toileting hygiene 04-Supervision or touching assistance E. Shower/bathe self 03-Partial/moderate assistance F. Upper body dressing 03-Partial/moderate assistance G. Lower body dressing 02-Substantial/maximal assistance H. Putting on/taking off footwear 02-Substantial/maximal assistance - Mobility A. Roll left and right 03-Partial/moderate assistance B. Sit to lying 03-Partial/moderate assistance C. Lying to sitting on side of bed 03-Partial/moderate assistance D. Sit to stand 03-Partial/moderate assistance E. Chair/jxw-ro-hfvbt transfer 03-Partial/moderate assistance F. Toilet transfer 03-Partial/moderate assistance G. Car transfer 88-Not attempted due to medical condition or safety concerns I. Walk 10 feet 04-Supervision or touching assistance J. Walk 50 feet with two turns 88-Not attempted due to medical condition or safety concerns K. Walk 150 feet 04-Supervision or touching assistance L. Walking 10 feet on uneven surfaces 88-Not attempted due to medical condition or safety concerns M. 1 step (curb) 88-Not attempted due to medical condition or safety concerns N. 4 steps 88-Not attempted due to medical condition or safety concerns O. 12 steps 88-Not attempted due to medical condition or safety concerns P. Picking up object 88-Not attempted due to medical condition or safety concerns R. Wheel 50 feet with two turns 88-Not attempted due to medical condition or safety concerns S. Wheel 150 feet 88-Not attempted due to medical condition or safety concerns - Bladder and Bowel Bladder continence 0-Always continent Bowel continence 0-Always continent - Endurance Fair - Balance Fair - Safety Awareness Fair CURRENT [facility]. 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
[2019-12-02] MEDS: ATORVASTATIN 80 MG TAB PO SCH (20:19)
[2019-12-02] MEDS: TAMSULOSIN 0.4 MG SR CAP PO SCH (20:19)
[2019-12-02 20:51] VITALS: TEMP 97.3
[2019-12-03] MEDS: carvediloL 25 MG TAB PO SCH (05:26)
[2019-12-03] MEDS: PANTOPRAZOLE 40MG TABLET PO SCH (06:19)
[2019-12-03] MEDS: INSULIN -REGULAR HUMAN 50 UNIT/0.5 ML ML SQ SCH (07:30)
[2019-12-03] MEDS: JUVEN PACKET PO SCH (08:00)
[2019-12-03] MEDS: PROMOD 30 ML DOSE PO SCH (08:00)
[2019-12-03] MEDS: LIDOCAINE 4% PATCH TOP SCH (08:26)
[2019-12-03] MEDS: ASPIRIN EC 81 MG TAB PO SCH (08:27)
[2019-12-03] MEDS: lisinopriL 20 MG TAB PO SCH (08:27)
[2019-12-03] MEDS: FINASTERIDE 5 MG TAB PO SCH (08:28)
[2019-12-03] MEDS: CLOPIDOGREL 75 MG TABLET PO SCH (08:28)
[2019-12-03] MEDS: POTASSIUM CL SA 10 MEQ TAB PO SCH (08:28)
[2019-12-03] MEDS: hydroCHLOROthiazide 25 MG TAB PO SCH (08:28)
[2019-12-03] MEDS: CRANBERRY FRUIT EXTRACT 200 MG CAP PO SCH (08:29)
[2019-12-03 08:31] VITALS: BP 118/68
--- NOTE | 2019-12-03 09:58 | P.RH.PN ---
Estimated Length of Stay: 15 Expected Discharge Date: 12/03/19 Discharge Disposition Plan: Home Family Support: Yes Vital Signs: Last Vital Signs Temp 97.3 F 12/02/19 20:00 Pulse 82 12/03/19 08:28 Resp 18 12/02/19 20:00 BP 118/68 12/03/19 08:28 Pulse Ox 98 12/02/19 20:00 Laboratory: Laboratory Last Values WBC 5.6 K/uL (4.3-10.9) D 12/02/19 05:53 RBC 4.42 M/uL (4.33-5.43) 12/02/19 05:53 Hgb 12.2 g/dL (13.6-17.9) L 12/02/19 05:53 Hct 37.4 % (39.6-49.0) L 12/02/19 05:53 MCV 84.6 fL (80-100) 12/02/19 05:53 MCH 27.5 pg (27.0-35.0) 12/02/19 05:53 MCHC 32.5 g/dL (32.0-36.0) 12/02/19 05:53 RDW 18.7 % (12.1-15.2) H 12/02/19 05:53 Plt Count 227 K/uL (152-406) 12/02/19 05:53 MPV 9.4 fL (7.6-11.3) 12/02/19 05:53 Neutrophils % 63.4 % (41.7-73.7) 12/02/19 05:53 Lymphocytes % 20.6 % (15.3-44.8) 12/02/19 05:53 Monocytes % 13.5 % (3.3-12.3) H 12/02/19 05:53 Eosinophils % 2.0 % (0-4.4) 12/02/19 05:53 Basophils % 0.5 % (0-1.3) 12/02/19 05:53 Absolute Neutrophils 3.6 K/uL (1.8-8.0) 12/02/19 05:53 Absolute Lymphocytes 1.2 K/uL (0.7-4.9) 12/02/19 05:53 Absolute Monocytes 0.8 K/uL (0.1-1.3) 12/02/19 05:53 Absolute Eosinophils 0.1 K/uL (0-0.5) 12/02/19 05:53 Absolute Basophils 0.0 K/uL (0-0.5) 12/02/19 05:53 Sodium 141 mmol/L (136-145) 12/02/19 05:53 Potassium 3.9 mmol/L (3.5-5.1) 12/02/19 05:53 Chloride 106 mmol/L (98-107) 12/02/19 05:53 Carbon Dioxide 31 mmol/L (21-32) 12/02/19 05:53 BUN 22 mg/dL (7-18) H 12/02/19 05:53 Creatinine 1.04 mg/dL (0.55-1.3) 12/02/19 05:53 Estimated GFR 85 mL/min (=/>90) L 12/02/19 05:53 Glucose 112 mg/dL (74-106) H 12/02/19 05:53 POC Glucose 132 mg/dl (65-120) H 12/03/19 07:58 Calcium 8.5 mg/dL (8.5-10.1) 12/02/19 05:53 Magnesium 2.1 mg/dL (1.8-2.4) 12/02/19 05:53 Albumin 3.0 g/dL (3.4-5.0) L 12/02/19 05:53 Prealbumin 13.1 mg/dL (20-40) L 12/02/19 05:53 Urine Color Yellow 11/19/19 21:40 Urine Appearance Cloudy 11/19/19 21:40 Urine pH 6.5 (5.0-7.0) 11/19/19 21:40 Ur Specific Nicholson 1.020 (1.005-1.030) 11/19/19 21:40 Urine Ketones Negative (NEG) 11/19/19 21:40 Urine Blood 3+ (NEG) H 11/19/19 21:40 Urine Nitrite Negative (NEG) 11/19/19 21:40 Urine Bilirubin Negative (NEG) 11/19/19 21:40 Urine Urobilinogen 1.0 mg/dL (0.2-1.0) 11/19/19 21:40 Ur Leukocyte Esterase 2+ (NEG) H 11/19/19 21:40 Urine RBC Tntc /HPF (NONE SEEN) H 11/19/19 21:40 Urine WBC 20-50 /HPF (<5) H 11/19/19 21:40 Ur Squamous Epith Cells <5 /HPF (NONE SEEN) 11/19/19 21:40 Urine Bacteria <20 /HPF (NONE SEEN) 11/19/19 21:40 Urine Mucus 1+ /HPF (NONE SEEN) 11/19/19 21:40 Urine Culture Reflexed Not needed 11/19/19 21:40 Urine Glucose Negative (NEG) 11/19/19 21:40 Urine Total Protein 1+ (NEG) H 11/19/19 21:40 Weight: 409 lb 6.4 oz Wound Present: No Closed Surgical Incision Present: No Negative Pressure Wound Therapy Present: No Physician Update: His labs reviewed and are stable. He is doing well with physical and occupational therapy and he is ready for D/C today and may have outpatient physical therapy. Medical Issues: Patient is always continent with bladder and bowel. Functional Improvement: pt demonstrated consistent progress throughout the week and has met his functional goals. pt is set for home discharge tomorrow. 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 Please see the Rehabilitation Signature page for all necessary signatures.
--- NOTE | 2019-12-03 15:21 | FAST ---
ENCOUNTER DATE AND TIME: 12/03/2019 08:00 ([employer]) NAME MELYSSA OBANDO DATE OF : 1945 DATE OF ADMISSION: 11/19/2019 20:03 ([employer]) PHONE: AGE: 74 N# [id number] GENDER: Male ENCOUNTER PHYSICIAN: Dr. Laureano Waller M.D. ADMISSION DIAGNOSIS: - Cardiac 09 - Cardiac Disorders (09) CHF EXACERBATION . EATING: Not assessed/no information CODE: - ORAL HYGIENE: ORAL HYGIENE - STEP 1: Does the patient complete the activity by him/herself with no assistance (physical, verbal/nonverbal cueing, setup/clean-up)? Yes. 1. ADMISSION PERFORMANCE: Independent CODE: 06 TOILETING HYGIENE: Not assessed/no information CODE: - BATHING: SHOWER/BATHE SELF - STEP 1: Does the patient complete the activity by him/herself with no assistance (physical, verbal/nonverbal cueing, setup/clean-up)? Yes. 1. ADMISSION PERFORMANCE: Independent CODE: 06 DRESSING - UPPER BODY: DRESSING - UPPER BODY - STEP 1: Does the patient complete the activity by him/herself with no assistance (physical, verbal/nonverbal cueing, setup/clean-up)? Yes. 1. ADMISSION PERFORMANCE: Independent CODE: 06 DRESSING - LOWER BODY: DRESSING - LOWER BODY - STEP 1: Does the patient complete the activity by him/herself with no assistance (physical, verbal/nonverbal cueing, setup/clean-up)? Yes. 1. [id number] ADMISSION PERFORMANCE: Independent CODE: 06 PUTTING ON/TAKING OFF FOOTWEAR: FOOTWEAR - STEP 1: Does the patient complete the activity by him/herself with no assistance (physical, verbal/nonverbal cueing, setup/clean-up)? Yes. 1. [id number] ADMISSION PERFORMANCE: Independent CODE: 06 DOES THE PATIENT USE A WHEELCHAIR/SCOOTER? CODE: EXPR INDICATE THE TYPE OF WHEELCHAIR/SCOOTER USED: CODE: EXPR INDICATE THE TYPE OF WHEELCHAIR/SCOOTER USED: CODE: EXPR BLADDER AND BOWEL: CODE: EXPR CODE: EXPR SIGNATURE PANEL: The following modified sections: 1. [id number] Admission Performance, 1. [id number] Admission Performance, 1. [id number] Admission Performance, 1. [id number] Admission Performance, 1. [id number] Admission Performance were [electronically] signed by JASON Krishna on FriDec 03 2019 15:20:26 GMT-0600 (Central Standard Time)
== END 2019-12-03 11:30 | disposition home health service (06) | DRG 293 ==
LOC: 5TH 20:03
PROVIDERS: ADMIT Psychiatry & Neurology Neurology with Special Qualifications in Child Neurology; ATTEND Psychiatry & Neurology Neurology with Special Qualifications in Child Neurology
DX: I50.9 Heart failure, unspecified (principal); R54 Age-related physical debility; G47.30 Sleep apnea, unspecified; I10 Essential (primary) hypertension; E78.5 Hyperlipidemia, unspecified; E66.09 Other obesity due to excess calories; E11.9 Type 2 diabetes mellitus without complications
CPT/HCPCS: 36415; 80048; 81001; 82040; 82947; 83735; 84134; 85025; 87077; 87086; 87088; 87186; 97110; 97112; 97116; 97161; 97530; 97542; J1650; J7512

== ENCOUNTER 2019-12-09 09:01 | Observation (INO) | payer OTHER ==
--- NOTE | 2019-12-09 10:17 | RAD REPORT ---
EXAM DESCRIPTION: CT - Head Brain Wo Cont - 12/09/2019 9:58 am CLINICAL HISTORY: Left arm and left leg weakness COMPARISON: CT study November 17, 2019 TECHNIQUE: Axial 5 mm thick images of the head were obtained without IV contrast. All CT scans are performed using dose optimization technique as appropriate and may include automated exposure control or mA/KV adjustment according to patient size. FINDINGS: No intracranial hemorrhage, mass, edema or shift of mid-line structures. No acute infarcti on changes seen. No abnormal extra-axial fluid collections. Atrophy and chronic ischemic changes are present similar to the comparison. Ventricles are in proportion to the amount of volume loss. Mastoid air cells and visualized portions of the paranasal sinuses are clear. No acute bony findings. IMPRESSION: Negative non-contrast CT head examination. Atrophy and chronic ischemic changes match the prior study.
--- NOTE | 2019-12-09 10:30 | RAD REPORT ---
EXAM DESCRIPTION: RAD - Chest Single View - 12/09/2019 10:22 am CLINICAL HISTORY: COUGH Chest pain. COMPARISON: Chest Single View dated 11/16/2019 FINDINGS: Portable technique limits examination quality. The lungs are grossly clear. The heart is normal in size. Mildly tortuous thoracic aorta. IMPRESSION: No acute intrathoracic process suspected.
[2019-12-09 10:42] LABS: Absolute Lymphocytes (CBC) 0.6 K/uL (0.7-4.9); Basophils % 0.6 % (0-1.3); Hematocrit 33.4 % (39.6-49.0); Lymphocytes % 13.3 % (15.3-44.8); MPV 8.5 fL (7.6-11.3); RBC Red Blood Cell Count 3.91 M/uL (4.33-5.43)
[2019-12-09 10:44] LABS: Protime INR 1.11
[2019-12-09 11:18] LABS: ALT/SGPT 26 U/L (12-78); AST/SGOT 22 U/L (15-37); Albumin 3.3 g/dL (3.4-5.0); Alkaline Phosphatase 76 U/L (45-117); BUN Blood Urea Nitrogen 17 mg/dL (7-18); Bicarbonate 29 mmol/L (21-32); Bilirubin Direct 0.3 mg/dL (0-0.2); Bilirubin Total 0.7 mg/dL (0.2-1.0); Glucose Level 112 mg/dL (74-106); Magnesium 2.1 mg/dL (1.8-2.4); NT PRO-BNP 390 pg/mL (<125); Potassium 3.7 mmol/L (3.5-5.1); Protein, Total 6.9 g/dL (6.4-8.2); Sodium Level 144 mmol/L (136-145); Troponin (Emerg Dept Use Only) < 0.02 ng/mL (0.0-0.045)
--- NOTE | 2019-12-09 11:37 | EDPHYS ---
Physician Documentation [facility] – [place], [place] Name: Eze Wallace Age: 74 yrs Sex: Male : 1945 Arrival Date: 12/09/2019 Time: 09:04 Bed 4 Private MD: None, None ED Physician Marco Gonzalez HPI: 12/09 10:12 This 74 yrs old Black Male presents to ER via Wheelchair with complaints of Left side ashley weakness. 10:12 The patient's problem is reported as weakness, in the left upper extremity, in the left ashley lower extremity. Onset: The symptoms/episode began/occurred 1 week(s) ago. Duration: The episode is continuous. Context: the episode(s) was witnessed, by family. The symptoms are alleviated by rest, The symptoms are aggravated by standing, walking. Associated signs and symptoms: The patient has no apparent associated signs or symptoms. Historical: - Allergies: 09:26 No Known Allergies; iw - Home Meds: 13:40 Aspirin Oral [Active]; atorvastatin Oral [Active]; carvedilol Oral [Active]; jl7 finasteride Oral [Active]; Hydrochlorothiazide Oral [Active]; lisinopril Oral [Active]; Omeprazole Oral [Active]; Potassium Chloride Oral [Active]; tamulosin [Active]; - PMHx: 09:26 BPH; High Cholesterol; Hypertension; Obesity; iw - PSHx: 09:26 None; iw - Immunization history:: Adult Immunizations up to date. - Social history:: Smoking status: Patient/guardian denies using tobacco. - Ebola Screening: : Patient negative for fever greater than or equal to 101.5 degrees Fahrenheit, and additional compatible Ebola Virus Disease symptoms Patient denies exposure to infectious person Patient denies travel to an Ebola-affected area in the 21 days before illness onset No symptoms or risks identified at this time. ROS: 10:14 Constitutional: Negative for fever, chills, and weight loss, Eyes: Negative for injury, ashley pain, redness, and discharge, ENT: Negative for injury, pain, and discharge, Neck: Negative for injury, pain, and swelling, Cardiovascular: Negative for chest pain, palpitations, and edema, Respiratory: Negative for shortness of breath, cough, wheezing, and pleuritic chest pain, Abdomen/GI: Negative for abdominal pain, nausea, vomiting, diarrhea, and constipation, Back: Negative for injury and pain, : Negative for injury, bleeding, discharge, and swelling, Skin: Negative for injury, rash, and discoloration, Psych: Negative for depression, anxiety, suicide ideation, homicidal ideation, and hallucinations, Allergy/Immunology: Negative for hives, rash, and allergies, Endocrine: Negative for neck swelling, polydipsia, polyuria, polyphagia, and marked weight changes, Hematologic/Lymphatic: Negative for swollen nodes, abnormal bleeding, and unusual bruising. 10:14 MS/extremity: Positive for decreased range of motion, of the left arm and left leg. Exam: 10:14 Constitutional: This is a well developed, well nourished patient who is awake, alert, ashley and in no acute distress. Head/Face: Normocephalic, atraumatic. Eyes: Pupils equal round and reactive to light, extra-ocular motions intact. Lids and lashes normal. Conjunctiva and sclera are non-icteric and not injected. Cornea within normal limits. Periorbital areas with no swelling, redness, or edema. ENT: Nares patent. No nasal discharge, no septal abnormalities noted. Tympanic membranes are normal and external auditory canals are clear. Oropharynx with no redness, swelling, or masses, exudates, or evidence of obstruction, uvula midline. Mucous membranes moist. Neck: Trachea midline, no thyromegaly or masses palpated, and no cervical lymphadenopathy. Supple, full range of motion without nuchal rigidity, or vertebral point tenderness. No Meningismus. Chest/axilla: Normal chest wall appearance and motion. Nontender with no deformity. No lesions are appreciated. Cardiovascular: Regular rate and rhythm with a normal S1 and S2. No gallops, murmurs, or rubs. Normal PMI, no JVD. No pulse deficits. Respiratory: Lungs have equal breath sounds bilaterally, clear to auscultation and percussion. No rales, rhonchi or wheezes noted. No increased work of breathing, no retractions or nasal flaring. Abdomen/GI: Soft, non-tender, with normal bowel sounds. No distension or tympany. No guarding or rebound. No evidence of tenderness throughout. Back: No spinal tenderness. No costovertebral tenderness. Full range of motion. Male : Normal genitalia with no discharge or lesions. Skin: Warm, dry with normal turgor. Normal color with no rashes, no lesions, and no evidence of cellulitis. Neuro: Awake and alert, GCS 15, oriented to person, place, time, and situation. Cranial nerves II-XII grossly intact. Motor strength 5/5 in all extremities. Sensory grossly intact. Cerebellar exam normal. Normal gait. Psych: Awake, alert, with orientation to person, place and time. Behavior, mood, and affect are within normal limits. 10:14 Musculoskeletal/extremity: Extremities: decreased ROM, ROM: full active range of motion, full passive range of motion, Circulation is intact in all extremities. Sensation intact. Compartment Syndrome exam of affected extremity: is normal. DVT Exam: No signs of deep vein thrombosis. no pain, no swelling, no tenderness, negative Homans' sign noted on exam, no appreciated bluish discoloration, no erythema, no increased warmth. 10:16 Radiologist reports: see report [facility] Vital Signs: 09:26 BP 154 / 92; Pulse 80; Resp 20; Temp 98.0; Pulse Ox 98% on R/A; Weight 191.87 kg; iw Height 5 ft. 11 in. (180.34 cm); Pain 0/10; 10:30 BP 135 / 75; Pulse 83; Resp 19 S; Pulse Ox 96% on R/A; jl7 11:30 BP 140 / 90; Pulse 76; Resp 16 S; Pulse Ox 99% on R/A; jl7 12:30 BP 146 / 89; Pulse 73; Resp 16 S; Pulse Ox 98% on R/A; jl7 09:26 Body Mass Index 59.00 (191.87 kg, 180.34 cm) NIH Stroke Scale Scores: 11:49 NIHSS Score: 0 ashley MDM: 09:46 Patient medically screened. [facility] 10:16 Data reviewed: vital signs, nurses notes, lab test result(s), EKG, radiologic studies, [facility] CT scan, MRI, plain films. 12/09 09:47 Order name: Basic Metabolic Panel; Complete Time: 11:25 [facility] 12/09 09:47 Order name: CBC with Diff; Complete Time: 11:25 [facility] 12/09 09:47 Order name: LFT's; Complete Time: 11:25 [facility] 12/09 09:47 Order name: Magnesium; Complete Time: 11:25 [facility] 12/09 09:47 Order name: NT PRO-BNP; Complete Time: 11:25 [facility] 12/09 09:47 Order name: PT-INR; Complete Time: 11:25 [facility] 12/09 09:47 Order name: Troponin (emerg Dept Use Only); Complete Time: 11:25 [facility] 12/09 09:47 Order name: XRAY Chest (1 view); Complete Time: 11:25 [facility] 12/09 09:47 Order name: CRP; Complete Time: 11:25 [facility] 12/09 09:47 Order name: Sed Rate; Complete Time: 11:25 [facility] 12/09 09:47 Order name: CT Head Brain wo Cont; Complete Time: 11:25 [facility] 12/09 10:07 Order name: MRI Stroke Protocol [facility] 12/09 11:24 Order name: Urine Dipstick--Ancillary (enter results); Complete Time: 11:46 12/09 12:38 Order name: Urine Drug Screen [facility] 12/09 09:47 Order name: EKG; Complete Time: 09:48 [facility] 12/09 09:47 Order name: Cardiac monitoring; Complete Time: 10:09 [facility] 12/09 09:47 Order name: EKG - Nurse/Tech; Complete Time: 10:30 [facility] 12/09 09:47 Order name: IV Saline Lock; Complete Time: 10:30 [facility] 12/09 09:47 Order name: Labs collected and sent; Complete Time: 10:30 [facility] 12/09 09:47 Order name: O2 Per Protocol; Complete Time: 09:51 [facility] 12/09 09:47 Order name: O2 Sat Monitoring; Complete Time: 09:51 [facility] 12/09 09:47 Order name: Urine Dipstick-Ancillary (obtain specimen); Complete Time: 12:37 [facility] 12/09 11:25 Order name: US Carotid Artery Bilateral [facility] 12/09 11:48 Order name: CT Head Angio [facility] 12/09 13:27 Order name: CT EDMS 12/09 13:44 Order name: US EDMS Administered Medications: 11:40 Drug: NS 0.9% 1000 ml Route: IV; Rate: 1 bolus; Site: left antecubital; jl7 12:37 Follow up: Response: No adverse reaction; IV Status: Completed infusion; IV Intake: jl7 1000ml 11:40 Drug: foLIC Acid 1 mg Route: IVPB; Site: left antecubital; jl7 12:37 Follow up: Response: No adverse reaction; IV Status: Completed infusion jl7 Disposition: 12/09/19 11:37 Hospitalization ordered by [facility] for Inpatient Admission. Preliminary diagnosis are Weakness, Obesity, unspecified. - Bed requested for Telemetry/MedSurg (Inpatient). - Status is Inpatient Admission. jl7 - Condition is Fair. - Problem is new. - Symptoms have improved. UTI on Admission? No NIH Stroke Scale - NIH Stroke Score Date: 12/09/2019 Time: 11:49 Total Score = 0 1a. Level of Consciousness (LOC) - 0(Alert) 1b. Level of Consciousness (LOC) (Year \T\ Age) - 0(Both) 1c. LOC Commands (Open \T\ Closes Eyes/Dowel Pin Worker) - 0(Both) 2. Best Gaze (Lateral Gaze Paresis) - 0(Normal) 3. Visual Field Loss - 0(No visual loss) 4. Facial Palsy - 0(Normal) 5a. Left Arm: Motor (10-second hold) - 0(No drift) 5b. Right Arm: Motor (10-second hold) - 0(No drift) 6a. Left Leg: Motor (5-second hold - always test supine) - 0(No drift) 6b. Right Leg: Motor (5-second hold - always test supine) - 0(No drift) 7. Limb Ataxia (finger/nose \T\ heel/olguin - test with eyes open) - 0(Absent) 8. Sensory Loss (pinprick arms/legs/face) - 0(Normal) 9. Best Language: Aphasia (description/naming/reading) - 0(No aphasia) 10. Dysarthria (speech clarity - read or repeat words) - 0(Normal) 11. Extinction and Inattention (visual/tactile/auditory/spatial/personal) - 0(No abnormality) Initials: ashley Signatures: Dispatcher [employer] EDMS Marco Gonzalez MD MD cha Williams, Irene, RN RN iw Leal, Jahala, RN RN jl7 Ana Maria Betancourt Corrections: (The following items were deleted from the chart) 11:41 11:37 Hospitalization Ordered by [facility] MORALES for Inpatient Admission. kala Preliminary diagnosis is Weakness; Obesity, unspecified. Bed requested for Telemetry/MedSurg (Inpatient). Status is Inpatient Admission. Condition is Fair. Problem is new. Symptoms have improved. UTI on Admission? No. ashley 13:23 11:41 12/09/2019 11:37 Hospitalization Ordered by [facility] MORALES for eb Inpatient Admission. Preliminary diagnosis is Weakness; Obesity, unspecified. Bed requested for Telemetry/MedSurg (Inpatient). Status is Inpatient Admission. Condition is Fair. Problem is new. Symptoms have improved. UTI on Admission? No. eb 14:18 13:23 12/09/2019 11:37 Hospitalization Ordered by [facility] MORALES for jl7 Inpatient Admission. Preliminary diagnosis is Weakness; Obesity, unspecified. Bed requested for Telemetry/MedSurg (Inpatient). Status is Inpatient Admission. Condition is Fair. Problem is new. Symptoms have improved. UTI on Admission? No. eb
--- NOTE | 2019-12-09 11:37 | ER ---
Nurse's Notes [facility] Name: Eze Wallace Age: 74 yrs Sex: Male : 1945 Arrival Date: 12/09/2019 Time: 09:04 Bed 4 Private MD: None, None Diagnosis: Weakness;Obesity, unspecified Presentation: 12/09 09:23 Presenting complaint: Patient states: left knee has been giving out on him and he has iw been falling and he noticed left hand and left side has been weak , was discharged from hospital on Dec 03 for a fall, weakness started before he was admitted to hospital. Transition of care: patient was not received from another setting of care. Onset of symptoms was October 2019. Risk Assessment: Do you want to hurt yourself or someone else? Patient reports no desire to harm self or others. Initial Sepsis Screen: Does the patient meet any 2 criteria? No. Patient's initial sepsis screen is negative. Does the patient have a suspected source of infection? No. Patient's initial sepsis screen is negative. Care prior to arrival: None. 09:23 Method Of Arrival: Wheelchair iw 09:23 Acuity: MIRIAM 3 iw Historical: - Allergies: 09:26 No Known Allergies; iw - Home Meds: 13:40 Aspirin Oral [Active]; atorvastatin Oral [Active]; carvedilol Oral [Active]; jl7 finasteride Oral [Active]; Hydrochlorothiazide Oral [Active]; lisinopril Oral [Active]; Omeprazole Oral [Active]; Potassium Chloride Oral [Active]; tamulosin [Active]; - PMHx: 09:26 BPH; High Cholesterol; Hypertension; Obesity; iw - PSHx: 09:26 None; iw - Immunization history:: Adult Immunizations up to date. - Social history:: Smoking status: Patient/guardian denies using tobacco. - Ebola Screening: : Patient negative for fever greater than or equal to 101.5 degrees Fahrenheit, and additional compatible Ebola Virus Disease symptoms Patient denies exposure to infectious person Patient denies travel to an Ebola-affected area in the 21 days before illness onset No symptoms or risks identified at this time. Screenin:30 Abuse screen: Denies threats or abuse. Denies injuries from another. Nutritional jl7 screening: No deficits noted. Tuberculosis screening: No symptoms or risk factors identified. Fall Risk Fall in past 12 months (25 points). Secondary diagnosis (15 points) impaired mobility, IV access (20 points). Ambulatory Aid- Crutches/Cane/Walker (15 pts). Gait- Weak (10 pts.). Mental Status- Overestimates/Forgets Limitations (15 pts.). Total Aquino Fall Scale indicates High Risk Score (45 or more points). Fall prevention measures have been instituted. Side Rails Up X 2 Placed Close to Nursing Station Frequent Obs/Assessments Occuring Family Present and informed to notify staff if the need to leave the bedside As available patient and family educated on Fall Prevention Program and Strategies. Assessment: 09:30 General: Appears in no apparent distress. uncomfortable, Behavior is cooperative, jl7 anxious. Pain: Denies pain. Neuro: Level of Consciousness is awake, alert, obeys commands, Oriented to person, place, time, situation, County Bailiff are equal bilaterally Moves all extremities. Weakness in left leg(s) Gait is unsteady, Speech is normal, Facial symmetry appears normal, Pupils are PERRLA, Reports weakness in left leg. Cardiovascular: Heart tones present Patient's skin is warm and dry. Respiratory: Airway is patent Respiratory effort is even, unlabored, Respiratory pattern is regular, symmetrical, Breath sounds are clear bilaterally. Derm: Skin is pink, warm \T\ dry. 10:30 Reassessment: Patient appears in no apparent distress at this time. No changes from jl7 previously documented assessment. Patient and/or family updated on plan of care and expected duration. Pain level reassessed. Patient is alert, oriented x 3, equal unlabored respirations, skin warm/dry/pink. 11:30 Reassessment: Patient appears in no apparent distress at this time. No changes from jl7 previously documented assessment. Patient and/or family updated on plan of care and expected duration. Pain level reassessed. Patient is alert, oriented x 3, equal unlabored respirations, skin warm/dry/pink. 12:30 Reassessment: Patient appears in no apparent distress at this time. No changes from jl7 previously documented assessment. Patient and/or family updated on plan of care and expected duration. Pain level reassessed. Patient is alert, oriented x 3, equal unlabored respirations, skin warm/dry/pink. 13:30 Reassessment: Patient appears in no apparent distress at this time. No changes from jl7 previously documented assessment. Patient and/or family updated on plan of care and expected duration. Pain level reassessed. Patient is alert, oriented x 3, equal unlabored respirations, skin warm/dry/pink. Vital Signs: 09:26 BP 154 / 92; Pulse 80; Resp 20; Temp 98.0; Pulse Ox 98% on R/A; Weight 191.87 kg; iw Height 5 ft. 11 in. (180.34 cm); Pain 0/10; 10:30 BP 135 / 75; Pulse 83; Resp 19 S; Pulse Ox 96% on R/A; jl7 11:30 BP 140 / 90; Pulse 76; Resp 16 S; Pulse Ox 99% on R/A; jl7 12:30 BP 146 / 89; Pulse 73; Resp 16 S; Pulse Ox 98% on R/A; jl7 09:26 Body Mass Index 59.00 (191.87 kg, 180.34 cm) iw NIH Stroke Scale Scores: 11:49 NIHSS Score: 0 ashley ED Course: 09:04 Patient arrived in ED. mr 09:05 None, None is Private Physician. mr 09:25 Triage completed. iw 09:30 Patient has correct armband on for positive identification. Placed in gown. Bed in low jl7 position. Call light in reach. Side rails up X2. monitoring and evaluation advisor on. Pulse ox on. NIBP on. 09:30 Arm band placed on right wrist. jl7 09:31 Wil Crain RN is Primary Nurse. jl7 09:46 Marco Gonzalez MD is Attending Physician. ashley 09:57 CT Head Brain wo Cont In Process Unspecified. EDMS 10:00 Initial lab(s) drawn, by la, sent to lab. Urine collected: clean catch specimen, clear. jl7 Inserted saline lock: 20 gauge in left antecubital area, using aseptic technique. Blood collected. 10:23 XRAY Chest (1 view) In Process Unspecified. EDMS 10:30 Warm blanket given. jl7 11:03 EKG done, by ED staff, reviewed by Marco Gonzalez MD. tc 11:15 Warm blanket given. jl7 11:15 Assisted with urinal. jl7 11:36 Prince Burk MD is Hospitalizing Provider. ashley 12:00 Assisted with urinal. jl7 13:15 Assisted with urinal. jl7 13:35 No provider procedures requiring assistance completed. Patient admitted, IV remains in jl7 place. intact, No redness/swelling at site. 13:45 Assisted with urinal. jl7 14:18 Assisted with urinal. jl7 Administered Medications: 11:40 Drug: NS 0.9% 1000 ml Route: IV; Rate: 1 bolus; Site: left antecubital; jl7 12:37 Follow up: Response: No adverse reaction; IV Status: Completed infusion; IV Intake: jl7 1000ml 11:40 Drug: foLIC Acid 1 mg Route: IVPB; Site: left antecubital; jl7 12:37 Follow up: Response: No adverse reaction; IV Status: Completed infusion jl7 Intake: 12:37 IV: 1000ml; Total: 1000ml. jl7 Outcome: 11:37 Decision to Hospitalize by Provider. [facility] 14:17 Admitted to Tele accompanied by tech, family with patient, via stretcher, room 431, [facility] with chart, Report called to SAMI Whitlock 14:17 Condition: stable 14:17 Discharge instructions given to patient, family, Instructed on the need for admit, Demonstrated understanding of instructions. 14:18 Patient left the ED. 7 NIH Stroke Scale - NIH Stroke Score Date: 12/09/2019 Time: 11:49 Total Score = 0 1a. Level of Consciousness (LOC) - 0(Alert) 1b. Level of Consciousness (LOC) (Year \T\ Age) - 0(Both) 1c. LOC Commands (Open \T\ Closes Eyes/Boot And Shoe Laborer) - 0(Both) 2. Best Gaze (Lateral Gaze Paresis) - 0(Normal) 3. Visual Field Loss - 0(No visual loss) 4. Facial Palsy - 0(Normal) 5a. Left Arm: Motor (10-second hold) - 0(No drift) 5b. Right Arm: Motor (10-second hold) - 0(No drift) 6a. Left Leg: Motor (5-second hold - always test supine) - 0(No drift) 6b. Right Leg: Motor (5-second hold - always test supine) - 0(No drift) 7. Limb Ataxia (finger/nose \T\ heel/olguin - test with eyes open) - 0(Absent) 8. Sensory Loss (pinprick arms/legs/face) - 0(Normal) 9. Best Language: Aphasia (description/naming/reading) - 0(No aphasia) 10. Dysarthria (speech clarity - read or repeat words) - 0(Normal) 11. Extinction and Inattention (visual/tactile/auditory/spatial/personal) - 0(No abnormality) Initials: ashley Signatures: Dispatcher [employer] EDMarco Fairchild MD MD cha Rivera, [facility] mr Maritza May, RN RN Irma Smith, waiter/waitress head EKG [facility] Wil Crain RN RN jl7 Corrections: (The following items were deleted from the chart) 13:38 10:30 Patient has correct armband on for positive identification. Placed in jl7 gown. Bed in low position. Call light in reach. Side rails up X2. jl7 13:38 10:30 monitoring and evaluation advisor on. Pulse ox on. NIBP on. jl7 jl7 13:39 11:00 Inserted saline lock: 20 gauge in left antecubital area, using aseptic jl7 technique. Blood collected. jl7 13:39 11:00 Initial lab(s) drawn, by me, sent to lab. Urine collected: clean catch jl7 specimen, clear, jl7
[2019-12-09 11:41] LABS: Urine Blood TRACE (NEG); Urine Glucose NEGATIVE (NEG); Urine Protein NEGATIVE (NEG); Urine Specific Gravity 1.025 (1.005-1.030); Urine pH 5.5 (5.0-7.0)
[2019-12-09 12:38] LABS: Barbiturates NEGATIVE (NEGATIVE); Benzodiazepines NEGATIVE (NEGATIVE); Cocaine NEGATIVE (NEGATIVE); METHAMPHETAM NEGATIVE (NEGATIVE); Methadone NEGATIVE (NEGATIVE); Opiates NEGATIVE (NEGATIVE); Phencyclidine NEGATIVE (NEGATIVE); THC Cannibis NEGATIVE (NEGATIVE)
[2019-12-09] MEDS: NA CHLORIDE 0.9% 1,000 ML IV SCH ×2 (13:00→22:21)
--- NOTE | 2019-12-09 13:22 | EKG ---
Test Date: 2019-12-09 Test Time: 10:20:48 Network Operations Analyst: LONNIE MEASUREMENT RESULTS: Intervals: Rate: 80 GA: 210 QRSD: 116 QT: 394 QTc: 454 [place]: P: 114 GA: 210 QRS: -12 T: 70 INTERPRETIVE STATEMENTS: Sinus rhythm with 1st degree AV block Otherwise normal ECG Compared to ECG 11/16/2019 23:16:04 First degree AV block now present T-wave abnormality no longer present Electronically Signed On 12-09-19 13:20:52 CHEMIC MANGLER by Roque Villafuerte
--- NOTE | 2019-12-09 13:25 | RAD REPORT ---
EXAM DESCRIPTION: CT - Head angio - 12/09/2019 1:04 pm CLINICAL HISTORY: WEAKNESSleft-sided extremity weakness TECHNIQUE: During dynamic enhancement using nonionic IV contrast, axial 1 millimeter thick images of the head were obtained. Sagittal and axial reconstruction images were generated using MIP technique and reviewed. All CT scans are performed using dose optimization technique as appropriate and may include automated exposure control or mA/KV adjustment according to patient size. COMPARISON: CT head same date FINDINGS: Left vertebral artery is dominant. Right vertebral artery is small as a normal variant. T he small size and large patient body habitus limit right vertebral artery assessment. Vertebrobasilar tortuosity is noted without acute component. From skullbase to the supraclinoid termination the inte rnal carotid artery show no suspicious finding. B bilateral middle cerebral artery distribution show no suspicious findings. There is proximal tortuosity of the anterior cerebral vasculature with no acu te finding. Bilateral posterior cerebral artery show no suspicious findings. Right posterior communic ating artery is present. A small anterior communicating artery is also evident. Major venous sinuses are patent. No aneurysm or vascular malformation identifiable. No stenosis, named branch occlusion, vasculitis or other significant vascular finding identifiable. IMPRESSION: Negative CT angio head examination for acute or significant finding.
--- NOTE | 2019-12-09 13:43 | RAD REPORT ---
EXAM DESCRIPTION: - CP - 12/09/2019 12:42 pm CLINICAL HISTORY: DIZZINESS, syncope, stroke-like symptoms COMPARISON: No comparisons TECHNIQUE: Real-time sonographic evaluation of bilateral carotid and vertebral systems was performed . Blake scale and Doppler interrogation were performed with waveform tracing bilaterally. FINDINGS: Normal high resistance waveforms are noted in both external carotid arteries. The common c arotid arteries and internal carotid arteries show normal low resistance waveforms. Plaquing changes are seen in the right carotid bulb without visual evidence for significant luminal n arrowing. No other significant plaquing changes identifiable. Peak systolic and end diastolic velocit y values and the ICA/CCA ratios are in the non-hemodynamically significant range. Antegrade flow seen in both vertebral arteries. Velocity values and ratios were recorded and are retained in the patient's imaging records. IMPRESSION: Right carotid bulb plaquing changes not causing significant luminal narrowing. No evidence of a hemodynamically significant stenosis.
[2019-12-09] MEDS ORDERED: [UNRECOGNIZED DRUG - REMARK] PO PRN (14:58)
[2019-12-09] MEDS ORDERED: ACETAMINOPHEN 500 MG TAB PO PRN (14:58)
--- NOTE | 2019-12-09 15:06 | P.HP ---
Certification for Inpatient Patient admitted to: Observation With expected LOS: <2 Midnights Patient will require the following post-hospital care: None Practitioner: I am a practitioner with admitting privileges, knowledge of patient current condition, hospital course, and medical plan of care. Services: Services provided to patient in accordance with Admission requirements found in Title 42 Section 412.3 of the Code of Federal Regulations Patient History Date of Service: 12/09/19 Reason for admission: Worsening left-sided weakness History of Present Illness: Patient is a 74-year-old male with morbid obesity, congestive heart failure, past TIA and BPH who presented the ER for worsening left-sided hemiparesis. The also the rest symptoms started the evening before the day of presentation or possibly earlier. As per daughter who was on the phone with the patient, patient was not speaking like himself. He speech was slightly slurred and mumbled. Daughter states that patient was also having some left sided weakness, which the patient denied at the time. Patient decided to wait it the following day to present to the ER as his symptoms progressed. He started having significant left-sided weakness in his leg especially. He arrived in the ER for assessment. CT head was within normal limits. NIH stroke scale was 0. Patient is on aspirin and Plavix at home. He is well-known to our neurologist Dr. Waller. He could not undergo MRI brain due to his body size. Allergies No Known Allergies Allergy (Verified 11/17/19 04:55) Home Medications: Aspirin Chewable [Aspirin Chewable*] 81 tab PO DAILY 11/17/19 Atorvastatin Calcium [Lipitor] 80 tab PO DAILY 11/17/19 Carvedilol [Coreg] 25 tab PO BID 11/17/19 Cetirizine HCl [Allergy Relief] 10 tab PO DAILY PRN 11/17/19 Finasteride [Proscar*] 5 tab PO DAILY 11/17/19 Lisinopril [Zestril] 40 tab PO DAILY 11/17/19 Omeprazole [Prilosec] 40 tab PO DAILY 11/17/19 Potassium Chloride 10 tab PO DAILY 11/17/19 Tamsulosin [Flomax*] 0.4 tab PO DAILY 11/17/19 hydroCHLOROthiazide [Hydrochlorothiazide] 25 tab PO DAILY 11/17/19 Clopidogrel Bisulfate [Plavix*] 75 mg PO DAILY tablet 11/19/19 predniSONE [Prednisone*] 20 mg PO DAILY tab 11/19/19 Acetaminophen 500 mg PO BID PRN 11/20/19 Finasteride 5 mg PO DAILY 11/20/19 Lisinopril [Zestril] 40 mg PO DAILY 11/20/19 - Past Medical/Surgical History Diabetic: Yes -: sleep apnea -: HTN -: HLD -: obesity -: lymphedema -: DM-borderline not on medication -: CHF - Social History Alcohol use: No CD- Drugs: No Caffeine use: No Physical Examination - Vital Signs Temperature: 98.0 F Blood Pressure: 146/89 Pulse: 73 Respirations: 16 - Physical Exam General: Alert, In no apparent distress, Cooperative HEENT: Atraumatic, Normocephalic, EOMI Neck: Supple Respiratory: Clear to auscultation bilaterally, Normal air movement Cardiovascular: Normal pulses, Regular rate/rhythm, Normal S1 S2 Gastrointestinal: Normal bowel sounds, Soft and benign, Non-distended Musculoskeletal: No clubbing, No swelling, No contractures, No erythema, No tenderness, Other (Bilateral extremity edema) Integumentary: Warmth Neurological: Normal strength at 5/5 x4 extr, Normal tone, Abnormal speech - Studies Laboratory Data (last 24 hrs) 12/09/19 10:25: PT 13.0 H, INR 1.11 12/09/19 10:25: WBC 4.2 L D, Hgb 11.0 L, Hct 33.4 L, Plt Count 178 D 12/09/19 10:25: Sodium 144, Potassium 3.7, BUN 17, Creatinine 1.12, Glucose 112 H, Magnesium 2.1, Total Bilirubin 0.7, AST 22, ALT 26, Alkaline Phosphatase 76 Assessment and Plan - Problems (Diagnosis) (1) TIA (transient ischemic attack) Current Visit: Yes Status: Acute (2) BPH (benign prostatic hyperplasia) Current Visit: Yes Status: Acute (3) Acute diastolic heart failure Current Visit: No Status: Acute (4) Arthritis Current Visit: No Status: Acute (5) Congestive heart failure Current Visit: No Status: Acute Qualifiers: Heart failure type: systolic Heart failure chronicity: acute Qualified Code(s): I50.21 - Acute systolic (congestive) heart failure (6) Hypertension Current Visit: No Status: Acute (7) Lymphedema Current Visit: No Status: Acute (8) Morbid obesity with BMI of 60.0-69.9, adult Current Visit: No Status: Acute - Advance Directives Does patient have a Living Will: Yes Does patient have a Durable POA for Healthcare: No Physician Review Additional Text: IMPRESSION: Patient is a 74-year-old male with morbid obesity, hypertension , diastolic heart failure and past TIA episodes who presented to the ER acutely worsening left-sided hemiparesis. The symptoms appear to have resolved on arrival. NIH stroke scale was 0. CT head without evidence of acute intracranial abnormalities. Neurology has been consulted. MRI brain in not ordered since patient cannot fit into the machine. Head CTA and carotid Doppler negative. 1. TIA 2. Hypertension 3. Morbid obesity 4. Chronic diastolic heart failure 5. BPH 6. Hyperlipidemia Plan: 1. Admit with telemetry 2. Resume home dose of aspirin and Plavix. 3. Okay to maintain blood pressure less than 140 mm Hg given negative head CTA and carotid Doppler 4. Repeat CT head in 24 hr to assess progress 5. 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 Follow-up Neurology recommendation 7. Recheck lipid panel
[2019-12-09] MEDS ORDERED: CETIRIZINE HCL 5 MG TABLET PO PRN (15:18)
[2019-12-09 15:20] VITALS: BMI 59.0
[2019-12-09] MEDS: INSULIN -REGULAR HUMAN 50 UNIT/0.5 ML ML SQ SCH ×2 (16:30→21:00)
[2019-12-09] MEDS: carvediloL 25 MG TAB PO SCH (21:30)
[2019-12-10 06:02] LABS: Absolute Lymphocytes (CBC) 0.6 K/uL (0.7-4.9); Basophils % 0.4 % (0-1.3); Hematocrit 29.6 % (39.6-49.0); Lymphocytes % 16.6 % (15.3-44.8); MPV 8.5 fL (7.6-11.3)
[2019-12-10 06:20] LABS: Protime INR 1.15
[2019-12-10 06:28] LABS: BUN Blood Urea Nitrogen 13 mg/dL (7-18); Bicarbonate 28 mmol/L (21-32); Creatine Phosphokinase 138 U/L (39-308); Glucose Level 94 mg/dL (74-106); HDL Cholesterol 49 mg/dL (40-60); LDL Cholesterol, Calculated 33 (<130); Potassium 3.7 mmol/L (3.5-5.1); Sodium Level 142 mmol/L (136-145)
[2019-12-10] MEDS ORDERED: PANTOPRAZOLE 40MG TABLET PO SCH (07:30)
[2019-12-10] MEDS: INSULIN -REGULAR HUMAN 50 UNIT/0.5 ML ML SQ SCH ×3 (07:30→16:30)
[2019-12-10] MEDS ORDERED: ASPIRIN 81 MG CHEWABLE TABLET PO SCH (09:00)
[2019-12-10] MEDS ORDERED: FINASTERIDE 5 MG TAB PO SCH (09:00)
[2019-12-10] MEDS ORDERED: OMEPRAZOLE PO SCH (09:00)
[2019-12-10] MEDS ORDERED: CLOPIDOGREL 75 MG TABLET PO SCH ×2 (09:00)
[2019-12-10] MEDS ORDERED: ENOXAPARIN 40 MG/0.4 ML SQ SCH (09:00)
[2019-12-10] MEDS ORDERED: lisinopriL 20 MG TAB PO SCH (09:00)
[2019-12-10] MEDS ORDERED: TAMSULOSIN 0.4 MG SR CAP PO SCH (09:00)
[2019-12-10] MEDS ORDERED: ASPIRIN EC 81 MG TAB PO SCH (09:00)
[2019-12-10] MEDS ORDERED: ATORVASTATIN 80 MG TAB PO SCH (09:00)
[2019-12-10] MEDS ORDERED: CLOPIDOGREL 75 MG TABLET ONE (09:11)
[2019-12-10] MEDS ORDERED: FINASTERIDE 5 MG TAB ONE (09:12)
[2019-12-10] MEDS ORDERED: carvediloL 25 MG TAB ONE (09:12)
[2019-12-10] MEDS ORDERED: TAMSULOSIN 0.4 MG SR CAP ONE (09:12)
[2019-12-10] MEDS ORDERED: ASPIRIN 81 MG CHEWABLE TABLET ONE (09:12)
[2019-12-10] MEDS ORDERED: lisinopriL 20 MG TAB ONE (09:12)
[2019-12-10] MEDS ORDERED: ENOXAPARIN 40 MG/0.4 ML SQ ONE (09:13)
[2019-12-10] MEDS ORDERED: ATORVASTATIN 80 MG TAB ONE (09:13)
[2019-12-10] MEDS ORDERED: PANTOPRAZOLE 40MG TABLET PO ONE (09:13)
[2019-12-10] MEDS: carvediloL 25 MG TAB PO SCH (09:24)
--- NOTE | 2019-12-10 09:43 | RAD REPORT ---
EXAM DESCRIPTION: CT - [id number] - 12/10/2019 9:03 am CLINICAL HISTORY: CVA, left-sided weakness COMPARISON: CT head December 09 TECHNIQUE: Axial 5 mm thick images of the head were obtained. Axial 2 mm thick images of the cervic al spine were obtained with sagittal and coronal reconstruction images generated and reviewed. All CT scans are performed using dose optimization technique as appropriate and may include automated exposure control or mA/KV adjustment according to patient size. FINDINGS: No intracranial hemorrhage is developed. No mass, edema or shift of midline structures. No cortical e brittany or sulcal effacement seen. No definitive infarction changes evident. Mild volume loss changes ar e stable. Ventricles are stable. Mastoid air cells and paranasal sinuses are clear. No globe or orbit abnormality seen. All Cervical body height and alignment are normal. Disc space narrowing at C5-6, C6-7 and C7-T1. Detail i n the lower cervical spine is limited due to the large body habitus. No fracture or acute bony abnorm ality. Central canal detail is inherently limited. Facet joint degenerative changes are present. Righ t foraminal encroachment present at C3-4 and bilaterally at C4-5. No paraspinal mass or hematoma. IMPRESSION: No intracranial hemorrhage has developed and an acute infarction is not identifiable at this time. No new intracranial finding seen. Cervical spine degenerative changes are present but no fracture or acute cervical finding identifiabl e. Negative CT cervical spine examination for acute or significant finding.
[2019-12-10 13:07] VITALS: O2SAT 97
--- NOTE | 2019-12-10 15:17 | P.DS ---
Admission Date: 12/09/19 Discharge Date: 12/10/19 Disposition: ROUTINE DISCHARGE Discharge Condition: GOOD Reason for Admission: Worsening left-sided weakness - Problems (1) TIA (transient ischemic attack) Current Visit: Yes Status: Acute (2) BPH (benign prostatic hyperplasia) Current Visit: Yes Status: Acute (3) Acute diastolic heart failure Current Visit: No Status: Acute (4) Arthritis Current Visit: No Status: Acute (5) Congestive heart failure Current Visit: No Status: Acute Qualifiers: Heart failure type: systolic Heart failure chronicity: acute Qualified Code(s): I50.21 - Acute systolic (congestive) heart failure (6) Hypertension Current Visit: No Status: Acute (7) Lymphedema Current Visit: No Status: Acute (8) Morbid obesity with BMI of 60.0-69.9, adult Current Visit: No Status: Acute Brief History of Present Illness: Patient is a 74-year-old male with morbid obesity, congestive heart failure, past TIA and BPH who presented the ER for worsening left-sided hemiparesis. The also the rest symptoms started the evening before the day of presentation or possibly earlier. As per daughter who was on the phone with the patient, patient was not speaking like himself. He speech was slightly slurred and mumbled. Daughter states that patient was also having some left sided weakness, which the patient denied at the time. Patient decided to wait it the following day to present to the ER as his symptoms progressed. He started having significant left-sided weakness in his leg especially. He arrived in the ER for assessment. CT head was within normal limits. NIH stroke scale was 0. Patient is on aspirin and Plavix at home. He is well-known to our neurologist Dr. Waller. He could not undergo MRI brain due to his body size. Hospital Course: Patient was admitted for CVA workup. The repeat CAT scan was done 24 hr after presentation. Stable findings, no new evidence of ischemia. Carotid Doppler was negative. His hospital course has been unremarkable. He was able to ambulate without assistance. His functional status returned to baseline. Patient was also visited by Neurology during this admission. He will be on dual anti-platelet therapy. I spent some time rate air in the need for the patient to presents immediately after the onset of neurologic symptoms instead of waiting to come several hrs later. Daughter was at bedside Vital Signs/Physical Exam: Temp Pulse Resp BP Pulse Ox 96.6 F L 54 18 159/83 H 100 12/10/19 12:00 12/10/19 12:00 12/10/19 12:00 12/10/19 12:00 12/10/19 12:00 General: Alert, In no apparent distress, Cooperative HEENT: Atraumatic, Normocephalic, EOMI Neck: Supple Respiratory: Clear to auscultation bilaterally, Normal air movement Cardiovascular: No edema, Normal pulses, Regular rate/rhythm, Other (Bilateral lymphedema), Edema Gastrointestinal: Normal bowel sounds, Soft and benign, Non-distended Musculoskeletal: No clubbing, No contractures, No erythema, No tenderness Integumentary: Warmth Neurological: Normal speech, Normal affect Laboratory Data at Discharge: WBC 3.9 K/uL (4.3-10.9) L 12/10/19 05:39 Hgb 9.9 g/dL (13.6-17.9) L 12/10/19 05:39 Hct 29.6 % (39.6-49.0) L 12/10/19 05:39 Plt Count 155 K/uL (152-406) 12/10/19 05:39 PT 13.5 SECONDS (9.5-12.5) H 12/10/19 05:39 INR 1.15 12/10/19 05:39 Sodium 142 mmol/L (136-145) 12/10/19 05:39 Potassium 3.7 mmol/L (3.5-5.1) 12/10/19 05:39 BUN 13 mg/dL (7-18) 12/10/19 05:39 Creatinine 0.95 mg/dL (0.55-1.3) 12/10/19 05:39 Glucose 94 mg/dL (74-106) 12/10/19 05:39 Magnesium 2.1 mg/dL (1.8-2.4) 12/09/19 10:25 Total Bilirubin 0.7 mg/dL (0.2-1.0) 12/09/19 10:25 AST 22 U/L (15-37) 12/09/19 10:25 ALT 26 U/L (12-78) 12/09/19 10:25 Alkaline Phosphatase 76 U/L (45-117) 12/09/19 10:25 Triglycerides 38 mg/dL (<150) 12/10/19 05:39 Cholesterol 90 mg/dL (<200) 12/10/19 05:39 HDL Cholesterol 49 mg/dL (40-60) 12/10/19 05:39 Cholesterol/HDL Ratio 1.84 12/10/19 05:39 Home Medications: Aspirin Chewable [Aspirin Chewable*] 81 tab PO DAILY 11/17/19 Atorvastatin Calcium [Lipitor] 80 tab PO DAILY 11/17/19 Carvedilol [Coreg] 25 tab PO BID 11/17/19 Cetirizine HCl [Allergy Relief] 10 tab PO DAILY PRN 11/17/19 Finasteride [Proscar*] 5 tab PO DAILY 11/17/19 Omeprazole [Prilosec] 40 tab PO DAILY 11/17/19 Potassium Chloride 10 tab PO DAILY 11/17/19 Tamsulosin [Flomax*] 0.4 tab PO DAILY 11/17/19 hydroCHLOROthiazide [Hydrochlorothiazide] 25 tab PO DAILY 11/17/19 Clopidogrel Bisulfate [Plavix*] 75 mg PO DAILY tablet 11/19/19 predniSONE [Prednisone*] 20 mg PO DAILY tab 11/19/19 Acetaminophen 500 mg PO BID PRN 11/20/19 Lisinopril [Zestril] 40 mg PO DAILY 11/20/19 Finasteride [Proscar*] 5 mg PO DAILY tab 12/10/19 Diet: AHA Activity: Ad alondra
[2019-12-10] MEDS: NA CHLORIDE 0.9% 1,000 ML IV SCH (15:40)
[2019-12-10 17:20] VITALS: BP 142/94; TEMP 97.4
--- NOTE | 2019-12-11 02:20 | CON ---
Reason For Consultation: Possible stroke. History Of Present Illness: Mr. Wallace is a 74-year-old right-handed patient who w as just discharged from the hospital in the rehabilitation unit. He had physical and occupational th erapy for debility. He did not have a stroke at admission. After his discharge about 5 days prior t o his current admission, he actually was doing well until yesterday when he reportedly had some left- sided weakness in the arm and leg, however, on further questioning the patient's daughter actually to day he changed the story once he got to the hospital and said it was left knee pain. In any event he had head CT scan done in the emergency room which was negative. CT angiogram did not show any abnor malities. He was given IV fluids in the emergency room. Subsequent repeat CT scan showed no evidenc e of any interval change. Patient is morbidly obese and unable to fit in the MRI as his weight is 42 3 pounds. He has blood work that was unremarkable, except for slightly low white blood cell count of 4.2, hemoglobin 11, platelets unremarkable. Chemistries were essentially unremarkable. Glucose ran ge 94 to 118, LDL cholesterol was 33, HDL cholesterol 49, total cholesterol 90. Thyroid-stimulating hormone level normal. Calcium was slightly low. Urine tox screen was negative. Past Medical History: As indicated in addition to congestive heart failure benign prostatic hypertro phy and prior transient ischemic attack. Sleep apnea with morbid obesity. Allergies: NO KNOWN DRUG ALLERGIES. Medications: Aspirin 81 mg daily, Lipitor 80 mg at bedtime, Coreg 25 mg twice daily, cetirizine 10 m g daily, Proscar 5 mg daily, Zestril 40 mg daily, Prilosec 40 mg daily, potassium 10 mEq daily, Floma x 0.4 mg at night, hydrochlorothiazide 25 mg daily, Plavix 75 mg daily, prednisone 10 mg daily, and T ylenol 500 mg as needed, along with finasteride 5 mg daily, lisinopril 40 mg daily. Social History: No alcohol, tobacco, or IV drug use. Review of Systems: No recent fevers, chills, nausea, vomiting, myalgias, arthralgias. Physical Examination: Vital Signs: Blood pressure 142/94, pulse 54 up to 102, respiratory rate 16 to 20, temperature 97.4, oxygen saturation 97% room air, weight 423 pounds, height 5 feet 11 inches, BMI 59. General: Mr. Wallace is sitting in a chair beside his bed. He is in no acute distress. HEENT: He is normocephalic, atraumatic. Sclerae anicteric. Oropharynx is moist and pink. Neck: Supple. Chest: Clear. Heart: Regular. Abdomen: Soft. Extremities: Show no edema, cyanosis, or clubbing, except on the right lower extremity there is some edema noted and actually some also on the left lower extremity. Neurologic: He is alert and oriented to situation, place, and person. He has no focal cranial nerve deficits. No focal motor coordination, sensory or gait deficit in his extremities. He does have ac tually an antalgic gait because of knee pain. Ambulates with assistive device. Assessment: Mr. Wallace is a 74-year-old patient with arthritic knee pain. He has morbid obesity, w hich is a contributing factor. He was recently admitted to the hospital with debility and does not h ave a stroke by exam and by head CT scan by 24 hours. He has multiple comorbid conditions. Plan: Patient may be discharged home to continue with his physical and occupational therapy, which i s on my home health. He should continue with all medications as indicated. Follow up in Dr. Elizabeth pennnigton's office in 1 month after discharge. VENKAT Voice ID: [id number] Report ID: [id number]
== END 2019-12-10 17:38 | disposition home or self-care (01) ==
LOC: ER 09:01 → ERHOLD 12:06 → 4TH 13:56
PROVIDERS: ADMIT Internal Medicine; ATTEND Internal Medicine
DX: G45.9 Transient cerebral ischemic attack, unspecified (principal); E66.01 Morbid (severe) obesity due to excess calories; Z68.43 Body mass index [BMI] 50.0-59.9, adult; N40.0 Benign prostatic hyperplasia without lower urinary tract symptoms; I11.0 Hypertensive heart disease with heart failure; I50.32 Chronic diastolic (congestive) heart failure; I89.0 Lymphedema, not elsewhere classified; E78.5 Hyperlipidemia, unspecified; Z86.73 Personal history of transient ischemic attack (TIA), and cerebral infarction without residual deficits
CPT/HCPCS: 96365; 93005; 85025 ×2; 80048 ×2; 36415; 83735; 82550; 85610 ×2; 80061; 82947 ×5; 80076; 80307 ×8; 85652; 84443; 81003; 84484; 83880; 86140; 70450 ×2; 72125; 70496; 71045; 93880; 92610; 97116; 97161; 99285; Q9967; J1650; J7030; G0378 ×3

== ENCOUNTER 2019-12-13 17:08 | Emergency (ER) | payer OTHER ==
[2019-12-13 17:53] LABS: Absolute Lymphocytes (CBC) 0.5 K/uL (0.7-4.9); Basophils % 0.4 % (0-1.3); Hematocrit 33.9 % (39.6-49.0); Lymphocytes % 6.5 % (15.3-44.8); MPV 8.3 fL (7.6-11.3); RBC Red Blood Cell Count 3.98 M/uL (4.33-5.43)
[2019-12-13 18:01] LABS: Protime INR 1.19
[2019-12-13 19:22] LABS: ALT/SGPT 34 U/L (12-78); AST/SGOT 35 U/L (15-37); Albumin 3.5 g/dL (3.4-5.0); Alkaline Phosphatase 81 U/L (45-117); BUN Blood Urea Nitrogen 22 mg/dL (7-18); Bicarbonate 27 mmol/L (21-32); Bilirubin Direct 0.4 mg/dL (0-0.2); Bilirubin Total 1.4 mg/dL (0.2-1.0); Glucose Level 95 mg/dL (74-106); Potassium 4.1 mmol/L (3.5-5.1); Sodium Level 142 mmol/L (136-145)
[2019-12-13] MEDS ORDERED: NA CHLORIDE 0.9% 1,000 ML ONE (20:07)
--- NOTE | 2019-12-13 20:51 | ER ---
Nurse's Notes [facility] Name: Eze Wallace Age: 74 yrs Sex: Male : 1945 Arrival Date: 12/13/2019 Time: 17:13 Bed 5 Private MD: Diagnosis: Altered mental status, unspecified Presentation: 12/13 17:13 Presenting complaint: EMS states: Toned out x 4 for lift assist in the last 2 days, all hb previous visits pt was AO/4, this visit pt was minimally responsive in chair, pinpoint pupils, R 30s, SpO2 80s on RA, ETCO2 38, BGL 98. 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 Took oxycodone x 8 per bystander on scene. Transition of care: patient was not received from another setting of care. Onset of symptoms was December 13, 2019. Risk Assessment: Do you want to hurt yourself or someone else? Patient reports no desire to harm self or others. Care prior to arrival: IV initiated. 20 GA, in the left forearm. 17:13 Acuity: MIRIAM 2 hb 17:13 Method Of Arrival: EMS: [facility] hb 17:15 Initial Sepsis Screen: Does the patient meet any 2 criteria? RR > 20 per min. No. sv Patient's initial sepsis screen is negative. Does the patient have a suspected source of infection? No. Patient's initial sepsis screen is negative. Historical: - Allergies: 17:17 No Known Allergies; hb - PMHx: 18:31 BPH; High Cholesterol; Hypertension; Obesity; sv - PSHx: 18:31 None; sv - Immunization history:: Adult Immunizations up to date. - Social history:: Smoking status: Patient/guardian denies using tobacco. - Ebola Screening: : No symptoms or risks identified at this time. Screenin:00 Abuse screen: Denies threats or abuse. Denies injuries from another. Nutritional hb screening: No deficits noted. Tuberculosis screening: No symptoms or risk factors identified. Fall Risk Total Aquino Fall Scale indicates High Risk Score (45 or more points). Fall prevention measures have been instituted. Side Rails Up X 2 Frequent Obs/Assessments Occuring As available patient and family educated on Fall Prevention Program and Strategies. Assessment: 17:15 General: Appears in no apparent distress. Behavior is flat. Pain: Unable to use pain hb scale. FLACC scale score is 0 out of 10. Neuro: Level of Consciousness is obtunded, Oriented to person. Cardiovascular: Heart tones S1 S2 present Capillary refill < 3 seconds Patient's skin is warm and dry. Respiratory: Airway is patent Respiratory effort is even, unlabored, Respiratory pattern is tachypnea Breath sounds are clear bilaterally. GI: No signs and/or symptoms were reported involving the gastrointestinal system. : No signs and/or symptoms were reported regarding the genitourinary system. EENT: No signs and/or symptoms were reported regarding the EENT system. Derm: Skin is intact, is healthy with good turgor. Musculoskeletal: No signs and/or symptoms reported regarding the musculoskeletal system. 18:00 Reassessment: Improved from previous assessment, lethargic, answering questions hb appropriately. VSS. 18:32 Reassessment: Patient appears in no apparent distress at this time. Pt appears asleep sv at this time, snoring, respirations even and unlabored. Pt able to be roused with verbal stumuli. 19:12 General: Appears in no apparent distress. Behavior is drowsy. Pain: Denies pain. Neuro: ea Level of Consciousness is responds to loud verbal stimulus. Oriented to person. Cardiovascular: Patient's skin is warm and dry. Respiratory: Airway is patent Respiratory effort is even, unlabored, Respiratory pattern is tachypnea. Derm: Skin is intact, is healthy with good turgor. 20:35 Reassessment: Attempted to straight cath pt with no urine output. Tara care performed, ea pt tolerated well. 20:57 Reassessment: Pt returned from CT. Pt resting with eyes closed, respirations even and ea unlabored. Chest expansion even and unlabored, pt remains tachypneic. 21:23 Reassessment: Patient and/or family updated on plan of care and expected duration. Pain ea level reassessed. Pt resting with eyes closed, respirations even and unlabored. 12/14 00:00 Reassessment: Pt groggy, oriented x 3. Respirations even and unlabored. Chest ea expansions even and symmetrical. Tara care performed. Pt tolerating well. 00:34 Reassessment: Patient and/or family updated on plan of care and expected duration. Pain ea level reassessed. Pt groggy, oriented x 3. Respirations even and unlabored. Chest expansions even and symmetrical. No s/s of pain or discomfort noted at this time. EMS at facility for transfer. Pt left ED via stretcher, per EMS pt tolerating well. Vital Signs: 12/13 17:16 BP 156 / 117; Pulse 98; Resp 30; Temp 98.3; Pulse Ox 100% on 3 lpm NC; Pain 0/10; hb 18:06 BP 185 / 95; Pulse 95; Resp 24; Pulse Ox 98% ; sv 18:30 BP 168 / 87; Pulse 90; Resp 22; Pulse Ox 99% ; sv 19:24 BP 160 / 87; Pulse 98; Resp 21; Pulse Ox 98% on R/A; ea 20:00 BP 159 / 90; Pulse 92; Resp 18; Pulse Ox 100% ; ea 21:04 BP 157 / 74; Pulse 90; Resp 22; Temp 98; Pulse Ox 100% ; ea 22:00 BP 117 / 71; Pulse 97; Resp 20; Pulse Ox 100% on R/A; ea 23:30 BP 135 / 79; Pulse 98; Resp 19; Temp 99; Pulse Ox 100% ; ea [place] Coma Score: 18:32 Eye Response: to voice(3). Verbal Response: confused(4). Motor Response: localizes jr8 pain(5). Total: 12. ED Course: 17:13 Patient arrived in ED. hb 17:13 Maintain EMS IV. Dressing intact. Good blood return noted. Site clean \T\ dry. Gauge \T\ sv site: 20G L AC. 17:15 Patient has correct armband on for positive identification. Bed in low position. Call sv light in reach. Side rails up X2. chute tapper on. Pulse ox on. NIBP on. Door closed. Head of bed elevated. 17:16 Triage completed. hb 17:17 Masood Hernandes PA is PHCP. jr8 17:17 Rob Calvo MD is Attending Physician. jr8 17:17 Arm band placed on. hb 17:38 Mary Ellen Ward, SAMI is Primary Nurse. sv 18:06 EKG done, by ED staff, reviewed by Masood DORANTES. sv 19:07 Primary Nurse role handed off by Mary Ellen Ward, SAMI sv 19:12 Ayala Grace, SAMI is Primary Nurse. ea 20:31 Straight cath inserted, using sterile technique, no urine output. bb 21:09 CT Head Brain wo Cont In Process Unspecified. EDMS 12/14 00:15 No provider procedures requiring assistance completed. Patient transferred, IV remains ea in place. Administered Medications: 12/13 17:15 Drug: NARcan 0.5 mg Route: IVP; Site: left antecubital; sv 17:30 Follow up: Response: No adverse reaction sv 20:32 Drug: NS 0.9% 1000 ml Route: IV; Rate: 1000 ml; Site: left antecubital; bb3 21:33 Follow up: Response: No adverse reaction; IV Status: Completed infusion; IV Intake: ea 1000ml Intake: 21:33 IV: 1000ml; Total: 1000ml. ea Outcome: 20:50 ER care complete, transfer ordered by MD. lee 12/14 00:16 Transferred by ground EMS to [facility] Transfer form completed. ea Condition: stable Instructed on the need for transfer. 00:37 Patient left the ED. ea Signatures: Dispatcher [employer] Mary Ellen Stuart, RN Bel Lowery, RN RN Masood Park PA PA jr8 Courtney Reaves RN Ayala Williamson, RN RN Caren Medrano bb3 Corrections: (The following items were deleted from the chart) 00:12/13 21:04 BP 157 / 74; Pulse 90bpm; Resp 22bpm; Pulse Ox 100%; ea ea 12/14 00:12/13 22:00 BP 117 / 71; Pulse 97bpm; Resp 18bpm; Pulse Ox 100% RA; ea ea 12/14 00:12/13 23:30 BP 135 / 79; Pulse 98bpm; Resp 18bpm; Pulse Ox 100%; Temp 99F; ea ea
--- NOTE | 2019-12-13 20:51 | EDPHYS ---
Physician Documentation [facility] Name: Eze Wallace Age: 74 yrs Sex: Male : 1945 Arrival Date: 12/13/2019 Time: 17:13 Bed 5 Private MD: ED Physician oRb Calvo HPI: 12/13 18:32 This 74 yrs old Black Male presents to ER via EMS with complaints of Altered Mental jr8 Status. 18:32 Onset: The symptoms/episode began/occurred acutely, today. Possible causes: drug use, jr8 narcotics. Associated signs and symptoms: Pertinent positives: confusion, weakness. Current symptoms: In the emergency department the patient's symptoms are unchanged from the initial presentation. Patient's baseline: Neuro: alert and fully oriented, Motor: no deficits, Ambulation: walks with assist only, uses walker, Speech: normal. It is unknown whether or not the patient has had similar symptoms in the past. It is unknown whether or not the patient has recently seen a physician. Patient admitted to EMS that his pain in his knees were so bad today that he took 8 of his oxycodone within short period of time to help the pain. EMS stated that they have had multiple lift assists over the past couple of days. Was acting normal at that time. Patient slurring speech upon arrival with pinpoint pupils and decreased LOC . Historical: - Allergies: 17:17 No Known Allergies; hb - PMHx: 18:31 BPH; High Cholesterol; Hypertension; Obesity; sv - PSHx: 18:31 None; sv - Immunization history:: Adult Immunizations up to date. - Social history:: Smoking status: Patient/guardian denies using tobacco. - Ebola Screening: : No symptoms or risks identified at this time. ROS: 18:32 Unable to obtain ROS due to altered mental status. jr8 Exam: 18:32 Eyes: Pupils equal , pinpoint, sluggish. extra-ocular motions intact. Lids and lashes jr8 normal. Conjunctiva and sclera are non-icteric and not injected. Cornea within normal limits. Periorbital areas with no swelling, redness, or edema. ENT: Nares patent. No nasal discharge, no septal abnormalities noted. Tympanic membranes are normal and external auditory canals are clear. Oropharynx with no redness, swelling, or masses, exudates, or evidence of obstruction, uvula midline. Mucous membranes moist. Neck: Trachea midline, no thyromegaly or masses palpated, and no cervical lymphadenopathy. Supple, full range of motion without nuchal rigidity, or vertebral point tenderness. No Meningismus. Cardiovascular: Regular rate and rhythm with a normal S1 and S2. No gallops, murmurs, or rubs. Normal PMI, no JVD. No pulse deficits. Abdomen/GI: Soft, non-tender, with normal bowel sounds. No distension or tympany. No guarding or rebound. No evidence of tenderness throughout. Back: No spinal tenderness. No costovertebral tenderness. Full range of motion. Skin: Warm, dry with normal turgor. Normal color with no rashes, no lesions, and no evidence of cellulitis. MS/ Extremity: Pulses equal, no cyanosis. Neurovascular intact. Full, normal range of motion. 18:32 Respiratory: the patient does not display signs of respiratory distress, Respirations: tachypnea, that is mild, Breath sounds: are clear throughout, no bronchial sounds, no decreased breath sounds, no rales, rhonchi, no stridor, no wheezing. 18:32 Neuro: Orientation: to person, place, Mentation: able to follow commands, slow to respond, confused, Memory: immediate memory is intact, Cranial nerves: CN I not tested, CN II- XII are normal as tested, extraocular movements are intact, Speech is slowed, slurred, Tongue strength is normal, Motor: moves all fours, Sensation: no obvious gross deficits, Gait: not tested. seizure activity, is not displayed by the patient. Vital Signs: 17:16 BP 156 / 117; Pulse 98; Resp 30; Temp 98.3; Pulse Ox 100% on 3 lpm NC; Pain 0/10; hb 18:06 BP 185 / 95; Pulse 95; Resp 24; Pulse Ox 98% ; sv 18:30 BP 168 / 87; Pulse 90; Resp 22; Pulse Ox 99% ; sv 19:24 BP 160 / 87; Pulse 98; Resp 21; Pulse Ox 98% on R/A; ea 20:00 BP 159 / 90; Pulse 92; Resp 18; Pulse Ox 100% ; ea 21:04 BP 157 / 74; Pulse 90; Resp 22; Temp 98; Pulse Ox 100% ; ea 22:00 BP 117 / 71; Pulse 97; Resp 20; Pulse Ox 100% on R/A; ea 23:30 BP 135 / 79; Pulse 98; Resp 19; Temp 99; Pulse Ox 100% ; ea [place] Coma Score: 18:32 Eye Response: to voice(3). Verbal Response: confused(4). Motor Response: localizes jr8 pain(5). Total: 12. MDM: 17:18 Patient medically screened. jr8 20:47 Data reviewed: vital signs, nurses notes, lab test result(s), EKG, radiologic studies, jr8 CT scan, plain films. Data interpreted: Pulse oximetry: on room air is 98 %. Interpretation: normal. Counseling: I had a detailed discussion with the patient and/or guardian regarding: the historical points, exam findings, and any diagnostic results supporting the discharge/admit diagnosis, lab results, radiology results, the need to transfer to another facility. ED course: Patient would like patient transferred to [facility] for further evaluation. I talked to a Dr. Killian at the [facility] who accepted patient . 20:50 ED course: Straight cath unsuccessful do to body habitus and leg mass . 12/13 17:19 Order name: Acetaminophen; Complete Time: 19:30 12/13 17:19 Order name: Basic Metabolic Panel; Complete Time: 19:30 12/13 17:19 Order name: CBC with Diff; Complete Time: 18:03 12/13 17:19 Order name: ETOH Level; Complete Time: 18:36 12/13 17:19 Order name: Hepatic Function; Complete Time: 19:30 12/13 17:19 Order name: PT-INR; Complete Time: 18:36 12/13 17:19 Order name: Ptt, Activated; Complete Time: 18:36 12/13 17:19 Order name: Salicylate; Complete Time: 19:30 12/13 20:20 Order name: CT Head Brain wo Cont 12/13 20:27 Order name: ABG; Complete Time: 21:35 12/13 17:19 Order name: EKG; Complete Time: 17:20 12/13 17:19 Order name: EKG - Nurse/Tech; Complete Time: 18:06 12/13 17:19 Order name: IV Saline Lock; Complete Time: 17:38 /13 17:19 Order name: Labs collected and sent; Complete Time: 17:51 jr8 Administered Medications: 17:15 Drug: NARcan 0.5 mg Route: IVP; Site: left antecubital; sv 17:30 Follow up: Response: No adverse reaction sv 20:32 Drug: NS 0.9% 1000 ml Route: IV; Rate: 1000 ml; Site: left antecubital; bb3 21:33 Follow up: Response: No adverse reaction; IV Status: Completed infusion; IV Intake: ea 1000ml Disposition: 12/13/19 20:50 Transfer ordered to [facility]. Diagnosis is Altered mental status, unspecified. - Reason for transfer: Higher level of care. - Accepting physician is Dr. Holly. - Condition is Stable. - Problem is new. - Symptoms are unchanged. Addendum: 12/16/2019 07:00 Co-signature as Attending Physician, Rob Calvo MD. r n Signatures: Dispatcher [employer] Mary Ellen Stuart RN Rob Levine MD MD rn Roszak, Josh, PA PA jr Courtney Reaves, RN RN Ayala Hilton RN Caren Bosotn ea bb3 Corrections: (The following items were deleted from the chart) 12/13 20:55 20:50 12/13/2019 20:50 Transfer ordered to [address] Diagnosis is Altered mental status, unspecified. Reason for transfer: Higher level of care. Accepting physician is Dr. Killian. Condition is Stable. Problem is new. Symptoms are unchanged. jr8 12/14 00:37 12/13 20:55 12/13/2019 20:50 Transfer ordered to [facility]. Diagnosis is Altered mental status, unspecified. Reason for transfer: Higher level of care. Accepting physician is Dr. Holly. Condition is Stable. Problem is new. Symptoms are unchanged. jr8
[2019-12-13 21:02] LABS: Arterial Blood Carboxyhemoglob 1.1 % (0-1.5); Blood Gas Oxyhemoglobin 89.4 % (94-97); Blood O2 Saturation 91.2 % (92-98.5)
[2019-12-14 01:25] VITALS: O2SAT 100
[2019-12-14 01:29] VITALS: BP 135/79; TEMP 99
--- NOTE | 2019-12-14 10:48 | RAD REPORT ---
EXAM DESCRIPTION: CT - Head Brain Wo Cont - 12/13/2019 10:47 pm CLINICAL HISTORY: Altered mental status. COMPARISON: 12/09/2019 TECHNIQUE: CT scan of the brain without IV contrast. This exam was performed according to our depa rtmental dose-optimization program, which includes automated exposure control, adjustment of the mA a nd/or kV according to patient size and/or use of iterative reconstruction technique. FINDINGS: The ventricles, cisterns, and sulci are age-appropriate. No evidence of acute infarction, intracranial hemorrhage, extra-axial fluid collection, or midline shift. No air-fluid levels are seen in the paranasal sinuses to suggest acute sinusitis. No depressed skull fracture. IMPRESSION: No acute intracranial findings. Electronically signed by: Frank De Jesus MD 12/13/2019 9:40 PM SOLE LEATHER CUTTING MACHINE OPERATOR Due to temporary technical issues with the PACS/Fluency reporting system, reports are being signed by the in house radiologist as a courtesy to ensure prompt reporting. The interpreting radiologist is f ully responsible for the content of the report.
--- NOTE | 2019-12-14 20:58 | EKG ---
Test Date: 2019-12-13 Test Time: 18:02:36 Design Teacher: DIEGO MEASUREMENT RESULTS: Intervals: Rate: 95 GA: 172 QRSD: 102 QT: 364 QTc: 457 [place]: P: 48 GA: 172 QRS: -10 T: 1 INTERPRETIVE STATEMENTS: Undetermined rhythm Nonspecific T wave abnormality Abnormal ECG Compared to ECG 12/09/2019 10:20:48 T-wave abnormality now present Sinus rhythm no longer present First degree AV block no longer present Electronically Signed On 12-14-19 20:55:14 MACHINE OPERATOR SLITTER TECHNICIAN by Roque Villafuerte
== END 2019-12-14 00:37 ==
LOC: ER 17:08
DX: R41.82 Altered mental status, unspecified (principal); I10 Essential (primary) hypertension; E66.9 Obesity, unspecified
CPT/HCPCS: 96361; 93005; 85025; 80048; 36415; 80320; 80329 ×2; 85610; 80076; 85730; 70450; 82805; 51702; 96374; 99291; 99292; J7030

== ENCOUNTER 2020-02-22 09:56 | Emergency (ER) | payer OTHER ==
[2020-02-22 10:45] LABS: Urine Blood 3+ (NEG); Urine Glucose NEGATIVE (NEG); Urine Protein 2+ (NEG); Urine Specific Gravity >1.030 (1.005-1.030)
[2020-02-22 10:46] LABS: Basophils % 0.5 % (0-1.3); Lymphocytes % 22.6 % (15.3-44.8); RBC Red Blood Cell Count 4.37 M/uL (4.33-5.43)
[2020-02-22 10:47] LABS: Protime INR 1.09
[2020-02-22 10:58] LABS: ALT/SGPT 20 U/L (12-78); AST/SGOT 18 U/L (15-37); Albumin 3.5 g/dL (3.4-5.0); Alkaline Phosphatase 77 U/L (45-117); BUN Blood Urea Nitrogen 19 mg/dL (7-18); Bicarbonate 27 mmol/L (21-32); Bilirubin Total 1.2 mg/dL (0.2-1.0); Glucose Level 116 mg/dL (74-106); Potassium 3.6 mmol/L (3.5-5.1); Protein, Total 7.4 g/dL (6.4-8.2); Sodium Level 143 mmol/L (136-145)
--- NOTE | 2020-02-22 11:01 | ER ---
Nurse's Notes [facility] Name: Eze Wallace Age: 74 yrs Sex: Male : 1945 Arrival Date: 02/22/2020 Time: 10:00 Bed 20 Private MD: Diagnosis: Hematuria, unspecified;Cystitis, unspecified with hematuria Presentation: 02/21 10:16 Chief complaint: Patient states: Blood in urine x 1 week. Pt states, "[facility] but now I can see the blood." Denies pain or fever. Coronavirus screen: Patient denies fever greater than 100.4F, cough, shortness of breath, or difficulty breathing. Proceed with normal triage process. Ebola Screen: Patient denies exposure to infectious person. Patient denies travel to an Ebola-affected area in the 21 days before illness onset. Initial Sepsis Screen: Does the patient meet any 2 criteria? No. Patient's initial sepsis screen is negative. Does the patient have a suspected source of infection? No. Patient's initial sepsis screen is negative. Risk Assessment: Do you want to hurt yourself or someone else? Patient reports no desire to harm self or others. 10:16 Method Of Arrival: Ambulatory ss 10:16 Acuity: MIRIAM 3 ss Historical: - Allergies: 10:18 No Known Allergies; ss - PMHx: 10:18 BPH; High Cholesterol; Hypertension; Obesity; ss - PSHx: 10:18 None; ss - Immunization history:: Adult Immunizations up to date. - Social history:: Smoking status: Patient denies any tobacco usage or history of. Patient/guardian denies using alcohol, street drugs, The patient lives with family. - Family history:: not pertinent. Screenin:29 Abuse screen: Denies threats or abuse. Nutritional screening: No deficits noted. tw2 Tuberculosis screening: No symptoms or risk factors identified. Fall Risk None identified. Assessment: 10:02 General: Appears in no apparent distress. obese, Behavior is calm, cooperative, tw2 appropriate for age. Pain: Denies pain. Neuro: Level of Consciousness is awake, alert, obeys commands, Oriented to person, place, time, situation. Cardiovascular: Denies chest pain, shortness of breath, Heart tones S1 S2 Patient's skin is warm and dry. Respiratory: Airway is patent Respiratory effort is even, unlabored, Respiratory pattern is regular, symmetrical, Breath sounds are clear bilaterally. GI: No signs and/or symptoms were reported involving the gastrointestinal system. Abdomen is round obese, Bowel sounds present X 4 quads. : Reports blood in urine. EENT: No signs and/or symptoms were reported regarding the EENT system. Derm: No signs and/or symptoms reported regarding the dermatologic system. Musculoskeletal: Range of motion: intact in all extremities. 11:14 Reassessment: Patient appears in no apparent distress at this time. No changes from tw2 previously documented assessment. Patient and/or family updated on plan of care and expected duration. Pain level reassessed. Patient is alert, oriented x 3, equal unlabored respirations, skin warm/dry/pink. Vital Signs: 10:16 BP 167 / 101; Pulse 106; Resp 20; Temp 98.2(TE); Pulse Ox 97% on R/A; Weight 179.17 kg; ss Height 6 ft. 0 in. (182.88 cm); Pain 0/10; 11:15 BP 142 / 97; Pulse 95; Resp 17; Pulse Ox 100% on R/A; tw2 10:16 Body Mass Index 53.57 (179.17 kg, 182.88 cm) ED Course: 10:00 Patient arrived in ED. mr 10:06 Sheldon Patel MD is Attending Physician. ma2 10:13 Shannon Mar, SAMI is Primary Nurse. tw2 10:15 Inserted saline lock: 22 gauge in left antecubital area, using aseptic technique. Blood kj1 collected. 10:15 Initial lab(s) drawn, by ok, sent to lab. kj1 10:15 Urine collected: clean catch specimen, blood tinged. kj1 10:17 Triage completed. ss 10:18 Arm band placed on right wrist. ss 10:30 Bed in low position. Call light in reach. tw2 10:32 Urine Microscopic Only Sent. kj1 10:59 Lesly Ghosh MD is Referral Physician. ma2 11:15 No provider procedures requiring assistance completed. IV discontinued, intact, tw2 bleeding controlled, No redness/swelling at site. Pressure dressing applied. Administered Medications: No medications were administered Outcome: 10:59 Discharge ordered by . ma2 11:15 Patient left the ED. tw2 11:15 Discharged to home ambulatory, with personal walker tw2 11:15 Condition: stable 11:15 Discharge instructions given to patient, Instructed on discharge instructions, follow up and referral plans. medication usage, Demonstrated understanding of instructions, follow-up care, medications, Prescriptions given X 1. Addendum: 02/25/2020 07:54 Addendum: Culture Results: Positive urine culture. No further action required. Bacteria e b sensitive to prescribed antibiotic. Signatures: Lyly Zuñiga Shelby, RN RN Shannon Mar RN RN tw2 Sheldon Patel MD MD ma2 Ana Maria Betancourt Kandis kj1 Corrections: (The following items were deleted from the chart) 02/21 10:30 10:29 Initial lab(s) drawn, by me, sent to lab. kj1 kj1
--- NOTE | 2020-02-22 11:01 | EDPHYS ---
Physician Documentation [facility] Name: Eze Wallace Age: 74 yrs Sex: Male : 1945 Arrival Date: 02/22/2020 Time: 10:00 Bed 20 Private MD: ED Physician Sheldon Patel HPI: 02/21 10:58 This 74 yrs old Black Male presents to ER via Ambulatory with complaints of Blood in ma2 urine. 10:58 Onset: The symptoms/episode began/occurred gradually, 2 day(s) ago. Associated signs ma2 and symptoms: Pertinent positives: dysuria, Pertinent negatives: abdominal pain, constipation, diarrhea, hematuria, nausea, vomiting. Severity of symptoms: At their worst the symptoms were mild, in the emergency department the symptoms are unchanged. The patient has not experienced similar symptoms in the past. Historical: - Allergies: 10:18 No Known Allergies; ss - PMHx: 10:18 BPH; High Cholesterol; Hypertension; Obesity; ss - PSHx: 10:18 None; ss - Immunization history:: Adult Immunizations up to date. - Social history:: Smoking status: Patient denies any tobacco usage or history of. Patient/guardian denies using alcohol, street drugs, The patient lives with family. - Family history:: not pertinent. ROS: 10:58 Constitutional: Negative for fever, chills, and weight loss. ma2 10:58 All other systems are negative. Exam: 10:58 Constitutional: This is a well developed, well nourished patient who is awake, alert, ma2 and in no acute distress. Chest/axilla: Normal chest wall appearance and motion. Nontender with no deformity. No lesions are appreciated. Cardiovascular: Regular rate and rhythm with a normal S1 and S2. No gallops, murmurs, or rubs. Normal PMI, no JVD. No pulse deficits. Respiratory: Lungs have equal breath sounds bilaterally, clear to auscultation and percussion. No rales, rhonchi or wheezes noted. No increased work of breathing, no retractions or nasal flaring. Abdomen/GI: Soft, non-tender, with normal bowel sounds. No distension or tympany. No guarding or rebound. No evidence of tenderness throughout. Vital Signs: 10:16 BP 167 / 101; Pulse 106; Resp 20; Temp 98.2(TE); Pulse Ox 97% on R/A; Weight 179.17 kg; ss Height 6 ft. 0 in. (182.88 cm); Pain 0/10; 11:15 BP 142 / 97; Pulse 95; Resp 17; Pulse Ox 100% on R/A; tw2 10:16 Body Mass Index 53.57 (179.17 kg, 182.88 cm) ss MDM: 10:06 Patient medically screened. ma2 10:58 Differential diagnosis: UTI, urinary retention, prostatitis, urethritis. Data reviewed: [facility] vital signs, nurses notes. Counseling: I had a detailed discussion with the patient and/or guardian regarding: the historical points, exam findings, and any diagnostic results supporting the discharge/admit diagnosis, the presence of at least one elevated blood pressure reading (>120/80) during this emergency department visit, the need for outpatient follow up. Response to treatment: the patient's symptoms have markedly improved after treatment. 02/21 10:06 Order name: PT-INR; Complete Time: 10:58 [facility] 02/21 10:06 Order name: CBC with Diff; Complete Time: 10:58 tx2 02/21 10:06 Order name: Urine Dipstick-Ancillary (obtain specimen); Complete Time: 10:32 tx2 02/21 10:06 Order name: CMP tx2 02/21 10:15 Order name: Urine Dipstick--Ancillary (enter results); Complete Time: 10:58 bd 02/21 10:15 Order name: Urine Microscopic Only bd 02/21 10:13 Order name: IV Start; Complete Time: 10:31 tw2 Administered Medications: No medications were administered Disposition: 02/22/20 10:59 Discharged to Home. Impression: Hematuria, unspecified, Cystitis, unspecified with hematuria. - Condition is Stable. - Discharge Instructions: Hematuria, Adult. - Prescriptions for Cipro 500 mg Oral Tablet - take 1 tablet by ORAL route every 12 hours for 7 days; 14 tablet. Bactrim DS 800- 160 mg Oral Tablet - take 1 tablet by ORAL route every 12 hours for 3 days; 6 tablet. - Medication Reconciliation Form, Thank You Letter, Antibiotic Education, Prescription Opioid Use form. - Follow up: Private Physician; When: Tomorrow; Reason: Continuance of care. Follow up: Lesly Ghosh MD; When: Tomorrow; Reason: Continuance of care. Signatures: Dispatcher [employer] Shirley Madden RN RN Shannon Yang RN RN tw2 Sheldon Patel MD MD ma2 Corrections: (The following items were deleted from the chart) 11:15 10:59 02/22/2020 10:59 Discharged to Home. Impression: Hematuria, unspecified; tw2 Cystitis, unspecified with hematuria. Condition is Stable. Forms are Medication Reconciliation Form, Thank You Letter, Antibiotic Education, Prescription Opioid Use. Follow up: Private Physician; When: Tomorrow; Reason: Continuance of care. Follow up: Lesly Ghosh; When: Tomorrow; Reason: Continuance of care. ma2
[2020-02-22 11:21] VITALS: TEMP 98.2
[2020-02-22 11:22] VITALS: BP 142/97; O2SAT 100
[2020-02-22 11:47] LABS: Urine Bacteria >50 /HPF (NONE SEEN); Urine Culture Reflex Order REFLEXED; Urine RBC LOADED /HPF (NONE SEEN)
== END 2020-02-22 11:15 | disposition home or self-care (01) ==
LOC: ER 09:56
DX: N30.91 Cystitis, unspecified with hematuria (principal); I10 Essential (primary) hypertension
CPT/HCPCS: 36415; 80053; 81003; 81015; 85025; 85610; 87077; 87086; 87088; 87186; 99283